=== PATIENT | female | born 1945 | race Caucasian/White ===

== ENCOUNTER → 2019-12-06 09:09 | Outpatient (BNVA) | payer MEDICARE, OTHER, SELFPAY | PROVIDERS: Family Provider Family Medicine; PCP Family Medicine; Visit Provider Family Medicine | DX: I10 Essential (primary) hypertension (principal); E78.2 Mixed hyperlipidemia; M25.50 Pain in unspecified joint; G89.29 Other chronic pain; Z86.711 Personal history of pulmonary embolism; I26.99 Other pulmonary embolism without acute cor pulmonale; Z79.01 Long term (current) use of anticoagulants; F17.219 Nicotine dependence, cigarettes, with unspecified nicotine-induced disorders | CPT/HCPCS: 36415; 80053; 80061; 80307; 82044; 85025 ==

== ENCOUNTER → 2019-12-24 12:53 | Outpatient (BNVA) | payer MEDICARE, OTHER, SELFPAY | PROVIDERS: Family Provider Family Medicine; PCP Family Medicine; Visit Provider Otolaryngology | DX: L30.9 Dermatitis, unspecified (principal); F17.210 Nicotine dependence, cigarettes, uncomplicated | CPT/HCPCS: 99213; 99214 ==

== ENCOUNTER 2020-03-03 19:46 | Emergency (ER) | payer MEDICARE, OTHER, SELFPAY ==
[2020-03-03 19:54] VITALS: PULSE 79; RESP 18; TEMP 36.9; O2SAT 96; BMI 35.2
[2020-03-03 19:57] VITALS: BP 188/93
--- NOTE | 2020-03-03 20:03 | ED_ITS ---
HPI - Extremity Problem General: Chief complaint: Extremity Problem,Nontraumatic Stated complaint: arm pain Time Seen by Provider: 03/03/20 20:01 History of Present Illness: HPI Narrative: Patient has a pain in her right forearm. She states that she is concerned this is a blood clot as she has had blood clots before. She is currently on Eliquis. She noticed the symptoms today as she was moving. She denies any other symptoms at this point in time such as chest pain or shortness of breath. She is concerned that pressure put on her right volar forearm by a box may have caused a blood clot. There is no other injuries or complaints. There is no overlying bruising or contusion noted. Associated symptoms: Deny chest pain, fever(s) or rash Review of Systems General: Reports: other (negative unless marked) Const: Denies: fever, chills, body aches, fatigue, malaise or diaphoresis Eyes: Denies: change in vision or blurry vision ENMT: Denies: throat pain, painful swallowing, hoarseness, ear pain, ear discharge, Change in hearing or nasal discharge Card: Denies: chest pain, palpitations, irregular heart rhythm, syncope, pre- syncope, shortness of breath on exertion or shortness of breath when lying down Resp: Denies: shortness of breath, productive cough, non-productive cough, wheezing, coughing up blood or chest congestion GI: Denies: abdominal pain, nausea, vomiting, vomiting blood, coffee grounds in vomit, diarrhea, constipation, cramping, blood in stool or black tarry stool : Denies: flank pain, painful urination, urinary frequency, urinary urgency, decreased urine ouput, urinary incontinence or blood in urine Musc: Denies: neck pain, back pain, extremity pain, extremity swelling, joint pain, joint swelling, joint warmth or joint stiffness Skin/Breast: Denies: rash, skin tenderness or yellow skin Neuro: Denies: headache, numbness in extremities, weakness in extremities, changes in sensation, lack of coordination, difficulty walking, dizziness, vertigo or confusion Endo: Denies: excessive thirst, tired all the time, cold intolerance, excessive sweating, flushing or hot flashes Reji/Lymph: Denies: easy bruising, easy bleeding, petechiae or enlarged lymph nodes All/Imm: Denies: hives, throat swelling, tongue swelling, facial swelling or acute wheezing PFSH ED PFSH: Medical History Benign essential HTN Cervical stenosis of spine Chronic joint pain Chronic obstructive pulmonary disease, unspecified Demyelinating disease Enrolled in chronic care management Gastro-esophageal reflux disease without esophagitis Mixed hyperlipidemia Personal history of transient ischemic attack (TIA), and cerebral infarction without residual deficits Pulmonary embolism on long-term anticoagulation therapy Renal function test abnormal Restless legs syndrome Spinal stenosis, lumbar region without neurogenic claudication Surgical History H/O: hysterectomy S/P bilateral cataract extraction S/P cervical spinal fusion S/P cholecystectomy S/P tonsillectomy and adenoidectomy Family History Other Heart disease Social History Smoking and tobacco status: current every day smoker cigarettes Packs smoked per day: 0.5 Alcohol intake: never Household members: spouse Marital status: Physical Exam Const: COMMON NORMALS: no apparent distress, oriented x3, no limitations, healthy appearing and well nourished EXAM LIMITATIONS: no altered mental status GENERAL APPEARANCE: cooperative, well kempt and well developed ORIENTATION/CONSCIOUSNESS: Yes awake HENMT: COMMON NORMALS: normocephalic, head/scalp atraumatic, hearing grossly normal bilaterally, external ears normal, EAC's normal, external nose normal and moist oral mucous membranes HEAD & SCALP: normal to inspection, normocephalic and atraumatic FACE & SINUS: normal facial exam and face symmetric NOSE: external nose normal and nares normal EXTERNAL EAR: Yes external ears normal EXTERNAL AUDITORY CANAL: EAC's normal MOUTH: oral and palatal mucosa normal and tongue normal Eye: COMMON NORMALS: PERRL, EOMs intact bilaterally, conjunctivae normal and no scleral icterus GENERAL EYE: normal appearance of both eyes and normal light reflex CONJUNCTIVA: Yes conjunctivae normal SCLERA: sclerae normal CORNEA: Yes corneas normal PUPIL: Yes PERRL DIRECT OPHTHALMOSCOPY: Yes normal light reflex Neck/C-Spine: COMMON NORMALS: full ROM, no lymphadenopathy, supple, no meningeal signs and no JVD GENERAL: Yes normal visual inspection and Yes trachea midline CERVICAL SPINE: Yes cervical ROM normal Chest: COMMONS NORMALS: inspection of chest normal and palpation of chest normal Resp: COMMON NORMALS: normal respiratory effort, no retractions, no use of accessory muscles and clear to auscultation bilaterally EFFORT & INSPECTION: Yes able to speak in complete sentences AUSCULTATION: clear to auscultation bilaterally Cardio: COMMON NORMALS: no JVD, regular rate, regular rhythm, S1 normal heart sound, S2 normal heart sound, no gallops, no clicks, no murmurs and no rub JUGULAR VENOUS DISTENTION: no JVD RATE: regular rate RHYTHM: regular rhythm HEART SOUNDS: S1 normal and S2 normal GI: COMMON NORMALS: soft to palpation, non-tender, no hepatosplenomegaly and no masses INSPECTION: Yes normal to inspection PALPATION: Yes soft and Yes no hepatosplenomegaly : COMMON NORMALS: Yes no CVA tenderness BLADDER/KIDNEY EXAM: Yes no CVA tenderness Back/Pelvis: COMMON NORMALS: no CVA tenderness, thoracic and lumbar spine normal to inspection, no thoracic nor lumbar tenderness and thoraco-lumbar ROM normal Extremity: COMMON NORMALS: normal to inspection, full ROM, normal capillary refill, no joint enlargement, no clubbing, cyanosis or edema and no calf tenderness Neuro: COMMON NORMALS: oriented x3, CN's II-XII intact bilaterally, moves all extremities, no focal motor deficits and no sensory deficits noted MENINGEAL SIGNS: Yes no meningeal signs Psych: COMMON NORMALS: mental status grossly normal, thought process normal, cooperative, affect normal, speech normal and activity/motor behavior normal APPEARANCE: Yes well kempt SPEECH: Yes normal speech THOUGHT PROCESS: normal thought process Skin: COMMON NORMALS: no rashes or lesions noted, skin turgor normal, no jaundice, no petechiae and no mottling GENERAL SKIN EXAM: no rashes or lesions noted and turgor normal Course Vital Signs: Vital signs: Vital Signs Temperature 98.5 F 03/03/20 19:54 Pulse Rate 87 03/03/20 21:43 Respiratory Rate 18 03/03/20 21:43 Blood Pressure 169/75 03/03/20 21:43 Pulse Oximetry 98 03/03/20 21:43 MDM - Extremity (Nontraumatic) MDM Narrative: Medical decision making narrative: Patient's ultrasound is negative. She is reassured to hear this. She denies any other questions or concerns she is satisfied with this and would like to go home. I see no evidence of significant hematoma on the surface but will wait and treat her for possible underlying hematoma. Patient denies any radicular symptoms to me. She has no other complaints or concerns and now that she has the answer of no blood clot she wants to be discharged as soon as possible. Imaging Data^: US: Radiologist's impression: Ultrasound right upper extremity venous Doppler - negative for DVT. Discharge Plan Discharge Patient Disposition: Home, Self-Care Clinical Impression: Arm pain Qualifiers: Laterality: right Qualified Code(s): M79.601 - Pain in right arm Condition: Stable Prescriptions: No Action Eliquis 5 mg tablet 5 mg PO BID Qty: 60 RF: 2 tramadol 50 mg tablet 100 mg PO Q8H PRN (Reason: pain) Qty: 180 RF: 1 pantoprazole [Protonix] 40 mg tablet,delayed release (DR/EC) 40 mg PO ONCE Qty: 90 RF: 1 fluconazole 150 mg tablet 150 mg PO DAILY Qty: 2 RF: 0 furosemide [Lasix] 20 mg tablet 20 mg PO QAM RF: 0 potassium chloride 10 mEq tablet,ER particles/crystals 10 meq PO .QOD RF: 0 nystatin 100,000 unit/gram cream 1 applic TOPICAL BID RF: 0 metoprolol tartrate 50 mg tablet 50 mg PO Q12H Qty: 60 RF: 3 atorvastatin [Lipitor] 10 mg tablet 10 mg PO .at bedtime Qty: 7 RF: 0 valsartan 320 mg tablet 320 mg PO DAILY Qty: 30 RF: 1 Referrals: Alisia Ferguson DO [Primary Care Provider] - 4-7 days Discharge Diet: Advance as tolerated Discharge Activity: Increase activity as tolerated Patient Instructions: Contusion in Adults (ED) Activity Restrictions/Additional Instructions: Please return to the ER immediately for any of the signs or symptoms listed on your discharge instruction sheets, worsening/changing of your symptoms, you are not getting better as quickly as expected, or for ANY other cause or concerns. Discharge Date/Time: 03/03/20 21:44 Coding Level of Care Code ED Nougat Cutter Machine for Fredis Fwd Exam Comprehensive
--- NOTE | 2020-03-03 20:03 | USCV_ITS ---
[place], [place] Age: 74 Gender: F : 1945 Exam Date: 03/03/2020 21:08 Ordering Phys: Kirsta Hines DO Technologist: Tim Murillo [place]am Location[place] [facility] [place]ication: RT ARM PAIN AND SWELLING HISTORY: Upper extremity pain. PROCEDURES: Venous duplex imaging was performed in only the right upper extremity. The following venous structures were evaluated: internal jugular vein, subclavian vein, axillary vein, and brachial veins. In addition, the basilic vein and cephalic vein. FINDINGS: No evidence of deep vein thrombosis or superficial thrombophlebitis in the right upper extremity. CONCLUSIONS No evidence of thrombus of the right upper extremity veins. Ronal Fleming MD (Electronically Signed) Final Date: 05 March 2020 13:14 S
[2020-03-03 20:57] VITALS: PULSE 66
[2020-03-03 21:43] VITALS: BP 169/75; PULSE 87; RESP 18; O2SAT 98
== END 2020-03-03 21:44 | disposition home or self-care (01) ==
PROVIDERS: Emergency Provider Emergency Medicine; Family Provider Family Medicine; PCP Family Medicine
DX: M79.601 Pain in right arm (principal); J44.9 Chronic obstructive pulmonary disease, unspecified; K21.9 Gastro-esophageal reflux disease without esophagitis; I10 Essential (primary) hypertension; E78.2 Mixed hyperlipidemia; I26.99 Other pulmonary embolism without acute cor pulmonale; Z86.73 Personal history of transient ischemic attack (TIA), and cerebral infarction without residual deficits; G25.81 Restless legs syndrome; Z79.01 Long term (current) use of anticoagulants; F17.210 Nicotine dependence, cigarettes, uncomplicated
CPT/HCPCS: 12345; 93971; 99281; 99282

== ENCOUNTER → 2020-04-15 11:38 | Outpatient (BNVA) | payer MEDICARE, OTHER, SELFPAY | PROVIDERS: Family Provider Family Medicine; PCP Family Medicine; Visit Provider Family Medicine | DX: L30.9 Dermatitis, unspecified (principal); E78.2 Mixed hyperlipidemia | CPT/HCPCS: 80053; 80061 ==

== ENCOUNTER → 2020-06-15 09:55 | Outpatient (BNVA) | payer MEDICARE, OTHER, SELFPAY | PROVIDERS: Family Provider Family Medicine; PCP Family Medicine; Referring Provider Family Medicine; Visit Provider Specialist | DX: M17.11 Unilateral primary osteoarthritis, right knee (principal); I26.99 Other pulmonary embolism without acute cor pulmonale; Z79.01 Long term (current) use of anticoagulants; I83.93 Asymptomatic varicose veins of bilateral lower extremities | CPT/HCPCS: 73560; 73565; 87081 ==

== ENCOUNTER → 2020-07-28 10:23 | Outpatient (BNVA) | payer MEDICARE, OTHER, SELFPAY | PROVIDERS: Family Provider Family Medicine; PCP Family Medicine; Visit Provider Family Medicine | DX: Z01.818 Encounter for other preprocedural examination (principal); I10 Essential (primary) hypertension; Z68.34 Body mass index [BMI] 34.0-34.9, adult; F17.219 Nicotine dependence, cigarettes, with unspecified nicotine-induced disorders | CPT/HCPCS: 80053; 85025 ==

== ENCOUNTER → 2020-10-04 10:07 | Outpatient (BNVA) | payer MEDICARE, OTHER, SELFPAY | PROVIDERS: Family Provider Family Medicine; PCP Family Medicine; Visit Provider Nurse Practitioner | DX: R30.9 Painful micturition, unspecified (principal); N39.0 Urinary tract infection, site not specified | CPT/HCPCS: 81000; 87086 ==

== ENCOUNTER 2020-10-19 18:20 | Emergency (ER) | payer MEDICARE, OTHER, SELFPAY ==
[2020-10-19 19:03] VITALS: BP 199/97; PULSE 66; RESP 16; TEMP 36.7; O2SAT 98
--- NOTE | 2020-10-19 20:34 | ED_ITS ---
HPI - General Adult General: Chief complaint: General Medical Stated complaint: high bp/most recent 186/101 Time Seen by Provider: 10/19/20 20:22 History of Present Illness: HPI narrative: Patient is a 75-year-old female comes to the ED with elevated blood pressure. Patient says she has been working with her primary care physician to help get her blood pressure controlled. She is currently on metoprolol 50 mg twice a day 1 in the morning and 1 at night and lisinopril 20 mg 1 in the morning and 1 at night. Her PCP has been having trouble getting her blood pressure controlled and sent her over to see interactive designer. Patient says she was just prescribed an additional blood pressure medication which is a diuretic that is at her pharmacy right now and she is going to pick it up and start taking it tomorrow to try and help with her blood pressures. Patient said her blood pressure at home before coming to the ED was around 210/105. She reports having no symptoms at all. Denies any headache or vision changes or any other neurological symptoms. She states this is been an ongoing issue and her primary care physician has had trouble controlling her blood pressure. Associated symptoms: Deny chest pain, dyspnea, headache(s), nausea, rash, palpitations or vomiting Review of Systems Narrative: Elevated blood pressure but denies any symptoms. Const: Denies: fever(s), chills or fatigue Eyes: Denies: change in vision or eye discomfort ENMT: Denies: throat pain, odynophagia, nasal discharge or nasal congestion Card: Denies: chest pain, palpitations, edema, swelling of feet/ankles, dyspnea on exertion or orthopnea Resp: Denies: dyspnea, productive cough or non-productive cough GI: Denies: abdominal pain, nausea, vomiting, diarrhea, constipation or hematochezia : Denies: flank pain, dysuria or hematuria Musc: Denies: neck pain, back pain or extremity swelling Skin/Breast: Denies: rash or new lesions Neuro: Denies: headache(s), numbness in extremities or weakness in extremities PFS ED PFSH: Medical History Cervical stenosis of spine Chronic joint pain Chronic obstructive pulmonary disease, unspecified Demyelinating disease Gastro-esophageal reflux disease without esophagitis Mixed hyperlipidemia Personal history of transient ischemic attack (TIA), and cerebral infarction without residual deficits Pulmonary embolism on long-term anticoagulation therapy Renal function test abnormal Restless legs syndrome Spinal stenosis, lumbar region without neurogenic claudication Surgical History H/O: hysterectomy S/P bilateral cataract extraction S/P cervical spinal fusion S/P cholecystectomy S/P tonsillectomy and adenoidectomy Family History Other Heart disease Social History Smoking and tobacco status: current every day smoker cigarettes Packs smoked per day: 0.25 Alcohol intake: never Household members: spouse Marital status: Physical Exam Const: COMMON NORMALS: no acute distress, patient oriented x3, healthy appearing and alert GENERAL APPEARANCE: cooperative and comfortable HENMT: COMMON NORMALS: normocephalic HEAD & SCALP: normocephalic MOUTH: Normal oral and palatal mucosa present THROAT: posterior oropharynx normal and uvula midline Neck/C-Spine: COMMON NORMALS: supple GENERAL: Yes normal visual inspection Resp: COMMON NORMALS: normal respiratory effort, No retractions, No use of accessory muscles and clear to auscultation bilaterally AUSCULTATION: clear to auscultation bilaterally Cardio: COMMON NORMALS: regular rate, regular rhythm, S1 normal heart sound present, S2 normal heart sound present, No gallops present (Cardio), No clicks present (Cardio), No murmurs present (Cardio) and Peripheral pulses 2+ throughout RATE: regular rate RHYTHM: regular rhythm HEART SOUNDS: S1 normal heart sound present and S2 normal heart sound present PERIPHERAL PULSES: Peripheral pulses 2+ throughout GI: COMMON NORMALS: Normal to inspection, nondistended, normoactive bowel sounds present, Soft to palpation, non-tender and no masses PALPATION: Yes Soft to palpation : COMMON NORMALS: Yes no CVA tenderness BLADDER/KIDNEY EXAM: Yes no CVA tenderness Back/Pelvis: COMMON NORMALS: no CVA tenderness Extremity: COMMON NORMALS: normal to inspection and no pedal edema Neuro: COMMON NORMALS: patient oriented x3, CN's II-XII intact bilaterally, moves all extremities, no focal motor deficits and no sensory deficits noted SENSORIUM/ORIENTATION: Yes alert COORDINATION/BALANCE: [id number] test normal SPEECH: speech normal GAIT: Yes Normal gait present SENSORY EXAM: Yes extremities (intact to soft touch) MOTOR EXAM: 5/5 motor strength present throughout COORDINATION: [id number] test normal Skin: GENERAL SKIN EXAM: dry skin Course Reevaluation(s): Reevaluation #1: Blood pressure was 189/95 when I went in and checked on patient after she received hydralazine Time: 22:02 Vital Signs: Vital signs: Vital Signs Temperature 98.0 F 10/19/20 19:03 Pulse Rate 66 10/19/20 19:03 Respiratory Rate 16 10/19/20 19:03 Blood Pressure 183/92 10/19/20 22:54 Pulse Oximetry 98 10/19/20 19:03 Blood pressure was 189/95 when I went in and checked on patient after she received hydralazine MDM - General Adult MDM Narrative: Medical decision making narrative: Patient is a 75-year-old female comes the ED with elevated blood pressure. Patient's blood pressure was 204/89 while here in the ED. she has no symptoms. Patient did say that her PCP just added another blood pressure medication for patient to take and it is currently at the pharmacy and she will start taking it tomorrow. She currently takes lisinopril 20 mg twice daily and metoprolol 50 mg twice daily. Neuro exam was completely normal and the rest of physical exam was normal. Patient appeared in no acute distress or pain. Patient was given IV hydralazine 2 doses of 10 mg and blood pressure went down to 183/92 and she was discharged. 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 Return to ED precautions given. Patient understood agree with plan. Discharge Plan Discharge Patient Disposition: Home Clinical Impression: Hypertensive urgency Condition: Stable Prescriptions: No Action potassium chloride 10 mEq tablet,ER particles/crystals 10 meq PO .QOD RF: 0 furosemide [Lasix] 20 mg tablet 20 mg PO QAM Qty: 90 RF: 0 lisinopril 20 mg tablet 40 mg PO BID RF: 0 metoprolol tartrate 50 mg tablet 50 mg PO Q12H Qty: 60 RF: 3 phenazopyridine [Pyridium] 200 mg tablet 200 mg PO TID Qty: 6 RF: 0 pantoprazole [Protonix] 40 mg tablet,delayed release (DR/EC) 40 mg PO ONCE Qty: 90 RF: 1 Xarelto 20 mg tablet 20 mg PO DAILY Qty: 30 RF: 1 tramadol 50 mg tablet 100 mg PO Q8H PRN (Reason: pain) Qty: 180 RF: 0 hydralazine 50 mg tablet 50 mg PO TID Qty: 120 RF: 1 Discharge Orders: Discharge Order (Routine); Ordered 10/19/20 Ordered By: Gt Encarnacion Referrals: Alisia Ferguson DO [Primary Care Provider] - Discharge Diet: Regular Discharge Activity: Increase activity as tolerated Patient Instructions: Chronic Hypertension (ED), Hypertensive Crisis (ED) Activity Restrictions/Additional Instructions: Follow-up with medical provider as directed in 7 to 10 days. Continue taking all home medications as prescribed. Make sure to metal pickling equipment operator your new blood pressure medication tomorrow and start taking it to help with blood pressure control. Return to the ER or your medical provider if condition worsens. Please read and understand discharge instructions. If any questions, please ask. Coding Level of Care Code ED Psychology Assistant for Fredis Fwd Exam Detailed
[2020-10-19 21:38] VITALS: BP 195/109
[2020-10-19] MEDS: hyDRALAzine 20 mg/mL INJ 1 mL 10 MG IVP ×2 (21:43→22:25)
[2020-10-19 22:43] VITALS: BP 201/84
[2020-10-19 22:54] VITALS: BP 183/92
== END 2020-10-19 22:55 | disposition home or self-care (01) ==
PROVIDERS: Emergency Provider Physician Assistant; PCP Family Medicine
DX: I16.0 Hypertensive urgency (principal); E78.2 Mixed hyperlipidemia; F17.210 Nicotine dependence, cigarettes, uncomplicated
CPT/HCPCS: 12345; 96374; 96375; 96376; 99282; 99283; J0360

== ENCOUNTER 2020-10-21 11:36 | Emergency (ER) | payer MEDICARE, OTHER, SELFPAY ==
[2020-10-21 11:37] VITALS: BP 188/82; PULSE 116; RESP 20; TEMP 36.6; O2SAT 95; BMI 33.7
[2020-10-21 11:48] VITALS: BP 172/94; PULSE 60; RESP 16; O2SAT 96
--- NOTE | 2020-10-21 11:50 | XR_ITS ---
WS: [id number] XR chest 1V portable [id number] REASON FOR EXAM: dyspnea/cough FINDINGS: Mild tortuosity of the thoracic aorta. Heart is at the upper limits of normal in size. No active pulmonary parenchymal or pleural disease is noted. Calcified granulomatous changes are seen in both hemithoraces. Moderate degenerative changes in both shoulders. Moderate degenerative spondylosis in the mid and low er thoracic spine. XR/XR chest 1V portable [id number] IMPRESSION: No acute chest abnormality.
--- NOTE | 2020-10-21 11:50 | ECG_ITS ---
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: : 1945 Requested By: Jacinto Orozco Order Number: [id number] Luis Alberto MD: EVARISTO RUDD Measurements Intervals [place] Rate: 58 P: 59 MN: 174 QRS: 14 QRSD: 109 T: 48 QT: 428 QTc: 424 Interpretive Statements SINUS BRADYCARDIA INCOMPLETE RIGHT BUNDLE BRANCH BLOCK [90+ ms QRS DURATION, TERMINAL R IN V1/V2, 40+ ms S IN I/aVL/V4/V5/V6] Compared to ECG 01/21/2019 17:42:38 Incomplete right bundle-branch block now present Sinus rhythm no longer present Intraventricular conduction delay no longer present ST (T wave) deviation no longer present Electronically Signed On 10-22-2020 15:23:16 HAND SPRAYER by EVARISTO RUDD [email or web address]
[2020-10-21 12:01] LABS: Basophils % 0.4 %; Eosinophils # 0.1 10^3/uL (0.0-0.8); Eosinophils % 0.9 %; Hemoglobin 16.1 g/dL (11.5-15.3); Lymphocytes # 2.7 10^3/uL (0.8-4.8); Mean Corpuscular HGB Conc 31.6 g/dL (30.0-36.0); Mean Corpuscular Hemoglobin 29.9 pg (28.0-34.0); Mean Corpuscular Volume 94.6 fL (81-99); Mean Platelet Volume 11.7 fL (7.4-10.4); Monocytes # 0.5 10^3/uL (0.2-0.9); Monocytes % 5.1 %; Neutrophils # 6.27 10^3/uL (1.8-7.7); Neutrophils % 65.3 %; Nucleated Red Blood Cells % 0 %; Platelet Count 307 10^3/cmm (130-400); Red Blood Count 5.39 10^6/uL (4.1-5.3); Red Cell Distribution Width 13.5 % (12.1-15.1); White Blood Count 9.6 10^3/uL (4.0-10.0)
--- NOTE | 2020-10-21 12:06 | PC.NURSE ---
Report given to ADA Ramon
[2020-10-21] MEDS: hyDRALAzine 50 mg Tablet PO (12:09)
--- NOTE | 2020-10-21 12:13 | PC.NURSE ---
XR performed at bedside.
[2020-10-21 12:19] LABS: Alanine Aminotransferase 9 U/L (0-33); Albumin Level 3.7 g/dL (3.5-5.2); Alkaline Phosphatase 129 IU/L (35-105); Anion Gap 15.9 (5-19); Aspartate Amino Transferase 14 U/L (0-32); Blood Urea Nitrogen 9 mg/dL (8-23); Calcium 9.1 mg/dL (8.5-10.5); Carbon Dioxide 24 mmol/L (22-29); Chloride 102 mmol/L (98-107); Globulin 3.7 g/dL (1.3-4.6); Glucose 152 mg/dL (65-115); Osmolality Calculated 288 mOsm/kg (285-295); Potassium 3.9 mmol/L (3.5-5.1); Sodium 138 mmol/L (136-145); Total Bilirubin 0.3 mg/dL (0.15-1.2); Total Protein 7.4 g/dL (6.6-8.7)
[2020-10-21 13:27] VITALS: BP 172/93; PULSE 66; RESP 15; O2SAT 97
[2020-10-21 14:15] VITALS: BP 162/84
--- NOTE | 2020-10-21 15:14 | W.ED.GENADLT ---
HPI - General Adult General: Chief complaint: General Medical Stated complaint: SYMPTOMATIC HTN Time Seen by Provider: 10/21/20 11:39 History of Present Illness: HPI narrative: 75-year-old female presents emergency room with complaint of elevated blood pressure. She is recently and was seen before for elevated blood pressure medication adjustments were made despite this she continues to have elevated blood pressure at home. She is on multiple antihypertensives. He has not had any difficulty with speech or swallowing no focal neurologic deficits no chest pain. Onset (ago): day(s) Location: head Severity: moderate Relieving factors: none Exacerbating factors: none Associated symptoms: Reports headache(s) and malaise; Deny chest pain, confusion, cough, diaphoresis, decreased appetite, dyspnea, fevers/chills, nausea, rash, palpitations, seizures, short of breath, syncope, vomiting or weakness Review of Systems Const: Reports: malaise; Denies: diaphoresis ENMT: Denies: throat pain, ear or mastoid pain, nasal discharge or nasal congestion Card: Denies: chest pain, palpitations or syncope Resp: Denies: dyspnea GI: Denies: nausea or vomiting : Denies: flank pain, difficulty voiding, dysuria, urinary frequency or urinary urgency Skin/Breast: Denies: rash Neuro: Reports: headache(s); Denies: confusion PFSH ED PFSH: Medical History Cervical stenosis of spine Chronic joint pain Chronic obstructive pulmonary disease, unspecified Demyelinating disease Gastro-esophageal reflux disease without esophagitis Mixed hyperlipidemia Personal history of transient ischemic attack (TIA), and cerebral infarction without residual deficits Pulmonary embolism on long-term anticoagulation therapy Renal function test abnormal Restless legs syndrome Spinal stenosis, lumbar region without neurogenic claudication Surgical History H/O: hysterectomy S/P bilateral cataract extraction S/P cervical spinal fusion S/P cholecystectomy S/P tonsillectomy and adenoidectomy Family History Other Heart disease Social History Smoking and tobacco status: current every day smoker cigarettes Packs smoked per day: 0.25 Alcohol intake: never Household members: spouse Marital status: Physical Exam Const: COMMON NORMALS: no acute distress GENERAL APPEARANCE: cooperative and comfortable ORIENTATION/CONSCIOUSNESS: Yes awake, Yes oriented to person, Yes oriented to place and Yes oriented to time HENMT: COMMON NORMALS: normocephalic, atraumatic and hearing grossly normal bilaterally HEAD & SCALP: normocephalic and atraumatic Neck/C-Spine: COMMON NORMALS: no JVD Resp: COMMON NORMALS: normal respiratory effort, No retractions, No use of accessory muscles and clear to auscultation bilaterally AUSCULTATION: clear to auscultation bilaterally Cardio: COMMON NORMALS: no JVD, regular rate, regular rhythm and No murmurs present (Cardio) RATE: regular rate RHYTHM: regular rhythm GI: COMMON NORMALS: Soft to palpation and No hepatosplenomegaly present AUSCULTATION: Yes normoactive bowel sounds PALPATION: Yes Soft to palpation, No Tenderness to palpation present (GI), No Guarding due to palpation present (GI) and Yes No hepatosplenomegaly present Extremity: COMMON NORMALS: normal to inspection, capillary refill normal, no clubbing, cyanosis or edema, no calf tenderness and no pedal edema Neuro: SENSORIUM/ORIENTATION: Yes oriented to person, Yes oriented to place and Yes oriented to time Skin: COMMON NORMALS: no rashes or lesions noted GENERAL SKIN EXAM: no rashes or lesions noted Course Vital Signs: Vital signs: Vital Signs Temperature 97.8 F 10/21/20 11:37 Pulse Rate 65 10/21/20 15:40 Respiratory Rate 14 10/21/20 15:40 Blood Pressure 156/112 10/21/20 15:40 Pulse Oximetry 65 L 10/21/20 15:40 MDM - General Adult MDM Narrative: Medical decision making narrative: Reviewed findings with patient we will get a go ahead and discharge her home did encourage her to follow-up with her primary care Dr. Hernandez medicine list initially lisinopril was listed as 50 mg 3 times daily we went to talk to her to discharge her she states it was supposed to be 75 3 times daily but she has not been taking it we will go ahead and discharge her home on the 75 3 times daily follow-up with her primary care doctor within the next 4 to 5 days. Lab Data: Labs: Lab Results 10/21/20 10/21/20 Range/Units 11:15 11:15 WBC 9.6 (4.0-10.0) 10^3/ uL RBC 5.39 H (4.1-5.3) 10^6/u L Hgb 16.1 H (11.5-15.3) g/dL Hct 51.0 H (37.0-47.0) % MCV 94.6 (81-99) fL MCH 29.9 (28.0-34.0) pg MCHC 31.6 (30.0-36.0) g/dL RDW 13.5 (12.1-15.1) % Plt Count 307 (130-400) 10^3/c mm MPV 11.7 H (7.4-10.4) fL Neut % (Auto) 65.3 % Lymph % (Auto) 28.0 % [place] % (Auto) 5.1 % Eos % (Auto) 0.9 % Baso % (Auto) 0.4 % Neut # (Auto) 6.27 (1.8-7.7) 10^3/u L Lymph # (Auto) 2.7 (0.8-4.8) 10^3/u L [place] # (Auto) 0.5 (0.2-0.9) 10^3/u L Eos # (Auto) 0.1 (0.0-0.8) 10^3/u L Baso # (Auto) 0.0 (0.0-0.1) 10^3/u L Nucleated RBC % (a uto) 0 % Nucleated RBCs # 0.0 /100WBC Sodium 138 (136-145) mmol/L Potassium 3.9 (3.5-5.1) mmol/L Chloride 102 (98-107) mmol/L Carbon Dioxide 24 (22-29) mmol/L Anion Gap 15.9 (5-19) BUN 9 (8-23) mg/dL Creatinine 0.8 (0.5-0.9) mg/dL GFR Calculation Not Reportable Glucose 152 H (65-115) mg/dL Calculated Osmolal ity 288 (285-295) mOsm/k g Calcium 9.1 (8.5-10.5) mg/dL Total Bilirubin 0.3 (0.15-1.2) mg/dL AST 14 (0-32) U/L ALT 9 (0-33) U/L Alkaline Phosphata se 129 H (35-105) IU/L Total Protein 7.4 (6.6-8.7) g/dL Albumin 3.7 (3.5-5.2) g/dL Globulin 3.7 (1.3-4.6) g/dL Discharge Plan Discharge Patient Disposition: Home Clinical Impression: Uncontrolled hypertension Condition: Stable Prescriptions: Changed hydralazine 50 mg tablet 75 mg PO TID Qty: 120 RF: 1 No Action potassium chloride 10 mEq tablet,ER particles/crystals 10 meq PO .QOD RF: 0 furosemide [Lasix] 20 mg tablet 20 mg PO QAM Qty: 90 RF: 0 lisinopril 20 mg tablet 40 mg PO BID RF: 0 metoprolol tartrate 50 mg tablet 50 mg PO Q12H Qty: 60 RF: 3 phenazopyridine [Pyridium] 200 mg tablet 200 mg PO TID Qty: 6 RF: 0 Xarelto 20 mg tablet 20 mg PO DAILY Qty: 30 RF: 1 tramadol 50 mg tablet 100 mg PO Q8H PRN (Reason: pain) Qty: 180 RF: 0 Protonix 40 mg tablet,delayed release (DR/EC) 40 mg PO DAILY RF: 0 Discharge Orders: Discharge Order (Routine); Ordered 10/21/20 Ordered By: Jacinto Bennett Referrals: Alisia Ferguson DO [Primary Care Provider] - Discharge Diet: Usual diet Discharge Activity: Increase activity as tolerated Activity Restrictions/Additional Instructions: Increase hydralazine to 75 mg 3 times daily. Follow-up with your primary care doctor within 5 to 6 days for reevaluation of blood pressure. If any worsening problems return. Coding Level of Care Code ED Telecommunication Equipment Repairer for Fredis Vick
[2020-10-21 15:40] VITALS: BP 156/112; PULSE 65; RESP 14; O2SAT 65
--- NOTE | 2020-10-26 13:59 | DCPLANNER ---
client relationship manager had message to schedule a follow up appointment for patient with [facility]. client relationship manager called [facility], spoke with Mel, gave clinic patients information. A follow up appointment was scheduled for Monday, October 28, 2020 at 1:45 with Mitali Teran NP. client relationship manager will let patient know of scheduled appointment.
--- NOTE | 2020-10-29 15:10 | DCPLANNER ---
Patient did attend appointment scheduled for 10.28.20 with [facility] - patient did attend appointment.
== END 2020-10-21 15:41 | disposition home or self-care (01) ==
PROVIDERS: Emergency Provider Family Medicine; PCP Family Medicine
DX: I10 Essential (primary) hypertension (principal); J44.9 Chronic obstructive pulmonary disease, unspecified; E78.2 Mixed hyperlipidemia; F17.210 Nicotine dependence, cigarettes, uncomplicated
CPT/HCPCS: 12345; 71045; 80053; 85025; 93005; 99282; 99283

== ENCOUNTER 2020-10-26 11:33 | Emergency (ER) | payer MEDICARE, OTHER, SELFPAY ==
[2020-10-26 12:06] VITALS: BP 172/92; PULSE 82; RESP 14; TEMP 36.4; O2SAT 95; BMI 33.4
--- NOTE | 2020-10-26 12:13 | ECG_ITS ---
[facility] Test Date: 2020-10-26 Pat Name: Kathie Valerio Department: Room: Gender: Female Network Control Supervisor: : 1945 Requested By: Elsy Theodore Order Number: [id number] Luis Alberto MD: EVARISTO RUDD Measurements Intervals [place] Rate: 68 P: 63 OK: 170 QRS: 17 QRSD: 110 T: 62 QT: 447 QTc: 478 Interpretive Statements SINUS RHYTHM WITH FREQUENT SUPRAVENTRICULAR PREMATURE COMPLEXES POSSIBLE INFERIOR MYOCARDIAL INFARCTION [30 ms Q WAVE IN II/aVF], PROBABLY OLD ABNORMAL RHYTHM ECG Compared to ECG 10/21/2020 12:00:59 Myocardial infarct finding now present Sinus bradycardia no longer present Incomplete right bundle-branch block no longer present Electronically Signed On 10-26-2020 17:24:13 ALUMNAE SECRETARY by EVARISTO RUDD [id number]
--- NOTE | 2020-10-26 14:05 | W.ED.GENADLT ---
HPI - General Adult General: Chief complaint: General Medical Stated complaint: High BP Time Seen by Provider: 10/26/20 12:16 History of Present Illness: HPI narrative: 75 yo female presetn with complaints of elevated BP. SHe was seen here recently for the same adn her hydralazine was increased. Today she reports elevated BP in the 200-220 systolic range. she re[ports having taken all of her meds. on presentation here her systolic BP is in the 150 range. Reports having some head fullness and discomfort in the back of her neck earlier that is all resolved she thought she had a little weakness in her left leg but she denies any difficulty with walking. No dizziness no difficulty speech or swallowing. Onset (ago): day(s) Location: head Radiation: non-radiation Severity: mild Relieving factors: medication Exacerbating factors: none Associated symptoms: Deny chest pain, confusion, cough, diaphoresis, decreased appetite, dyspnea, fevers/chills, headache(s), malaise, nausea, rash, palpitations, seizures, short of breath, syncope, vomiting or weakness Treatments prior to arrival: none Review of Systems Const: Denies: malaise or diaphoresis ENMT: Denies: throat pain, ear or mastoid pain, nasal discharge or nasal congestion Card: Denies: chest pain, palpitations or syncope Resp: Denies: dyspnea GI: Denies: nausea or vomiting : Denies: flank pain, difficulty voiding, dysuria, urinary frequency or urinary urgency Skin/Breast: Denies: rash Neuro: Denies: headache(s) or confusion PFS ED PFSH: Medical History Cervical stenosis of spine Chronic joint pain Chronic obstructive pulmonary disease, unspecified Demyelinating disease Gastro-esophageal reflux disease without esophagitis Mixed hyperlipidemia Personal history of transient ischemic attack (TIA), and cerebral infarction without residual deficits Pulmonary embolism on long-term anticoagulation therapy Renal function test abnormal Restless legs syndrome Spinal stenosis, lumbar region without neurogenic claudication Surgical History H/O: hysterectomy S/P bilateral cataract extraction S/P cervical spinal fusion S/P cholecystectomy S/P tonsillectomy and adenoidectomy Family History Other Heart disease Social History Smoking and tobacco status: current every day smoker cigarettes Packs smoked per day: 0.25 Alcohol intake: never Household members: spouse Marital status: Physical Exam Const: COMMON NORMALS: no acute distress GENERAL APPEARANCE: cooperative and comfortable ORIENTATION/CONSCIOUSNESS: Yes awake, Yes oriented to person, Yes oriented to place and Yes oriented to time HENMT: COMMON NORMALS: normocephalic, atraumatic and hearing grossly normal bilaterally HEAD & SCALP: normocephalic and atraumatic Eye: COMMON NORMALS: Equal, round and reactive pupils present, EOMs intact bilaterally, conjunctivae normal and no scleral icterus CONJUNCTIVA: Yes conjunctivae normal PUPIL: Yes Equal, round and reactive pupils present Neck/C-Spine: COMMON NORMALS: no JVD Resp: COMMON NORMALS: normal respiratory effort, No retractions, No use of accessory muscles and clear to auscultation bilaterally AUSCULTATION: clear to auscultation bilaterally Cardio: COMMON NORMALS: no JVD, regular rate, regular rhythm and No murmurs present (Cardio) RATE: regular rate RHYTHM: regular rhythm GI: COMMON NORMALS: Soft to palpation and No hepatosplenomegaly present AUSCULTATION: Yes normoactive bowel sounds PALPATION: Yes Soft to palpation, No Tenderness to palpation present (GI), No Guarding due to palpation present (GI) and Yes No hepatosplenomegaly present Extremity: COMMON NORMALS: normal to inspection, capillary refill normal, no clubbing, cyanosis or edema, no calf tenderness and no pedal edema Neuro: SENSORIUM/ORIENTATION: Yes oriented to person, Yes oriented to place and Yes oriented to time OTHER: [id number] testing is normal Skin: COMMON NORMALS: no rashes or lesions noted GENERAL SKIN EXAM: no rashes or lesions noted Course Vital Signs: Vital signs: Vital Signs Temperature 97.6 F 10/26/20 12:06 Pulse Rate 61 10/26/20 15:00 Respiratory Rate 16 10/26/20 15:00 Blood Pressure 168/86 10/26/20 15:00 Pulse Oximetry 91 10/26/20 15:00 MDM - General Adult MDM Narrative: Medical decision making narrative: No change in medications at this point recommend that she continue her current medicines. Increase her potassium to 3 times daily x2 days. She has an appointment with cardiology later this week keep that appointment as scheduled. Recommend she get her home blood pressure monitor calibrated. At this point her blood pressure initially and she got here was in the 150s at the time of this dictation is 174 hesitant to make any further adjustments to her medication is afraid she is likely to have her blood pressure bottom out. I's and highly suspicious of her home blood pressure readings most often in people in the emergency room they will have artificially elevated blood pressures whereas hers were markedly lower than what her home readings were with her home readings being the 220 range. Lab Data: Labs: Lab Results 10/26/20 10/26/20 10/26/20 Range/Units 14:21 14:21 15:24 WBC 9.6 (4.0-10.0) 10^3/ uL RBC 5.28 (4.1-5.3) 10^6/u L Hgb 15.8 H (11.5-15.3) g/dL Hct 49.8 H (37.0-47.0) % MCV 94.3 (81-99) fL MCH 29.9 (28.0-34.0) pg MCHC 31.7 (30.0-36.0) g/dL RDW 13.6 (12.1-15.1) % Plt Count 265 (130-400) 10^3/c mm MPV 10.8 H (7.4-10.4) fL Neut % (Auto) 69.0 % Lymph % (Auto) 24.3 % [place] % (Auto) 5.5 % Eos % (Auto) 0.5 % Baso % (Auto) 0.4 % Neut # (Auto) 6.58 (1.8-7.7) 10^3/u L Lymph # (Auto) 2.3 (0.8-4.8) 10^3/u L [place] # (Auto) 0.5 (0.2-0.9) 10^3/u L Eos # (Auto) 0.1 (0.0-0.8) 10^3/u L Baso # (Auto) 0.0 (0.0-0.1) 10^3/u L Nucleated RBC % (a uto) 0 % Nucleated RBCs # 0.0 /100WBC Sodium Cancelled 142 Potassium Cancelled 3.3 L Chloride Cancelled 105 Carbon Dioxide Cancelled 27 Anion Gap Cancelled 13.3 BUN Cancelled 11 Creatinine Cancelled 0.8 GFR Calculation Cancelled Not Reportable Glucose Cancelled 129 H Calculated Osmolal ity Cancelled 295 Calcium Cancelled 9.0 Total Bilirubin Cancelled 0.3 AST Cancelled 19 ALT Cancelled 10 Alkaline Phosphata se Cancelled 116 H Total Protein Cancelled 6.8 Albumin Cancelled 3.9 Globulin Cancelled 2.9 Discharge Plan Discharge Patient Disposition: Home Clinical Impression: Uncontrolled hypertension Condition: Stable Prescriptions: No Action potassium chloride 10 mEq tablet,ER particles/crystals 10 meq PO DAILY RF: 0 furosemide [Lasix] 20 mg tablet 20 mg PO QAM Qty: 90 RF: 0 lisinopril 20 mg tablet 40 mg PO BID RF: 0 metoprolol tartrate 50 mg tablet 50 mg PO Q12H Qty: 60 RF: 3 Xarelto 20 mg tablet 20 mg PO DAILY Qty: 30 RF: 1 tramadol 50 mg tablet 100 mg PO Q8H PRN (Reason: pain) Qty: 180 RF: 0 pantoprazole [Protonix] 40 mg tablet,delayed release (DR/EC) 40 mg PO DAILY RF: 0 hydralazine 50 mg tablet 75 mg PO TID Qty: 120 RF: 1 Discharge Orders: Discharge Order (Routine); Ordered 10/26/20 Ordered By: Jacinto Bennett Referrals: Alisia Ferguson DO [Primary Care Provider] - Mitali Teran FNP [Nurse Practitioner] - 10/28/20 1:45 pm Activity Restrictions/Additional Instructions: Continue taking current antihypertensives follow-up with cardiology previously scheduled. Recommend that you have your home blood pressure monitor calibrated. Coding Level of Care Code ED Supervisor Pyrotechnic Loading for Regineg Fwd Exam Comprehensive NIH stroke score NIHSS Level Of Consciousness - 1a: 0 Level Of Consciousness Questions - 1b: Both Correct Level Of Consciousness Commands - 1c: Both Correct Best Gaze - 2: Normal Visual Sin - 3: No Visual Loss Facial Palsy - 4: Normal Motor Arm Right - 5: No Drift Motor Arm Left - 5: No Drift Motor Leg Right - 6: No Drift Motor Leg Left - 6: No Drift Limb Ataxia - 7: Absent Sensory - 8: Normal Best Language - 9: No Aphasia Dysarthia - 10: Normal Extinction And Inattention - 11: 0 Score Total Score: 0
[2020-10-26 14:16] VITALS: BP 151/74; O2SAT 96
[2020-10-26 14:26] LABS: Basophils % 0.4 %; Eosinophils # 0.1 10^3/uL (0.0-0.8); Eosinophils % 0.5 %; Hematocrit 49.8 % (37.0-47.0); Hemoglobin 15.8 g/dL (11.5-15.3); Lymphocytes # 2.3 10^3/uL (0.8-4.8); Lymphocytes % 24.3 %; Mean Corpuscular HGB Conc 31.7 g/dL (30.0-36.0); Mean Corpuscular Hemoglobin 29.9 pg (28.0-34.0); Mean Corpuscular Volume 94.3 fL (81-99); Mean Platelet Volume 10.8 fL (7.4-10.4); Monocytes # 0.5 10^3/uL (0.2-0.9); Monocytes % 5.5 %; Neutrophils # 6.58 10^3/uL (1.8-7.7); Nucleated Red Blood Cells % 0 %; Platelet Count 265 10^3/cmm (130-400); Red Blood Count 5.28 10^6/uL (4.1-5.3); Red Cell Distribution Width 13.6 % (12.1-15.1); White Blood Count 9.6 10^3/uL (4.0-10.0)
[2020-10-26 14:30] VITALS: BP 180/82; PULSE 62; RESP 16; O2SAT 91
[2020-10-26 15:00] VITALS: BP 168/86; PULSE 61; RESP 16; O2SAT 91
[2020-10-26 16:14] LABS: Alanine Aminotransferase 10 U/L (0-33); Albumin Level 3.9 g/dL (3.5-5.2); Alkaline Phosphatase 116 IU/L (35-105); Anion Gap 13.3 (5-19); Aspartate Amino Transferase 19 U/L (0-32); Blood Urea Nitrogen 11 mg/dL (8-23); Carbon Dioxide 27 mmol/L (22-29); Chloride 105 mmol/L (98-107); Creatinine Clr Calc Pharmacy 77.3729; Globulin 2.9 g/dL (1.3-4.6); Glucose 129 mg/dL (65-115); Osmolality Calculated 295 mOsm/kg (285-295); Potassium 3.3 mmol/L (3.5-5.1); Sodium 142 mmol/L (136-145); Total Bilirubin 0.3 mg/dL (0.15-1.2); Total Protein 6.8 g/dL (6.6-8.7)
[2020-10-26 16:29] VITALS: BP 174/84; PULSE 78; RESP 16; O2SAT 97
== END 2020-10-26 16:30 | disposition home or self-care (01) ==
PROVIDERS: Emergency Provider Family Medicine; PCP Family Medicine
DX: I10 Essential (primary) hypertension (principal); J44.9 Chronic obstructive pulmonary disease, unspecified; E78.2 Mixed hyperlipidemia; F17.210 Nicotine dependence, cigarettes, uncomplicated
CPT/HCPCS: 12345; 80053; 85025; 93005; 99283

== ENCOUNTER 2020-11-18 09:51 | Outpatient (CLI) | payer MEDICARE, OTHER, SELFPAY ==
--- NOTE | 2020-11-18 10:15 | USCV_ITS ---
[place], [place] Age: 75 Gender: F : 1945 Exam Date: 11/18/2020 10:05 Ordering Phys: Mitali Teran Technologist: Citlalli Cleveland [place] [facility] [place]: [place]N Risk Factors: Previous Vascular Surgery: Right Brachial BP: / Left Brachial BP: / Right Left Velocity (cm/s) Spectral Plaque Velocity (cm/s) Spectral Plaque Syst/Diast Broadening Syst/Diast Broadening 95.30/ 25.70 Prox CCA 95.50 / 21.10 109.20/26.80 Mid CCA 117.00/ 30.20 98.50/ 24.60 Distal CCA 101.40/ 22.10 73.60/ 17.30 Prox ICA 83.40 / 17.40 79.10/ 23.10 Mid ICA 82.40 / 28.40 87.00/ 23.30 Distal ICA 103.80/ 36.50 139.90 ECA 161.20 0.80 ICA/CCA 0.89 Antegrade Vertebral Antegrade 68.40/ 17.60 cm/s 59.80/ 15.40 cm/s Tri Subclavian Tri 101.2 124.6 0 0 FINDINGS Comparison:. 09/19/17. No significant elevation of systolic or diastolic velocities. Small amount of calcified plaque in the bifurcations. Left greater than right. Bilateral antegrade vertebral arteries. CONCLUSIONS Bilateral ICA stenosis less than 50%. Mild carotid atherosclerosis. Dr. Martine Javier DO (Electronically Signed) Final Date: 18 November 2020 10:57 S
== END 2020-11-18 09:52 | disposition home or self-care (01) ==
LOC: US 09:51
PROVIDERS: PCP Family Medicine; Visit Provider Nurse Practitioner Family
DX: I65.23 Occlusion and stenosis of bilateral carotid arteries (principal); I10 Essential (primary) hypertension
CPT/HCPCS: 93880

== ENCOUNTER 2020-12-18 10:04 | Outpatient (CLI) | payer MEDICARE, OTHER, SELFPAY ==
--- NOTE | 2020-12-18 10:15 | US_ITS ---
WS: [id number] RENAL ULTRASOUND HISTORY: uncontrolled htn COMPARISON: None available. TECHNIQUE: 2-D and color Doppler imaging of the kidney submitted. Right kidney: 9.3 cm x 5.4 cm x 5.2 cm. Normal echogenicity with no hydronephrosis or mass. Left kidney: 9.3 cm x 4.7 cm x 4.8 cm. Normal echogenicity with no hydronephrosis or mass. Aorta: Normal. Urinary Bladder: Nondistended. US/US renal BI* [id number] IMPRESSION: Normal renal ultrasound.
== END 2020-12-18 10:05 | disposition home or self-care (01) ==
LOC: US 10:08
PROVIDERS: PCP Family Medicine; Visit Provider Family Medicine
DX: I10 Essential (primary) hypertension (principal)
CPT/HCPCS: 76770

== ENCOUNTER → 2021-07-20 14:31 | Outpatient (BNVA) | payer MEDICARE, OTHER, SELFPAY | PROVIDERS: PCP Family Medicine; Visit Provider Family Medicine | DX: E78.2 Mixed hyperlipidemia (principal); G89.29 Other chronic pain; I10 Essential (primary) hypertension; I26.99 Other pulmonary embolism without acute cor pulmonale; K21.9 Gastro-esophageal reflux disease without esophagitis; M25.50 Pain in unspecified joint; Z79.01 Long term (current) use of anticoagulants | CPT/HCPCS: 80053; 80061; 84443; 85025 ==

== ENCOUNTER → 2021-10-19 15:03 | Outpatient (BNVA) | payer MEDICARE, OTHER, SELFPAY | PROVIDERS: PCP Family Medicine; Visit Provider Family Medicine | DX: N39.0 Urinary tract infection, site not specified (principal) | CPT/HCPCS: 81000; 87077; 87086; 87184 ==

== ENCOUNTER → 2021-11-11 15:59 | Outpatient (BNVA) | payer MEDICARE, OTHER, SELFPAY | PROVIDERS: PCP Family Medicine; Visit Provider Family Medicine | DX: R05.9 Cough, unspecified (principal); R51.9 Headache, unspecified | CPT/HCPCS: 87400; 87426 ==

== ENCOUNTER → 2022-04-28 09:37 | Outpatient (BNVA) | payer MEDICARE, OTHER, SELFPAY | PROVIDERS: Visit Provider Family Medicine | DX: R06.02 Shortness of breath (principal); L65.9 Nonscarring hair loss, unspecified; R05.9 Cough, unspecified; R51.9 Headache, unspecified; I10 Essential (primary) hypertension | CPT/HCPCS: 71046; 80053; 84439; 84443; 85025 ==

== ENCOUNTER 2022-04-30 11:50 | Observation (INO) | payer MEDICARE, SELFPAY ==
[2022-04-30] VITALS (8 sets, daily range): BP systolic 128–190; BP diastolic 73–90; PULSE 55–95; RESP 16–18; TEMP 36.3–37.2; O2SAT 94–99; BMI 31.7
--- NOTE | 2022-04-30 12:05 | CTR_ITS ---
PROCEDURE INFORMATION: Exam: CT Head Without Contrast Exam date and time: 04/30/2022 12:14 PM Age: 76 years old Clinical indication: Speech disturbance/slurred speech. Stroke like symptoms TECHNIQUE: Imaging protocol: Computed tomography of the head without contrast. Radiation optimization: All CT scans at this facility use at least one of these dose optimization techniques: automated exposure control; mA and/or kV adjustment per patient size (includes targeted exams where dose is matched to clinical indication); or iterative reconstruction. COMPARISON: MR Head w wo Contrast 06/07/2017 10:02 AM RADIATION DOSE METRICS: Total DLP (mGy-cm): 828.87 FINDINGS: Brain: No acute intracranial hemorrhage. There are lacunar infarcts within/adjacent to the basal ganglia, bilaterally, and right thalamus of indeterminate age. These appear new from 2017. No mass, mass effect or midline shift. There is mild patchy subcortical and periventricular hypodensity, most commonly associated with small vessel ischemic disease of indeterminate age. The posterior fossa is grossly unremarkable; however, it is partially obscurred by beam hardening artifact. Cerebral ventricles: The ventricles are prominent, compatible with mild parenchymal volume loss. Paranasal sinuses: The visualized paranasal sinuses are clear. Mastoid air cells: No mastoid effusion. Bones/joints: No acute fracture is seen. Soft tissues: No subcutaneous soft tissue swelling is seen. Vasculature: There is no evidence of acute large vessel infarct. Orbits: The visualized orbits are unremarkable. CT/CT head wo con* [id number] IMPRESSION: 1. No evidence of acute large vessel infarct by noncontrast CT. 2. Lacunar infarcts within/adjacent to the basal ganglia, bilaterally, and right thalamus that appear new from 2017; however, they remain indeterminate in age. Consider MRI to further assess if clinically warranted. 3. Mild senescent changes as above. 4. No acute intracranial hemorrhage.
--- NOTE | 2022-04-30 12:30 | CTR_ITS ---
PROCEDURE INFORMATION: Exam: CT Angiography Head With Contrast, Arteriography Exam date and time: 04/30/2022 1:36 PM Age: 76 years old Clinical indication: Speech disturbance; Additional info: CVA TECHNIQUE: Imaging protocol: Computed tomography angiography of the head with contrast. Exam focused on the arteries. 3D rendering (Not supervised by radiologist): MIP and/or 3D reconstructed images were created by the technologist. Radiation optimization: All CT scans at this facility use at least one of these dose optimization techniques: automated exposure control; mA and/or kV adjustment per patient size (includes targeted exams where dose is matched to clinical indication); or iterative reconstruction. Contrast material: VISI 320; Contrast volume: 95 ml; Contrast route: INTRAVENOUS (IV); COMPARISON: CT head wo con* [id number] 04/30/2022 12:14 PM RADIATION DOSE METRICS: Total DLP (mGy-cm): 2102 FINDINGS: ANTERIOR CIRCULATION: Right internal carotid artery: Unremarkable. Intracranial segment is patent with no significant stenosis. No aneurysm. Right middle cerebral artery: Unremarkable. No occlusion or significant stenosis. No aneurysm. Right anterior cerebral artery: Unremarkable. No occlusion or significant stenosis. No aneurysm. Left internal carotid artery: Unremarkable. Intracranial segment is patent with no significant stenosis. No aneurysm. Left middle cerebral artery: Unremarkable. No occlusion or significant stenosis. No aneurysm. Left anterior cerebral artery: Unremarkable. No occlusion or significant stenosis. No aneurysm. POSTERIOR CIRCULATION: Right vertebral artery: Unremarkable. No occlusion or significant stenosis. No aneurysm. Left vertebral artery: Unremarkable. No occlusion or significant stenosis. No aneurysm. Basilar artery: Unremarkable. No occlusion or significant stenosis. No aneurysm. Right posterior cerebral artery: Unremarkable. No occlusion or significant stenosis. No aneurysm. Left posterior cerebral artery: Unremarkable. No occlusion or significant stenosis. No aneurysm. Brain: No definite mass, mass effect, or midline shift. Cerebral ventricles: No ventriculomegaly. Bones/joints: Unremarkable. No acute fracture. Soft tissues: Unremarkable. PROCEDURE INFORMATION: Exam: CT Angiography Neck With Contrast Exam date and time: 04/30/2022 1:36 PM Age: 76 years old Clinical indication: Speech disturbance; Additional info: CVA TECHNIQUE: Imaging protocol: Computed tomography angiography of the neck with contrast. 3D rendering (Not supervised by radiologist): MIP and/or 3D reconstructed images were created by the technologist. Radiation optimization: All CT scans at this facility use at least one of these dose optimization techniques: automated exposure control; mA and/or kV adjustment per patient size (includes targeted exams where dose is matched to clinical indication); or iterative reconstruction. Contrast material: VISI 320; Contrast volume: 95 ml; Contrast route: INTRAVENOUS (IV); COMPARISON: CT Cervical Spine w cont [id number] 06/06/2017 10:33 AM RADIATION DOSE METRICS: Total DLP (mGy-cm): 2103 FINDINGS: Right common carotid artery: No stenosis. No dissection or occlusion. Right internal carotid artery: No stenosis of the extracranial segment. No dissection or occlusion. Right external carotid artery: No occlusion or stenosis of the origin. Left common carotid artery: No stenosis. No dissection or occlusion. Left internal carotid artery: No stenosis of the extracranial segment. No dissection or occlusion. Left external carotid artery: No occlusion or stenosis of the origin. Right vertebral artery: No stenosis. No dissection or occlusion. Left vertebral artery: No stenosis. No dissection or occlusion. Soft tissues: Normal. No significant soft tissue swelling. Bones/joints: No acute fracture. ACDF hardware and disc spacers in the C4-C7 segment. Lungs: Moderate emphysematous changes at the lung apices. CT/CT angio headneck* [id number] IMPRESSION: No large vessel stenosis or occlusion. IMPRESSION: No stenosis or occlusion. REFERENCES: NASCET CRITERIA. The degree of internal carotid artery stenosis is based on NASCET criteria. Normal is no stenosis. Mild is less than 50% stenosis. Moderate is 50-69% stenosis. Severe is 70% to 99% stenosis. Total occlusion is no detectable patent lumen.
--- NOTE | 2022-04-30 12:30 | ECG_ITS ---
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 Measurements Intervals [place] Rate: 54 P: 60 DC: 182 QRS: 33 QRSD: 107 T: 62 QT: 430 QTc: 408 Interpretive Statements SINUS BRADYCARDIA WITH OCCASIONAL SUPRAVENTRICULAR PREMATURE COMPLEXES INCOMPLETE RIGHT BUNDLE BRANCH BLOCK [90+ ms QRS DURATION, TERMINAL R IN V1/V2, 40+ ms S IN I/aVL/V4/V5/V6] INTERPRETATION BASED ON A DEFAULT AGE OF 40 YEARS Compared to ECG 10/26/2020 14:05:44 Incomplete right bundle-branch block now present Sinus rhythm no longer present Myocardial infarct finding no longer present Electronically Signed On 05-01-2022 9:20:14 CDT by Andrea Duval M.D. [id number]
--- NOTE | 2022-04-30 12:32 | W.ED.NEUROSD ---
HPI - Neuro Symptoms/Deficit General: Chief Complaint: Weakness Stated Complaint: Numbness in head and face, trouble talking Time Seen by Provider: 04/30/22 12:13 Source: patient Mode of arrival: ambulatory Limitations: no limitations History of Present Illness: 76-year-old female presents emergency room complaining of slurred speech and right-sided facial numbness. She states began around 11:00 she presents at 1150. She states she has had a headache with some pressure behind her eyes for several weeks and months chronically has elevated blood pressure issues and has been in the emergency room multiple times in the past for elevated blood pressure. Patient's has a history of previous TIAs and CVA per her old records. There are no family members at the bedside to confirm the timing the patient states she was last normal at 11 AM. Additionally patient is on Xarelto for previous pulmonary emboli. She denies any chest pain. Onset (ago): hour(s) Last Observed Normal: 11:00 Location: speech and right face (Decreased sensation no facial droop at the time my exam) Severity: mild Quality: numb Relieving factors: none Exacerbating factors: none Context: sudden onset Associated symptoms: Deny chest pain, cough, diaphoresis, fevers/chills, headache(s), anorexia, malaise, nausea, seizures, short of breath, syncope, tingling, vertigo, vomiting or weakness Treatments Prior to Arrival: none Review of Systems Const: Denies: fever(s), chills, body aches, malaise or diaphoresis Eyes: Denies: change in vision, blurry vision or blind spots ENMT: Denies: throat pain, ear or mastoid pain, nasal discharge or nasal congestion Card: Denies: chest pain, palpitations, irregular heart rhythm or syncope Resp: Denies: dyspnea, productive cough or non-productive cough GI: Denies: abdominal pain, nausea, vomiting, hematemesis, coffee ground emesis or dysphagia : Denies: flank pain, difficulty voiding, dysuria, urinary frequency or urinary urgency Skin/Breast: Denies: rash or pruritus Neuro: Denies: headache(s) or vertigo PFSH ED PFSH: Medical History Cervical stenosis of spine Chronic joint pain Chronic obstructive pulmonary disease, unspecified Demyelinating disease Gastro-esophageal reflux disease without esophagitis Left carotid stenosis Mixed hyperlipidemia Personal history of transient ischemic attack (TIA), and cerebral infarction without residual deficits Pulmonary embolism on long-term anticoagulation therapy Renal function test abnormal Restless legs syndrome Spinal stenosis, lumbar region without neurogenic claudication Surgical History H/O: hysterectomy S/P bilateral cataract extraction S/P cervical spinal fusion S/P cholecystectomy S/P tonsillectomy and adenoidectomy Family History Other Heart disease Social History Smoking and tobacco status: never smoked Alcohol intake: never Household members: spouse Marital status: NIH stroke score NIHSS: Level Of Consciousness - 1a: 0 Level Of Consciousness Questions - 1b: Both Correct Level Of Consciousness Commands - 1c: Both Correct Best Gaze - 2: Normal Visual Sin - 3: No Visual Loss Facial Palsy - 4: Normal Motor Arm Right - 5: No Drift Motor Arm Left - 5: No Drift Motor Leg Right - 6: No Drift Motor Leg Left - 6: No Drift Limb Ataxia - 7: Absent Sensory - 8: Mild To Moderate Loss Best Language - 9: No Aphasia Dysarthia - 10: Mild/Moderate Dysarthia Extinction And Inattention - 11: 0 Score: Total Score: 2 Physical Exam Const: GENERAL APPEARANCE: cooperative and comfortable ORIENTATION/CONSCIOUSNESS: Yes awake HENMT: COMMON NORMALS: normocephalic, atraumatic, hearing grossly normal bilaterally, external ears normal, EAC's normal, TM's normal bilaterally, Normal nasal mucous membranes and turbinates present, moist oral mucous membranes and oropharynx normal HEAD & SCALP: normocephalic and atraumatic NOSE: Normal nasal mucous membranes and turbinates present EXTERNAL EAR: Yes external ears normal EXTERNAL AUDITORY CANAL: EAC's normal TYMPANIC MEMBRANE: TM's normal bilaterally Eye: COMMON NORMALS: Equal, round and reactive pupils present, EOMs intact bilaterally, conjunctivae normal and no scleral icterus CONJUNCTIVA: Yes conjunctivae normal PUPIL: Yes Equal, round and reactive pupils present Neck/C-Spine: COMMON NORMALS: full ROM, no lymphadenopathy, supple and no JVD Resp: COMMON NORMALS: normal respiratory effort, No retractions, No use of accessory muscles and clear to auscultation bilaterally AUSCULTATION: clear to auscultation bilaterally Cardio: COMMON NORMALS: no JVD, regular rate, regular rhythm and No murmurs present (Cardio) RATE: regular rate RHYTHM: regular rhythm GI: COMMON NORMALS: Soft to palpation and No hepatosplenomegaly present AUSCULTATION: Yes normoactive bowel sounds PALPATION: Yes Soft to palpation, No Tenderness to palpation present (GI), No Guarding due to palpation present (GI) and Yes No hepatosplenomegaly present Extremity: COMMON NORMALS: normal to inspection, capillary refill normal, no clubbing, cyanosis or edema, no calf tenderness and no pedal edema Neuro: OTHER: See NIH scoring Skin: COMMON NORMALS: no rashes or lesions noted GENERAL SKIN EXAM: no rashes or lesions noted Course Vital Signs: Vital signs: Vital Signs Temperature 97.8 F 05/01/22 14:48 Pulse Rate 61 05/01/22 14:48 Respiratory Rate 16 05/01/22 14:48 Blood Pressure 162/72 05/01/22 14:48 Pulse Oximetry 96 05/01/22 14:48 MDM - Neuro Symptoms/Deficit Medical Decision Making NIH score of 2 based on dysarthria and slight right-sided facial numbness. No past medical history of his left carotid artery stenosis on the carotid duplex done October 2020 bilateral ICA stenosis less than 50%. Vertebral arteries were normal there was only described a small amount of plaque with the left being slightly greater than the right on the internal carotid artery. Discussed with hospitalist will admit for further evaluation. Medical Records I reviewed the patient's medical records. Lab Data I reviewed the patient's lab results. : 05/01/22 03:05 05/01/22 03:[address] 04/30/22 12:05 IMPRESSION: 1. No evidence of acute large vessel infarct by noncontrast CT. 2. Lacunar infarcts within/adjacent to the basal ganglia, bilaterally, and right thalamus that appear new from 2017; however, they remain indeterminate in age. Consider MRI to further assess if clinically warranted. 3. Mild senescent changes as above. 4. No acute intracranial hemorrhage. Head/Neck CTA 04/30/22 12:30 IMPRESSION: No large vessel stenosis or occlusion. IMPRESSION: No stenosis or occlusion. REFERENCES: NASCET CRITERIA. The degree of internal carotid artery stenosis is based on NASCET criteria. Normal is no stenosis. Mild is less than 50% stenosis. Moderate is 50-69% stenosis. Severe is 70% to 99% stenosis. Total occlusion is no detectable patent lumen. Laboratory Results WBC 7.6 10^3/uL (4.0-10.0) 04/30/22 12:39 RBC 4.95 10^6/uL (4.1-5.3) 04/30/22 12:39 Hgb 14.9 g/dL (11.5-15.3) 04/30/22 12:39 Hct 45.9 % (37.0-47.0) 04/30/22 12:39 MCV 92.7 fl (81-99) 04/30/22 12:39 MCH 30.1 pg (28.0-34.0) 04/30/22 12:39 MCHC 32.5 g/dL (30.0-36.0) 04/30/22 12:39 RDW 13.6 % (12.1-15.1) 04/30/22 12:39 Plt Count 212 10^3/cmm (130-400) 04/30/22 12:39 MPV 11.2 fL (7.4-10.4) H 04/30/22 12:39 Neut % (Auto) 68.6 % 04/30/22 12:39 Lymph % (Auto) 24.2 % 04/30/22 12:39 Emmet % (Auto) 5.6 % 04/30/22 12:39 Eos % (Auto) 0.9 % 04/30/22 12:39 Baso % (Auto) 0.4 % 04/30/22 12:39 Neut # (Auto) 5.23 10^3/uL (1.8-7.7) 04/30/22 12:39 Lymph # (Auto) 1.9 10^3/uL (0.8-4.8) 04/30/22 12:39 Emmet # (Auto) 0.4 10^3/uL (0.2-0.9) 04/30/22 12:39 Eos # (Auto) 0.1 10^3/uL (0.0-0.8) 04/30/22 12:39 Baso # (Auto) 0.0 10^3/uL (0.0-0.1) 04/30/22 12:39 Nucleated RBC % (auto) 0 % 04/30/22 12:39 Nucleated RBCs # 0.0 /100WBC 04/30/22 12:39 PT 14.50 SECONDS (12.1-14.9) 04/30/22 12:39 INR 1.10 (0.8-1.2) 04/30/22 12:39 APTT 34.2 SECONDS (23.9-36.7) 04/30/22 12:39 Sodium 138 mmol/L (136-145) 04/30/22 12:39 Potassium 4.2 mmol/L (3.5-5.1) 04/30/22 12:39 Chloride 103 mmol/L (98-107) 04/30/22 12:39 Carbon Dioxide 25 mmol/L (22-29) 04/30/22 12:39 Anion Gap 14.2 (5-19) 04/30/22 12:39 BUN 12 mg/dL (8-23) 04/30/22 12:39 Creatinine 1.0 mg/dL (0.5-0.9) H 04/30/22 12:39 GFR Calculation Not Reportable 04/30/22 12:39 Glucose 115 mg/dL (65-115) 04/30/22 12:39 POC Glucose 107 mg/dL (70-110) 04/30/22 12:29 Calculated Osmolality 287 mOsm/kg (285-295) 04/30/22 12:39 Calcium 8.8 mg/dL (8.5-10.5) 04/30/22 12:39 Iron 141 ug/dL (37-145) 04/30/22 12:39 TIBC 301 mcg/dl 04/30/22 12:39 % Saturation 46.8 % (20-50) 04/30/22 12:39 Unsat Iron Binding 160 ug/dL (112-347) 04/30/22 12:39 Total Bilirubin 0.4 mg/dL (0.15-1.2) 04/30/22 12:39 AST 15 U/L (0-32) 04/30/22 12:39 ALT 8 U/L (0-33) 04/30/22 12:39 Alkaline Phosphatase 119 IU/L (35-105) H 04/30/22 12:39 Total Protein 6.9 g/dL (6.6-8.7) 04/30/22 12:39 Albumin 3.7 g/dL (3.5-5.2) 04/30/22 12:39 Globulin 3.2 g/dL (1.3-4.6) 04/30/22 12:39 Urine Color Yellow (Yellow) 04/30/22 14:07 Urine Appearance Sl hazy (CLEAR) 04/30/22 14:07 Urine pH 6 (5-7) 04/30/22 14:07 Ur Specific [place] 1.010 (1.005-1.030) 04/30/22 14:07 Urine Protein 1+ (Negative) H 04/30/22 14:07 Urine Glucose (UA) Norm (Normal) 04/30/22 14:07 Urine Ketones Negative (Negative) 04/30/22 14:07 Urine Blood Neg (Negative) 04/30/22 14:07 Urine Nitrate Positive (Negative) H 04/30/22 14:07 Urine Bilirubin Neg (Negative) 04/30/22 14:07 Urine Urobilinogen Norm mg/dL (Negative) 04/30/22 14:07 Ur Leukocyte Esterase 2+ (Negative) H 04/30/22 14:07 Urine RBC None /hpf (0-2) 04/30/22 14:07 Urine WBC 80-100 /hpf (0-5) H 04/30/22 14:07 Ur Squamous Epith Cells 5-10 /hpf (0-5) H 04/30/22 14:07 Ur Transition Epith Cell 0-4 /hpf 04/30/22 14:07 Amorphous Sediment Not Reportable 04/30/22 14:07 Urine Bacteria 4+ /hpf (NONE) H 04/30/22 14:07 Urine Mucus 1+ /hpf 04/30/22 14:07 Urine Opiates Screen Negative ng/mL (Negative) 04/30/22 14:07 Ur Barbiturates Screen Negative ng/mL (Negative) 04/30/22 14:07 Ur Phencyclidine Scrn Negative ng/mL (Negative) 04/30/22 14:07 Ur Amphetamines Screen Negative ng/mL (Negative) 04/30/22 14:07 U Benzodiazepines Scrn Negative ng/mL (Negative) 04/30/22 14:07 Urine Cocaine Screen Negative ng/mL (Negative) 04/30/22 14:07 U Marijuana (THC) Screen Negative ng/mL (Negative) 04/30/22 14:07 Discharge Plan Discharge Patient Disposition: Admitted As Inpatient Admit Provider: Ran Mata Clinical Impression: TIA (transient ischemic attack), Uncontrolled hypertension, Current use of registration officer anticoagulation, Left carotid stenosis, Pulmonary embolism Condition: Stable Discharge Diet: As Directed and Cardiac Discharge Activity: Resume usual activity and Increase activity as tolerated Coding Level of Care Code ED 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
[2022-04-30 12:45] LABS: Glucose Point of Care 107 mg/dL (70-110)
--- NOTE | 2022-04-30 12:46 | PC.NURSE ---
PT PLACED ON CONTINUOUS SPO2, NIBP, AND CM.
[2022-04-30 12:53] LABS: Basophils % 0.4 %; Eosinophils # 0.1 10^3/uL (0.0-0.8); Eosinophils % 0.9 %; Hematocrit 45.9 % (37.0-47.0); Hemoglobin 14.9 g/dL (11.5-15.3); Lymphocytes # 1.9 10^3/uL (0.8-4.8); Lymphocytes % 24.2 %; Mean Corpuscular HGB Conc 32.5 g/dL (30.0-36.0); Mean Corpuscular Hemoglobin 30.1 pg (28.0-34.0); Mean Corpuscular Volume 92.7 fl (81-99); Mean Platelet Volume 11.2 fL (7.4-10.4); Monocytes # 0.4 10^3/uL (0.2-0.9); Monocytes % 5.6 %; Neutrophils # 5.23 10^3/uL (1.8-7.7); Neutrophils % 68.6 %; Nucleated Red Blood Cells % 0 %; Platelet Count 212 10^3/cmm (130-400); Red Blood Count 4.95 10^6/uL (4.1-5.3); Red Cell Distribution Width 13.6 % (12.1-15.1); White Blood Count 7.6 10^3/uL (4.0-10.0)
[2022-04-30 13:05] LABS: Partial Thromboplastin Time 34.2 SECONDS (23.9-36.7)
[2022-04-30 13:13] LABS: Alanine Aminotransferase 8 U/L (0-33); Albumin Level 3.7 g/dL (3.5-5.2); Alkaline Phosphatase 119 IU/L (35-105); Anion Gap 14.2 (5-19); Aspartate Amino Transferase 15 U/L (0-32); Blood Urea Nitrogen 12 mg/dL (8-23); Calcium 8.8 mg/dL (8.5-10.5); Carbon Dioxide 25 mmol/L (22-29); Chloride 103 mmol/L (98-107); Globulin 3.2 g/dL (1.3-4.6); Glucose 115 mg/dL (65-115); Osmolality Calculated 287 mOsm/kg (285-295); Potassium 4.2 mmol/L (3.5-5.1); Sodium 138 mmol/L (136-145); Total Bilirubin 0.4 mg/dL (0.15-1.2); Total Protein 6.9 g/dL (6.6-8.7)
[2022-04-30] MEDS: iodixanol 320 mg/mL 100mL Btl IV (13:45)
--- NOTE | 2022-04-30 15:01 | PC.NURSE ---
Report given to Sanjana CABALLERO and Sonya
[2022-04-30 15:26] LABS: Iron 141 ug/dL (37-145); Percent Saturation 46.8 % (20-50); Total Iron Binding Capacity 301 mcg/dl; Unsaturated Iron Binding 160 ug/dL (112-347)
--- NOTE | 2022-04-30 15:53 | P.HP_ITS ---
Providers/Chief Complaint Admitting Physician: Ran Mata MD Chief Complaint: Numbness in head and face, trouble talking History of Present Illness Kathie Valerio is a 76 year old female with past medical history of left carotid stenosis, post carotid artery endarterectomy, uncontrolled hypertension, hyperlipidemia, pulmonary embolism on anticoagulation with Xarelto, COVID-19 present to the ER today when around breakfast time she started having heaviness in her head followed by slurred speech in which she was mumbling her words along with facial droopiness on the right side as noted by the family. During that time patient denies of having any nausea, chest pain, palpitation, dizziness, weakness or numbness in any of her arms or legs, bowel or bladder incontinence. In the ER patient was found to have NIH score of 2. As patient was on Xarelto and they were not sure about exact previous value time decision was made not to give tPA. On examination patient had resolution of symptoms. She was able to ambulate from chair to bed. Able to have complete conversation without any slurring of speech. As per family patient is back to her baseline. Review of Systems General: Reports: 10 or more systems reviewed and unremarkable except in HPI and below Const: Denies: fever(s), chills, body aches, change in appetite, change in weight, malaise, night sweats, diaphoresis, change in sleep pattern, daytime s leepiness or snoring Eyes: Denies: change in vision, blurry vision, photophobia, eye discomfort or eye discharge ENMT: Denies: throat pain, enlarged tonsils, hoarseness, mouth pain, oral sores, dry mouth, tinnitus, nasal congestion or post nasal drip Card: Denies: chest pain, palpitations, irregular heart rhythm, edema, swelling of feet/ankles, lightheadedness, syncope, pre-syncope, dyspnea on exertion, orthopnea, leg pain with exertion or acrocyanosis Resp: Denies: dyspnea, productive cough, non-productive cough, wheezing, stridor, pain on inspiration, change in phlegm color, hemoptysis or chest congestion GI: Denies: abdominal pain, nausea, vomiting, hematemesis, coffee ground emesis, dysphagia, heartburn, diarrhea, constipation, bloating, GI cramping, change in bowel habits, pain on defecation, hematochezia or melena : Denies: flank pain, dysuria, urinary frequency, urinary urgency, urinary hesitancy, nocturia or hematuria Musc: Denies: neck pain, back pain, extremity pain, joint pain, joint swelling, joint redness, joint stiffness or limited range of motion Neuro: Denies: headache(s), numbness in extremities, weakness in extremities, sensory changes, lack of coordination, difficulty walking, frequent falls, dizziness, vertigo, confusion, Slurred speech present, difficulty communicating thoughts or seizure-like activity Psych: Denies: anxiety, depression, mood swings, panic attacks, hopelessness or irritability Endo: Denies: polyuria, polydipsia, tired all the time, cold intolerance, excessive sweating, flushing or heat intolerance Reji/Lymph: Denies: easy bruising or easy bleeding All/Imm: Denies: tongue swelling, facial swelling or acute wheezing Medications/Allergies Home Medications Medication Instructions Recorded Confirmed Last Taken Type albuterol sulfate 90 mcg/actuation 1 inh INHALATION QID PRN #8.5 g 11/11/21 04/30/22 Unknown Rx aerosol inhaler (Ventolin HFA) tramadol 50 mg tablet 100 mg PO Q8H PRN 30 Days #180 tab 11/30/21 04/30/22 Unknown Rx pantoprazole 40 mg tablet,delayed See Rx Instructions .ROUTE 12/28/21 04/30/22 04/29/22 Rx release .COMPLEX #90 tab lisinopril 20 mg tablet 40 mg PO BID #120 tab 01/03/22 04/30/22 04/29/22 Rx carvedilol 25 mg tablet 25 mg PO BID #180 tab 01/31/22 04/30/22 04/29/22 Rx rivaroxaban 20 mg tablet (Xarelto) See Rx Instructions .ROUTE 03/01/22 04/30/22 04/29/22 Rx .COMPLEX #30 tab hydralazine 100 mg tablet 100 mg PO TID #90 tab 03/02/22 04/30/22 04/29/22 Rx Allergies Allergy/AdvReac Type Severity Reaction Status Date / Time amlodipine Allergy ANGIOEDEMA Verified 04/28/22 09:05 hydrochlorothiazide Allergy HIVES Verified 04/28/22 09:05 hydroxychloroquine Allergy LEG CRAMPS Verified 04/28/22 09:05 [From Plaquenil] levofloxacin [From Levaquin] Allergy DIFFICULTY Verified 04/28/22 09:05 BREATHING Penicillins Allergy ANAPHYLAXIS Verified 04/28/22 09:05 Sulfa (Sulfonamide Allergy RASH Verified 04/28/22 09:05 Antibiotics) PFSH Acute PFSH: Medical History Cervical stenosis of spine Chronic joint pain Chronic obstructive pulmonary disease, unspecified Demyelinating disease Gastro-esophageal reflux disease without esophagitis Left carotid stenosis Mixed hyperlipidemia Personal history of transient ischemic attack (TIA), and cerebral infarction without residual deficits Pulmonary embolism on long-term anticoagulation therapy Renal function test abnormal Restless legs syndrome Spinal stenosis, lumbar region without neurogenic claudication Surgical History H/O: hysterectomy S/P bilateral cataract extraction S/P cervical spinal fusion S/P cholecystectomy S/P tonsillectomy and adenoidectomy Family History Other Heart disease Social History Smoking and tobacco status: never smoked Alcohol intake: never Household members: spouse Marital status: Vitals/I&O/Wt Last Vital Signs Temp 98.6 F 04/30/22 11:59 Pulse 64 04/30/22 15:06 Resp 18 04/30/22 15:06 BP 182/90 04/30/22 15:06 Pulse Ox 97 04/30/22 15:06 Weight last 48 hrs Weight 94.801 kg Physical Exam Narrative: General: No acute distress, AO x3, very pleasant HEENT: PERRLA, pupils bilaterally equal and reactive Chest: Normal vesicular breath sounds, no added sounds, equal good air entry bilaterally CVS: S1-S2 regular, no murmurs, no tachycardia, no gallops, no rubs Abdomen: Soft, nontender, no organomegaly, bowel sounds present Neuro: No focal deficits, no facial deformity, AO x3, power 5/5 on left side, 4 x 5 in right upper and lower limb, no slurring of speech Data : 04/30/22 12:39 04/30/22 12:39 A&P Assessment and plan (1) TIA (transient ischemic attack): CT head, CTA head and neck results appreciated. CT head consistent with chronic lacunar infarct. Goal blood pressure less than 140/90 mmHg. Start patient on Plavix 75 mg daily. Check lipid panel. Atorvastatin 20 mg daily. Check A1c. Check echocardiogram. Telemetry monitoring. PT/OT/swallow evaluation. For now start patient on regular cardiac diet. Status: Acute (2) Uncontrolled hypertension: Goal blood pressure less than 140/90 mmHg. For now continue with home dose of carvedilol, hydralazine, lisinopril. States she does not check her blood pressure daily at home. We will titrate medications accordingly if needed. Status: Acute (3) Pulmonary embolism on long-term anticoagulation therapy: On anticoagulation with Xarelto. Continue. Currently on room air. Status: Chronic Plan Analgesia: Tylenol Glycemic control: Not needed Nutrition: Cardiac diet. Change consistently as per swallow evaluation CODE STATUS: Full code PUD prophylaxis: Famotidine DVT prophylaxis: Xarelto will suffice as DVT prophylaxis Discharge planning: Plan to discharge in next 24 hours after observation back home if remains neurologically hemodynamically stable. Admit to [facility]. 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
[2022-04-30 16:15] LABS: Amphetamines Screen Urine Negative (Negative); Barbiturates Screen Urine Negative (Negative); Benzodiazepines Screen Urine Negative (Negative); Cocaine Screen Urine Negative (Negative); Opiate Screen Urine Negative (Negative); PCP Screen Urine Negative (Negative); THC Screen Urine Negative (Negative)
[2022-04-30 16:29] LABS: Add Urine Microscopic? YES; Bilirubin Urine Neg (Negative); Blood Urine Neg (Negative); Glucose Urine UA Norm (Normal); Ketones Urine Negative (Negative); Leukocyte Esterase Urine 2+ (Negative); Nitrate Urine Positive (Negative); Protein Urine 1+ (Negative); Urine Appearance SL Hazy (CLEAR); Urine Color Yellow (Yellow); Urobilinogen Urine Norm (Negative); pH Urine 6 (5-7)
[2022-04-30 16:31] LABS: Add Urine Culture? Yes; Bacteria Urine 4+ /hpf; Mucus Urine 1+ /hpf; Transitional Epi Cells Urine 0-4 /hpf; WBC Urine 80-100 /hpf (0-5)
[2022-04-30] MEDS: lisinopril 20 mg Tablet 40 MG PO (17:41)
[2022-04-30] MEDS: rivaroxaban 10 mg Tablet 20 MG PO (17:41)
[2022-04-30] MEDS: carvedilol 25 mg Tablet PO (20:43)
[2022-04-30] MEDS: hyDRALAzine 50 mg Tablet 100 MG PO (20:43)
[2022-04-30] MEDS: atorvastatin 40 mg Tablet 20 MG PO (20:43)
[2022-05-01] VITALS: BP 122/65; PULSE 67; RESP 16; TEMP 37.1; O2SAT 96
[2022-05-01] MEDS: TRAMadol 50 mg Tablet 100 MG PO (00:45)
[2022-05-01] MEDS: nicotine 21 mg Patch 1 PATCH TRANSDERMA (00:46)
[2022-05-01 03:58] LABS: Basophils % 0.3 %; Eosinophils # 0.1 10^3/uL (0.0-0.8); Eosinophils % 1.1 %; Hematocrit 43.2 % (37.0-47.0); Hemoglobin 13.7 g/dL (11.5-15.3); Lymphocytes # 2.3 10^3/uL (0.8-4.8); Lymphocytes % 30.1 %; Mean Corpuscular HGB Conc 31.7 g/dL (30.0-36.0); Mean Corpuscular Hemoglobin 29.3 pg (28.0-34.0); Mean Corpuscular Volume 92.5 fl (81-99); Mean Platelet Volume 11.8 fL (7.4-10.4); Monocytes # 0.6 10^3/uL (0.2-0.9); Monocytes % 7.6 %; Neutrophils # 4.57 10^3/uL (1.8-7.7); Neutrophils % 60.6 %; Nucleated Red Blood Cells % 0 %; Platelet Count 176 10^3/cmm (130-400); Red Blood Count 4.67 10^6/uL (4.1-5.3); Red Cell Distribution Width 13.4 % (12.1-15.1); White Blood Count 7.5 10^3/uL (4.0-10.0)
[2022-05-01 04:00] VITALS: BP 170/82; PULSE 65; RESP 16; TEMP 36.9; O2SAT 94
[2022-05-01 04:29] LABS: Alanine Aminotransferase 7 U/L (0-33); Albumin Level 3.3 g/dL (3.5-5.2); Alkaline Phosphatase 115 IU/L (35-105); Anion Gap 11.9 (5-19); Aspartate Amino Transferase 17 U/L (0-32); Blood Urea Nitrogen 12 mg/dL (8-23); Calcium 8.5 mg/dL (8.5-10.5); Carbon Dioxide 26 mmol/L (22-29); Chloride 105 mmol/L (98-107); Chol HDL Ratio 3.89 mg/dL (0.0-4.40); Cholesterol 179 mg/dL (0-200); Globulin 2.9 g/dL (1.3-4.6); Glucose 94 mg/dL (65-115); HDL Cholesterol 46 mg/dL (60-100); LDL Cholesterol Calculated 115 mg/dL (50-129); Osmolality Calculated 288 mOsm/kg (285-295); Potassium 3.9 mmol/L (3.5-5.1); Sodium 139 mmol/L (136-145); Total Bilirubin 0.3 mg/dL (0.15-1.2); Total Protein 6.2 g/dL (6.6-8.7); Triglycerides 91 mg/dL (0-150); VLDL Cholestrol Calculation 18 mg/dL (0-30)
[2022-05-01 04:39] LABS: Estmated Average Glucose 117; Hemoglobin A1C 5.7 % (4.0-6.0)
--- NOTE | 2022-05-01 06:00 | USCV_ITS ---
[place], [place] Age: 76 Gender: F : 1945 Exam Date: 05/01/2022 09:49 Ordering Phys: Ran Mata MD Technologist: Camille Carlisle [place] [facility] [place]: CVA BP: 160 / 78 HR: 56 Rhythm: Sinus Technical Quality: Adequate MEASUREMENTS (Male / Female) Normal Values 2D ECHO LV Diastolic Diameter PLAX 4.6 cm 4.2 - 5.9 / 3.9 - 5.3 cm LV Systolic Diameter PLAX 3.2 cm LV Chamber Size 4.6 cm IVS Diastolic Thickness 1.6 cm 0.6 - 1.0 / 0.6 - 0.9 cm IVS Systolic Thickness 1.7 cm LVPW Diastolic Thickness 1.1 cm 0.6 - 1.0 / 0.6 - 0.9 cm LVPW Systolic Thickness 1.3 cm RV Chamber Size 2.3 cm LVOT Diameter 2.0 cm LV Ejection Fraction 2D Teich 59.2 % LV Ejection Fraction MOD 2C 67.7 % LV Ejection Fraction 2C AL 69.3 % LA Diameter 3.8 cm LA Width 3.1 cm LA Height 4.3 cm RA Width 3.4 cm RA Height 3.4 cm Aorta at Sinotubular Diameter 2.8 cm IVC Diameter 2.7 cm M-MODE Aortic Annulus Diameter 3.7 cm LA Ao Ratio MM 1.2 MV E Point Septal Separation 0.6 cm DOPPLER LVOT Peak Velocity 115.0 cm/s MV Area PHT 3.9 cm squared Mitral E to A Ratio 0.9 MV E' Velocity 42.0 cm/s Mitral E to MV E' Ratio 7.5 Mitral E to LV E' Lateral Ratio 8.7 Mitral E to LV E' Septal Ratio 6.6 TR Peak Velocity 169.3 cm/s TR Peak Gradient 11.5 mmHg TR Mean Velocity 134.7 cm/s TR Mean Gradient 7.4 mmHg TR Velocity Time Integral 47.1 cm TV Peak E Velocity 67.0 cm/s Right Atrial Pressure 8.0 mmHg Pulmonary Artery Systolic Pressu 19.5 mmHg PV Peak Velocity 67.0 cm/s RV Acceleration Time 0.1 s RV Ejection Time 0.4 s RV AcT/ET 0.3 FINDINGS Left Ventricle Normal left ventricular size, systolic function and wall thickness, with no regional wall motion abnormalities. Grade I/IV diastolic dysfunction (abnormal relaxation filling pattern), normal to mildly elevated filling pressures. Left ventricular ejection fraction is estimated at 65 %. Right Ventricle Normal right ventricular size and systolic function. Normal right ventricular systolic pressure. Right Atrium The right atrium is normal in size. Left Atrium The left atrium is normal in size. Mitral Valve Structurally normal mitral valve without significant stenosis or prolapse. There is no mitral regurgitation. Aortic Valve Structurally normal trileaflet aortic valve. No aortic valve stenosis. Trace to mild aortic valve regurgitation. Tricuspid Valve Structurally normal tricuspid valve without significant stenosis or regurgitation. Pulmonary artery systolic pressure is normal. Pulmonic Valve Pulmonic valve not well visualized. Pericardium Normal pericardium without effusion. Aorta Normal ascending aorta dimension. IVC The inferior vena cava pulmonary and hepatic veins appear normal. CONCLUSIONS Normal left ventricular size, systolic function and wall thickness, with no regional wall motion abnormalities. Grade I/IV diastolic dysfunction (abnormal relaxation filling pattern), normal to mildly elevated filling pressures. Left ventricular ejection fraction is estimated at 65 %. Structurally normal trileaflet aortic valve. No aortic valve stenosis. Trace to mild aortic valve regurgitation. Dr. Andrea Duval MD (Electronically Signed) Final Date: 02 May 2022 09:19 S
[2022-05-01 08:00] VITALS: BP 161/68; PULSE 55; PULSE 74; RESP 16; TEMP 36.6; O2SAT 95; O2SAT 96
[2022-05-01] MEDS: carvedilol 25 mg Tablet PO (09:02)
[2022-05-01] MEDS: lisinopril 20 mg Tablet 40 MG PO (09:02)
[2022-05-01] MEDS: hyDRALAzine 50 mg Tablet 100 MG PO (09:02)
[2022-05-01] MEDS: clopidogrel 75 mg Tablet PO (09:03)
[2022-05-01 12:00] VITALS: BP 162/72; PULSE 61; RESP 16; TEMP 36.6; O2SAT 96
--- NOTE | 2022-05-01 12:40 | P.DS_ITS ---
Discharge Providers Date of Admission: 04/30/22 15:59 Date of Discharge: May 01, 2022 Attending Provider at Admission: Ran Mata MD Attending Provider at Discharge: Ran Mata MD Diagnoses at Discharge Discharge Diagnosis (1) TIA (transient ischemic attack): Status: Acute (2) Uncontrolled hypertension: Status: Acute (3) Pulmonary embolism on long-term anticoagulation therapy: Status: Chronic Reason for Visit Reason for Visit: Numbness in head and face, trouble talking Hospital Course Hospital Course Kathie Valerio is a 76 year old female with past medical history of left carotid stenosis, post carotid artery endarterectomy, uncontrolled hypertension, hyperlipidemia, pulmonary embolism on anticoagulation with Xarelto, COVID-19 present to the ER today when around breakfast time she started having heaviness in her head followed by slurred speech in which she was mumbling her words along with facial droopiness on the right side as noted by the family.? During that time patient denies of having any nausea, chest pain, palpitation, dizziness, weakness or numbness in any of her arms or legs, bowel or bladder incontinence. In the ER patient was found to have NIH score of 2.? As patient was on Xarelto and they were not sure about exact previous value time decision was made not to give tPA. On examination patient had resolution of symptoms.? She was able to ambulate from chair to bed.? Able to have complete conversation without any slurring of speech.? As per family patient is back to her baseline. Patient was admitted under observation. Her hospital stay was unremarkable. She did well with physical therapy and Occupational Therapy. She had complete resolution of symptoms by next morning. Her blood pressure was found to be running on the higher side even on her home medications. HbA1c lipid panel checked. She has been discharged hemodynamically stable condition on oral Plavix, statin. She is advised to check her blood pressure daily at home and maintain a blood pressure diary and follow-up with her primary care provider. Physical Exam Narrative: General: No acute distress, AO x3, very pleasant HEENT: PERRLA, pupils bilaterally equal and reactive Chest: Normal vesicular breath sounds, no added sounds, equal good air entry bilaterally CVS: S1-S2 regular, no murmurs, no tachycardia, no gallops, no rubs Abdomen: Soft, nontender, no organomegaly, bowel sounds present Neuro: No focal deficits, no facial deformity, AO x3, power 5/5 on left side, 4 x 5 in right upper and lower limb, no slurring of speech Discharge Data Studies Completed and Pending Completed Studies During Hospitalization Category Date Time Status CT angio headneck* [id number] Stat Cat Scan 04/30/22 12:[address] head wo con* [id number] Stat Cat Scan 04/30/22 12:05 Completed Pending at discharge Category Date Time Status Urine Culture Stat Lab 04/30/22 14:07 Received CV. echo complete* [id number] Routine Ultrasound 05/01/22 06:00 Taken Radiology Impressions Head CT 04/30/22 12:05 IMPRESSION: 1. No evidence of acute large vessel infarct by noncontrast CT. 2. Lacunar infarcts within/adjacent to the basal ganglia, bilaterally, and right thalamus that appear new from 2017; however, they remain indeterminate in age. Consider MRI to further assess if clinically warranted. 3. Mild senescent changes as above. 4. No acute intracranial hemorrhage. Head/Neck CTA 04/30/22 12:30 IMPRESSION: No large vessel stenosis or occlusion. IMPRESSION: No stenosis or occlusion. REFERENCES: NASCET CRITERIA. The degree of internal carotid artery stenosis is based on NASCET criteria. Normal is no stenosis. Mild is less than 50% stenosis. Moderate is 50-69% stenosis. Severe is 70% to 99% stenosis. Total occlusion is no detectable patent lumen. Laboratory Results WBC 7.5 10^3/uL (4.0-10.0) 05/01/22 03:05 RBC 4.67 10^6/uL (4.1-5.3) 05/01/22 03:05 Hgb 13.7 g/dL (11.5-15.3) 05/01/22 03:05 Hct 43.2 % (37.0-47.0) 05/01/22 03:05 MCV 92.5 fl (81-99) 05/01/22 03:05 MCH 29.3 pg (28.0-34.0) 05/01/22 03:05 MCHC 31.7 g/dL (30.0-36.0) 05/01/22 03:05 RDW 13.4 % (12.1-15.1) 05/01/22 03:05 Plt Count 176 10^3/cmm (130-400) 05/01/22 03:05 MPV 11.8 fL (7.4-10.4) H 05/01/22 03:05 Neut % (Auto) 60.6 % 05/01/22 03:05 Lymph % (Auto) 30.1 % 05/01/22 03:05 [place] % (Auto) 7.6 % 05/01/22 03:05 Eos % (Auto) 1.1 % 05/01/22 03:05 Baso % (Auto) 0.3 % 05/01/22 03:05 Neut # (Auto) 4.57 10^3/uL (1.8-7.7) 05/01/22 03:05 Lymph # (Auto) 2.3 10^3/uL (0.8-4.8) 05/01/22 03:05 [place] # (Auto) 0.6 10^3/uL (0.2-0.9) 05/01/22 03:05 Eos # (Auto) 0.1 10^3/uL (0.0-0.8) 05/01/22 03:05 Baso # (Auto) 0.0 10^3/uL (0.0-0.1) 05/01/22 03:05 Nucleated RBC % (auto) 0 % 05/01/22 03:05 Nucleated RBCs # 0.0 /100WBC 05/01/22 03:05 PT 14.50 SECONDS (12.1-14.9) 04/30/22 12:39 INR 1.10 (0.8-1.2) 04/30/22 12:39 APTT 34.2 SECONDS (23.9-36.7) 04/30/22 12:39 Sodium 139 mmol/L (136-145) 05/01/22 03:05 Potassium 3.9 mmol/L (3.5-5.1) 05/01/22 03:05 Chloride 105 mmol/L (98-107) 05/01/22 03:05 Carbon Dioxide 26 mmol/L (22-29) 05/01/22 03:05 Anion Gap 11.9 (5-19) 05/01/22 03:05 BUN 12 mg/dL (8-23) 05/01/22 03:05 Creatinine 0.9 mg/dL (0.5-0.9) 05/01/22 03:05 GFR Calculation Not Reportable 05/01/22 03:05 Glucose 94 mg/dL (65-115) 05/01/22 03:05 POC Glucose 107 mg/dL (70-110) 04/30/22 12:29 Estimat Average Glucose 117 05/01/22 03:05 Hemoglobin A1c 5.7 % (4.0-6.0) 05/01/22 03:05 Calculated Osmolality 288 mOsm/kg (285-295) 05/01/22 03:05 Calcium 8.5 mg/dL (8.5-10.5) 05/01/22 03:05 Iron 141 ug/dL (37-145) 04/30/22 12:39 TIBC 301 mcg/dl 04/30/22 12:39 % Saturation 46.8 % (20-50) 04/30/22 12:39 Unsat Iron Binding 160 ug/dL (112-347) 04/30/22 12:39 Total Bilirubin 0.3 mg/dL (0.15-1.2) 05/01/22 03:05 AST 17 U/L (0-32) 05/01/22 03:05 ALT 7 U/L (0-33) 05/01/22 03:05 Alkaline Phosphatase 115 IU/L (35-105) H 05/01/22 03:05 Total Protein 6.2 g/dL (6.6-8.7) L 05/01/22 03:05 Albumin 3.3 g/dL (3.5-5.2) L 05/01/22 03:05 Globulin 2.9 g/dL (1.3-4.6) 05/01/22 03:05 Triglycerides 91 mg/dL (0-150) 05/01/22 03:05 Cholesterol 179 mg/dL (0-200) 05/01/22 03:05 LDL Cholesterol, Calc 115 mg/dL (50-129) 05/01/22 03:05 Total VLDL Cholesterol 18 mg/dL (0-30) 05/01/22 03:05 HDL Cholesterol 46 mg/dL (60-100) L 05/01/22 03:05 Cholesterol/HDL Ratio 3.89 mg/dL (0.0-4.40) 05/01/22 03:05 Urine Color Yellow (Yellow) 04/30/22 14:07 Urine Appearance Sl hazy (CLEAR) 04/30/22 14:07 Urine pH 6 (5-7) 04/30/22 14:07 Ur Specific [place] 1.010 (1.005-1.030) 04/30/22 14:07 Urine Protein 1+ (Negative) H 04/30/22 14:07 Urine Glucose (UA) Norm (Normal) 04/30/22 14:07 Urine Ketones Negative (Negative) 04/30/22 14:07 Urine Blood Neg (Negative) 04/30/22 14:07 Urine Nitrate Positive (Negative) H 04/30/22 14:07 Urine Bilirubin Neg (Negative) 04/30/22 14:07 Urine Urobilinogen Norm mg/dL (Negative) 04/30/22 14:07 Ur Leukocyte Esterase 2+ (Negative) H 04/30/22 14:07 Urine RBC None /hpf (0-2) 04/30/22 14:07 Urine WBC 80-100 /hpf (0-5) H 04/30/22 14:07 Ur Squamous Epith Cells 5-10 /hpf (0-5) H 04/30/22 14:07 Ur Transition Epith Cell 0-4 /hpf 04/30/22 14:07 Amorphous Sediment Not Reportable 04/30/22 14:07 Urine Bacteria 4+ /hpf (NONE) H 04/30/22 14:07 Urine Mucus 1+ /hpf 04/30/22 14:07 Urine Opiates Screen Negative ng/mL (Negative) 04/30/22 14:07 Ur Barbiturates Screen Negative ng/mL (Negative) 04/30/22 14:07 Ur Phencyclidine Scrn Negative ng/mL (Negative) 04/30/22 14:07 Ur Amphetamines Screen Negative ng/mL (Negative) 04/30/22 14:07 U Benzodiazepines Scrn Negative ng/mL (Negative) 04/30/22 14:07 Urine Cocaine Screen Negative ng/mL (Negative) 04/30/22 14:07 U Marijuana (THC) Screen Negative ng/mL (Negative) 04/30/22 14:07 Vitals Last Vital Signs Temp 97.8 F 05/01/22 12:00 Pulse 61 05/01/22 12:00 Resp 16 05/01/22 12:00 BP 162/72 05/01/22 12:00 Pulse Ox 96 05/01/22 12:00 Discharge Plan Discharge Patient Disposition: Home Condition: Stable Prescriptions: New atorvastatin 40 mg Tablet 40 mg PO BEDTIME Qty: 30 0RF clopidogrel 75 mg Tablet 75 mg PO DAILY Qty: 30 0RF Continued albuterol sulfate [Ventolin HFA] 90 mcg/actuation HFA aerosol inhaler 1 inh inhalation QID PRN (Reason: shortness of breath or wheezing) Qty: 8.5 1RF tramadol 50 mg tablet 100 mg PO Q8H PRN (Reason: pain) 30 Days Qty: 180 4RF pantoprazole 40 mg tablet,delayed release (DR/EC) See Rx Instructions .ROUTE .COMPLEX Qty: 90 0RF Dose Instruction: TAKE 1 TABLET BY MOUTH EVERY DAY Rx Instructions: TAKE 1 TABLET BY MOUTH EVERY DAY lisinopril 20 mg tablet 40 mg PO BID Qty: 120 5RF carvedilol 25 mg tablet 25 mg PO BID Qty: 180 3RF Rx Instructions: must administer with a meal/food Start at 12.5mg twice a day, if BP remains over 200 increase to 25mg twice a day. Xarelto 20 mg tablet See Rx Instructions .ROUTE .COMPLEX Qty: 30 5RF Dose Instruction: TAKE 1 TABLET BY MOUTH EVERY DAY TAKE WITH EVENING MEAL Rx Instructions: TAKE 1 TABLET BY MOUTH EVERY DAY TAKE WITH EVENING MEAL hydralazine 100 mg tablet 100 mg PO TID Qty: 90 5RF Discharge Orders: Discharge Order (Routine); Ordered 05/01/22 Ordered By: Ran Mata Referrals: Mayra Espino MD [Physician] - 2 weeks (TIA) Discharge Diet: As Directed and Cardiac Discharge Activity: Resume usual activity and Increase activity as tolerated Patient Instructions: Opioid Safety Activity Restrictions/Additional Instructions: Please follow-up with neurology within next 2 weeks. Please check your blood pressure daily at home and maintain a blood pressure diary and follow-up with a primary care provider within the next 2 weeks for further adjustment of antihypertensives. Discharge Attestations Time Spent in Discharge Care*: greater than 30 min Specific Discharge Activities: educating patient, educating and/or supporting family/caregiver, discussing with pcp/other providers, discussing with director of casework/social workers/dc planners, documenting/other paperwork and evaluating patient/reviewing data Status at Discharge: Cognitive status at discharge: cognitively intact , Behavioral status at discharge: cooperative , Functional status at discharge: independent ambulation , Overall status at discharge: patient is back to baseline Quality Metrics Clinical Quality Measures [ No reported AMI, CVA or VTE this stay] Coding Level of Care Code Acute Chg FW DC note Diagnoses TIA (transient ischemic attack) G45.9 Uncontrolled hypertension I10 Pulmonary embolism on long-term anticoagulation therapy I26.99; Z79.01
[2022-05-01 14:48] VITALS: BP 162/72; PULSE 61; RESP 16; TEMP 36.6; O2SAT 96
== END 2022-05-01 14:40 | disposition home or self-care (01) ==
LOC: ER 12:41 → MEDSURG 15:10
PROVIDERS: Admitting Provider Student in an Organized Health Care Education/Training Program; Emergency Provider Family Medicine; Visit Provider Student in an Organized Health Care Education/Training Program
DX: G45.9 Transient cerebral ischemic attack, unspecified (principal); I10 Essential (primary) hypertension; R29.702 NIHSS score 2; I26.99 Other pulmonary embolism without acute cor pulmonale; Z79.01 Long term (current) use of anticoagulants; E78.5 Hyperlipidemia, unspecified; Z86.711 Personal history of pulmonary embolism; Z86.16 Personal history of COVID-19; E78.2 Mixed hyperlipidemia
CPT/HCPCS: 36415; 36416; 70450; 70496; 70498; 80053; 80061; 80306; 81001; 82962; 83036; 83540; 83550; 85025; 85610; 85730; 87077; 87086; 87186; 92523; 93005; 93306; 94664; 97165; 99285; G0378; Q9967

== ENCOUNTER → 2022-05-05 10:57 | Outpatient (BNVA) | payer MEDICARE, SELFPAY | PROVIDERS: PCP Family Medicine; Referring Provider Family Medicine; Visit Provider Specialist | DX: R51.9 Headache, unspecified (principal); Z86.73 Personal history of transient ischemic attack (TIA), and cerebral infarction without residual deficits; F17.210 Nicotine dependence, cigarettes, uncomplicated | CPT/HCPCS: 99204; 99205 ==

== ENCOUNTER → 2022-06-08 11:46 | Outpatient (BNVA) | payer MEDICARE, SELFPAY | PROVIDERS: PCP Family Medicine; Visit Provider Family Medicine | DX: N39.0 Urinary tract infection, site not specified (principal) | CPT/HCPCS: 81003; 87077; 87086; 87184 ==

== ENCOUNTER → 2022-06-28 14:07 | Outpatient (BNVA) | payer MEDICARE, SELFPAY | PROVIDERS: PCP Family Medicine; Visit Provider Surgery | DX: R13.10 Dysphagia, unspecified (principal) | CPT/HCPCS: 99203 ==

== ENCOUNTER 2022-07-20 07:43 | Day surgery (SDC) | payer MEDICARE, SELFPAY ==
[2022-07-18 11:10] VITALS: BMI 28.8
[2022-07-20 08:06] VITALS: BP 204/87; PULSE 53; RESP 18; TEMP 36.6; O2SAT 98
[2022-07-20] MEDS: sodium chloride 0.9% 1,000 ML 30 ML IV (08:11)
--- NOTE | 2022-07-20 08:27 | W.PM.OPSUD ---
Surgery/Procedure H&P Update DATE OF PROCEDURE: July 20, 2022 DATE H&P PERFORMED: 06/28/22 PLANNED PROCEDURE: Operation Date: 07/20/22 09:30 Proposed Procedures p EGD Dilation W/ Balloon [id number],R13.10(Not Applicable) - Bradley Reid DO
--- NOTE | 2022-07-20 10:02 | ANES.PREANE2 ---
Pre-Anesthetic Assessment Height/Weight: Height 1.73 m Weight 86.183 kg Temp Pulse Resp BP Pulse Ox O2 Del Method 98 F 53 L 18 204/87 98 07/20/22 08:06 07/20/22 08:06 07/20/22 08:06 07/20/22 08:06 07/20/22 08:06 07/20/22 08:06 Operation Date: 07/20/22 09:30 Proposed Procedures p EGD Dilation W/ Balloon [id number],R13.10(Not Applicable) - Bradley Reid DO Familial anesthetic complications: None Was Beta [place] taken within 24 hours: Yes Was Clonidine taken within 24 hours: N/A Last intake: Intake Last Liquid Date 07/19/22 Last Liquid Time 18:00 Last Solid Date 07/19/22 Last Solid Time 18:00 Social Tobacco .5 pack(s) per day 55 pack years Exam alert, oriented x 3, clear to auscultation bilaterally and regular rate & rhythm Airway Submandibular: within normal limits Cervical ROM: within normal limits Mallampati: Class II Dentition: false Comments: Comments: Upper and lower History/ROS No significant history except as noted and No significant complaints Pulmonary Shortness of Breath SOB with exercise CV/HEM Hypertension PE a few years ago. No complications since. None reported Hepatic None reported GI None reported Metabolic None reported Musc/skel Lower Back Pain and Osteoarthritis/DJD Neuropsych Transient Ischemic Attack TIA a few months ago. Has seen PCP since and has been cleared. Anesthetic Plan ASA status: 3 Anesthesia: Anesthesia Evaluation, General and MAC Risk of > 500 ml blood loss (7ml/kg in children): No Medications/Allergies Home Medications Medication Instructions Recorded Confirmed Last Taken Type albuterol sulfate 90 mcg/actuation 1 inh inhalation QID PRN shortness 11/11/21 07/18/22 Unknown Rx aerosol inhaler (Ventolin HFA) of breath or wheezing #8.5 grams pantoprazole 40 mg tablet,delayed See Rx Instructions .Route 12/28/21 07/18/22 07/19/22 Rx release .COMPLEX #90 tabs lisinopril 20 mg tablet 40 mg PO BID #120 tabs 01/03/22 07/18/22 07/19/22 Rx carvedilol 25 mg tablet 25 mg PO BID #180 tabs 01/31/22 07/18/22 07/19/22 Rx hydralazine 100 mg tablet 100 mg PO TID #90 tabs 03/02/22 07/18/22 07/19/22 Rx tramadol 50 mg tablet 100 mg PO Q8H PRN pain 30 days 05/26/22 07/18/22 07/19/22 Rx #180 tabs rivaroxaban 20 mg tablet (Xarelto) See Rx Instructions .Route 06/07/22 07/18/22 07/19/22 Rx .COMPLEX #30 tabs pantoprazole 40 mg tablet,delayed 40 mg PO BID 6 weeks #84 tabs 07/20/22 Unknown Rx release (Protonix) Allergies Allergy/AdvReac Type Severity Reaction Status Date / Time amlodipine Allergy ANGIOEDEMA Verified 07/18/22 10:55 hydrochlorothiazide Allergy HIVES Verified 07/18/22 10:55 hydroxychloroquine Allergy LEG CRAMPS Verified 07/18/22 10:55 [From Plaquenil] levofloxacin [From Levaquin] Allergy DIFFICULTY Verified 07/18/22 10:55 BREATHING Penicillins Allergy ANAPHYLAXIS Verified 07/18/22 10:55 Sulfa (Sulfonamide Allergy RASH Verified 07/18/22 10:55 Antibiotics) Current Medications Generic Name Dose Route Start Last Admin Trade Name Freq PRN Reason Stop Dose Admin Sodium Chloride 1,000 mls @ 30 mls/hr 07/20/22 08:00 07/20/22 08:11 Sodium Chloride 0.9% IV 07/21/22 07:59 30 mls/hr .Q24H DARWIN Administration PFSH Anesthesia Medical History Cervical stenosis of spine Chronic joint pain Chronic obstructive pulmonary disease, unspecified Demyelinating disease Gastro-esophageal reflux disease without esophagitis Left carotid stenosis Mixed hyperlipidemia Personal history of transient ischemic attack (TIA), and cerebral infarction without residual deficits Pulmonary embolism on long-term anticoagulation therapy Renal function test abnormal Restless legs syndrome Spinal stenosis, lumbar region without neurogenic claudication Surgical History H/O: hysterectomy [place] of esophagogastroduodenoscopy (EGD) with Dr. [place]rs [place] [facility] [place] bilateral cataract extraction S/P cervical spinal fusion S/P cholecystectomy S/P tonsillectomy and adenoidectomy Family History Other Heart disease Social History Smoking and tobacco status: current every day smoker cigarettes Packs smoked per day: 0.25 Alcohol intake: never Household members: spouse Marital status: Data Anesthesia Cardiac Studies: Echocardiogram 05/01/22
[2022-07-20 10:43] VITALS: BP 191/90; PULSE 62; RESP 18; TEMP 36.5; O2SAT 93
[2022-07-20 10:52] VITALS: BP 197/82; PULSE 60; RESP 18; TEMP 36.2; O2SAT 94
--- NOTE | 2022-07-20 13:07 | ANE.PACU2 ---
Inpatient post-anesthesia follow up: Airway intact: Yes Vital signs: Temperature 97.2 F Pulse Rate 60 Respiratory Rate 18 Blood Pressure 197/82 Pulse Oximetry 94 Oxygen Delivery Me thod Room Air Oxygen Flow Rate Fraction of Inspir ed Oxygen Hydration adequate: Yes Nausea and vomiting: No Pain level: 1 Mental status: Baseline
== END 2022-07-20 11:08 | disposition home or self-care (01) ==
PROVIDERS: PCP Family Medicine; Visit Provider Surgery
DX: K29.50 Unspecified chronic gastritis without bleeding (principal); K21.9 Gastro-esophageal reflux disease without esophagitis; J44.9 Chronic obstructive pulmonary disease, unspecified; E78.2 Mixed hyperlipidemia; Z86.711 Personal history of pulmonary embolism; Z86.73 Personal history of transient ischemic attack (TIA), and cerebral infarction without residual deficits; F17.210 Nicotine dependence, cigarettes, uncomplicated; Z79.01 Long term (current) use of anticoagulants; Z88.0 Allergy status to penicillin; Z88.2 Allergy status to sulfonamides
CPT/HCPCS: 43239; 43249; 88305; 88342; J2704; J7030

== ENCOUNTER → 2022-08-05 11:16 | Outpatient (BNVA) | payer MEDICARE, SELFPAY | PROVIDERS: PCP Family Medicine; Visit Provider Surgery | DX: Z09 Encounter for follow-up examination after completed treatment for conditions other than malignant neoplasm (principal); K29.70 Gastritis, unspecified, without bleeding | CPT/HCPCS: 99212 ==

== ENCOUNTER → 2022-08-20 18:31 | Outpatient (BNVA) | payer MEDICARE, SELFPAY | PROVIDERS: PCP Family Medicine; Visit Provider Nurse Practitioner | DX: N39.0 Urinary tract infection, site not specified (principal) | CPT/HCPCS: 81000 ==

== ENCOUNTER → 2022-09-01 10:00 | Outpatient (BNVA) | payer MEDICARE, SELFPAY | PROVIDERS: PCP Family Medicine; Visit Provider Family Medicine | DX: N39.0 Urinary tract infection, site not specified (principal); R30.0 Dysuria | CPT/HCPCS: 81000; 87077; 87086; 87184 ==

== ENCOUNTER → 2022-09-28 13:51 | Outpatient (BNVA) | payer MEDICARE, SELFPAY | PROVIDERS: PCP Family Medicine; Visit Provider Emergency Medicine | DX: R05.9 Cough, unspecified (principal); R52 Pain, unspecified; J20.8 Acute bronchitis due to other specified organisms; B96.89 Other specified bacterial agents as the cause of diseases classified elsewhere | CPT/HCPCS: 87400 ==

== ENCOUNTER → 2022-10-25 11:31 | Outpatient (BNVA) | payer MEDICARE, SELFPAY | PROVIDERS: PCP Family Medicine; Visit Provider Nurse Practitioner Family | DX: M79.643 Pain in unspecified hand (principal) | CPT/HCPCS: 73130 ==

== ENCOUNTER → 2022-12-02 12:10 | Outpatient (BNVA) | payer MEDICARE, SELFPAY | PROVIDERS: PCP Family Medicine; Visit Provider Registered Nurse Neonatal Intensive Care | DX: N39.0 Urinary tract infection, site not specified (principal) | CPT/HCPCS: 81000; 87086; 87184 ==

== ENCOUNTER → 2022-12-05 11:35 | Outpatient (BNVA) | payer MEDICARE, SELFPAY | PROVIDERS: PCP Family Medicine; Visit Provider Registered Nurse Neonatal Intensive Care | DX: M79.643 Pain in unspecified hand (principal) | CPT/HCPCS: 73130 ==

== ENCOUNTER → 2023-02-01 14:53 | Outpatient (BNVA) | payer MEDICARE, SELFPAY | PROVIDERS: PCP Family Medicine; Visit Provider Family Medicine | DX: R30.0 Dysuria (principal); N39.0 Urinary tract infection, site not specified | CPT/HCPCS: 81000; 87086 ==

== ENCOUNTER → 2023-04-18 18:42 | Outpatient (BNVA) | payer MEDICARE, SELFPAY | PROVIDERS: PCP Family Medicine; Visit Provider Nurse Practitioner | DX: R06.00 Dyspnea, unspecified (principal) | CPT/HCPCS: 71046 ==

== ENCOUNTER → 2023-05-02 10:41 | Outpatient (BNVA) | payer MEDICARE, SELFPAY | PROVIDERS: PCP Family Medicine; Visit Provider Family Medicine | DX: R30.0 Dysuria (principal); N39.0 Urinary tract infection, site not specified; R55 Syncope and collapse; I10 Essential (primary) hypertension; E83.52 Hypercalcemia | CPT/HCPCS: 80053; 82306; 82607; 82746; 84443; 85025 ==

== ENCOUNTER → 2023-05-03 13:53 | Outpatient (BNVA) | payer MEDICARE, SELFPAY | PROVIDERS: PCP Family Medicine; Visit Provider Family Medicine | DX: N39.0 Urinary tract infection, site not specified (principal); R30.0 Dysuria; R55 Syncope and collapse | CPT/HCPCS: 81003; 87086 ==

== ENCOUNTER 2023-05-31 20:08 | Emergency (ER) | payer MEDICARE, SELFPAY ==
[2023-05-31 20:11] VITALS: BP 160/83; PULSE 86; RESP 18; TEMP 36.8; O2SAT 93; BMI 28.1
--- NOTE | 2023-05-31 21:21 | XRR_ITS ---
PROCEDURE INFORMATION: Exam: XR Left Knee Exam date and time: 05/31/2023 9:24 PM Age: 77 years old Clinical indication: Pain; Knee; Left; Additional info: Ground-level fall-left knee pain TECHNIQUE: Imaging protocol: Radiologic exam of the left knee. Views: 3 views. COMPARISON: No relevant prior studies available. FINDINGS: Bones/joints: Moderate to severe medial knee compartment primary osteoarthritis. Moderate patellofemoral compartment primary osteoarthritis. Small joint effusion. Soft tissues: Normal. XR/XR knee LT 3V* [id number] IMPRESSION: 1. Moderate to severe medial knee compartment primary osteoarthritis. 2. Moderate patellofemoral compartment primary osteoarthritis. 3. Small joint effusion.
--- NOTE | 2023-05-31 21:21 | XRR_ITS ---
PROCEDURE INFORMATION: Exam: XR Right Hip Exam date and time: 05/31/2023 9:24 PM Age: 77 years old Clinical indication: Hip pain; Right hip; Additional info: Ground level fall-hip pain TECHNIQUE: Imaging protocol: Radiologic exam of the right hip. Views: 1 view hip with pelvis when performed. COMPARISON: US renal BI* [id number] 12/18/2020 10:19 AM FINDINGS: Bones/joints: Moderate to severe multilevel spine degenerative changes including degenerative disc disease, spondylosis and facet degenerative changes. Soft tissues: Unremarkable. Other findings: No acute findings. XR/XR hip RT 2-3V wo/w pel* [id number] IMPRESSION: 1. No acute findings. 2. If pain persists, CT may be helpful to rule out occult pathology if clinically indicated.
--- NOTE | 2023-05-31 21:43 | W.ED.FALL ---
HPI - Fall General: Chief Complaint: Fall Stated Complaint: fall yesterday right hip, left knee pain Time Seen by Provider: 05/31/23 21:43 History of Present Illness: Ms. Valerio is a 77-year-old lady presenting the emergency department for continued hip and leg pain secondary to fall. She reports tripping and falling down 4 steps yesterday. She did hit her head but denies loss of consciousness. Since that time has had continued pain with ambulation and palpation. Moderate intensity. No other specific changes in health, exacerbating, or alleviating factors identified. Onset (ago): day(s) Place fall occurred: home Loss of consciousness: None Prolonged down time: no Symptoms prior to fall: none Severity: moderate Review of Systems General: Reports: 10 or more systems reviewed and unremarkable except in HPI and below PFSH ED PFSH: Medical History Cervical stenosis of spine Chronic joint pain Chronic obstructive pulmonary disease, unspecified Demyelinating disease Gastro-esophageal reflux disease without esophagitis Left carotid stenosis Mixed hyperlipidemia Personal history of transient ischemic attack (TIA), and cerebral infarction without residual deficits Pulmonary embolism on long-term anticoagulation therapy Renal function test abnormal Restless legs syndrome Spinal stenosis, lumbar region without neurogenic claudication Surgical History H/O: hysterectomy History of esophagogastroduodenoscopy (EGD) with Dr. Wilburn 10 yrs ago at [facility] [place] S/P bilateral cataract extraction S/P cervical spinal fusion S/P cholecystectomy S/P tonsillectomy and adenoidectomy Family History Other Heart disease Social History Smoking and tobacco status: current every day smoker cigarettes Packs smoked per day: 0.25 Alcohol intake: never Substance/Drug Use: never Household members: spouse Marital status: Female Reproductive History: Spontaneous abortions: No Physical Exam Const: COMMON NORMALS: alert GENERAL APPEARANCE: cooperative and well developed HENMT: COMMON NORMALS: normocephalic and atraumatic HEAD & SCALP: normocephalic and atraumatic THROAT: posterior oropharynx normal OTHER: No thakkar signs or raccoon eyes. No hemotympanum. No otorrhea or rhinorrhea. Jaw alignment normal. Dentition baseline. No obvious bony step-offs. No septal hematoma. No evidence of ocular entrapment. Eye: COMMON NORMALS: conjunctivae normal CONJUNCTIVA: Yes conjunctivae normal SCLERA: sclerae normal Neck/C-Spine: COMMON NORMALS: supple GENERAL: Yes trachea midline Resp: COMMON NORMALS: clear to auscultation bilaterally EFFORT & INSPECTION: Yes able to speak in complete sentences AUSCULTATION: clear to auscultation bilaterally Cardio: COMMON NORMALS: regular rate and regular rhythm RATE: regular rate RHYTHM: regular rhythm GI: COMMON NORMALS: Soft to palpation PALPATION: Yes Soft to palpation and No Tenderness to palpation present (GI) PERCUSSION: normal to percussion Extremity: NARRATIVE EXTREMITY EXAM: Distal CMS intact. Right hip and left ankle patient and pain with range of motion. Extensor mechanism intact. No deformities. GENERAL: Yes normal exam except as noted and No edema Neuro: COMMON NORMALS: moves all extremities SENSORIUM/ORIENTATION: Yes alert and No Orientation impaired Psych: COMMON NORMALS: mental status grossly normal and Normal thought process present THOUGHT PROCESS: Normal thought process present Course Vital Signs: Vital signs: Vital Signs Temperature 98.2 F 05/31/23 20:11 Pulse Rate 88 06/01/23 00:36 Respiratory Rate 18 06/01/23 00:36 Blood Pressure 166/97 06/01/23 00:36 Pulse Oximetry 97 06/01/23 00:36 Oxygen Delivery Me thod Room Air 05/31/23 23:13 MDM - Fall Medical Decision Making 77-year-old lady presenting with pain related to fall. Head to toe exam performed. Nontoxic. Labs with minimal leukocytosis, no significant electrolyte arrangement. X-rays negative however patient has significant degenerative changes and given degree of tenderness on palpation CT is warranted. CT negative for fracture. Patient treated with analgesia and able to ambulate. The results of ED evaluation were discussed with the patient including prescriptions and/or symptomatic cares (if applicable) including appropriate and responsible use, followup plan, and return precautions. The patient verbalized understanding and felt safe for discharge. Medical Records I reviewed the patient's medical records. Lab Data I reviewed the patient's lab results. 05/31/23 22:00 05/31/23 22:[address] 05/31/23 22:25 IMPRESSION: 1. Moderate to severe L4-L5 central spinal stenosis. 2. No acute posttraumatic findings. Laboratory Results WBC 10.9 10^3/uL (4.0-10.0) H 05/31/23 22:00 RBC 4.69 10^6/uL (4.1-5.3) 05/31/23 22:00 Hgb 14.4 g/dL (11.5-15.3) 05/31/23 22:00 Hct 43.6 % (37.0-47.0) 05/31/23 22:00 MCV 93.0 fl (81-99) 05/31/23 22:00 MCH 30.7 pg (28.0-34.0) 05/31/23 22:00 MCHC 33.0 g/dL (30.0-36.0) 05/31/23 22:00 RDW 13.6 % (12.1-15.1) 05/31/23 22:00 Plt Count 225 10^3/cmm (130-400) 05/31/23 22:00 MPV 11.5 fL (7.4-10.4) H 05/31/23 22:00 Neut % (Auto) 69.7 % 05/31/23 22:00 Lymph % (Auto) 23.0 % 05/31/23 22:00 Robertson % (Auto) 6.1 % 05/31/23 22:00 Eos % (Auto) 0.5 % 05/31/23 22:00 Baso % (Auto) 0.3 % 05/31/23 22:00 Neut # (Auto) 7.59 10^3/uL (1.8-7.7) 05/31/23 22:00 Lymph # (Auto) 2.5 10^3/uL (0.8-4.8) 05/31/23 22:00 Robertson # (Auto) 0.7 10^3/uL (0.2-0.9) 05/31/23 22:00 Eos # (Auto) 0.1 10^3/uL (0.0-0.8) 05/31/23 22:00 Baso # (Auto) 0.0 10^3/uL (0.0-0.1) 05/31/23 22:00 Nucleated RBC % (auto) 0 % 05/31/23 22:00 Nucleated RBCs # 0.0 /100WBC 05/31/23 22:00 Sodium 141 mmol/L (136-145) 05/31/23 22:00 Potassium 3.5 mmol/L (3.5-5.1) 05/31/23 22:00 Chloride 105 mmol/L (98-107) 05/31/23 22:00 Carbon Dioxide 25 mmol/L (22-29) 05/31/23 22:00 Anion Gap 14.5 (5-19) 05/31/23 22:00 BUN 10 mg/dL (8-23) 05/31/23 22:00 Creatinine 0.9 mg/dL (0.5-0.9) 05/31/23 22:00 GFR Calculation Not Reportable 05/31/23 22:00 Glucose 149 mg/dL (65-115) H 05/31/23 22:00 Calculated Osmolality 294 mOsm/kg (285-295) 05/31/23 22:00 Calcium 8.5 mg/dL (8.5-10.5) 05/31/23 22:00 Discharge Plan Discharge Patient Disposition: Home Clinical Impression: Fall, Hip pain, Knee pain Condition: Stable Prescriptions: No Action pantoprazole 40 mg tablet,delayed release (DR/EC) See Rx Instructions .ROUTE .COMPLEX Qty: 180 3RF Hold Instructions: Resume on 08/31/22. Dose Instruction: TAKE 1 TABLET BY MOUTH EVERY DAY Rx Instructions: TAKE 1 TABLET BY MOUTH TWO TIMES A DAY. lisinopril 20 mg tablet See Rx Instructions .ROUTE .COMPLEX Qty: 120 3RF Dose Instruction: TAKE TWO TABLETS BY MOUTH TWICE DAILY Rx Instructions: TAKE ONE TABLET BY MOUTH TWICE DAILY. albuterol sulfate [Ventolin HFA] 90 mcg/actuation HFA aerosol inhaler 2 puff inhalation Q4H PRN (Reason: shortness of breath or wheezing) Qty: 8.5 0RF Xarelto 20 mg tablet See Rx Instructions .ROUTE .COMPLEX Qty: 30 5RF Hold Instructions: Resume on 07/23/22. Dose Instruction: TAKE 1 TABLET BY MOUTH EVERY DAY TAKE WITH EVENING MEAL Rx Instructions: TAKE 1 TABLET BY MOUTH EVERY DAY TAKE WITH EVENING MEAL sucralfate 1 gram tablet 1 g PO BID 28 Days Qty: 56 0RF tramadol 50 mg tablet 100 mg PO Q8H PRN (Reason: pain) 30 Days Qty: 180 4RF Rx Instructions: Refill in Dr. Reyna's absence carvedilol 25 mg tablet 25 mg PO BID Qty: 180 3RF hydralazine 100 mg tablet See Rx Instructions .ROUTE .COMPLEX Qty: 90 2RF Dose Instruction: TAKE 1 TABLET BY MOUTH THREE TIMES DAILY Rx Instructions: TAKE 1 TABLET BY MOUTH THREE TIMES DAILY prenat.vits,beronica,can-szdm-xgeux Tablet 1 tab PO DAILY Qty: 90 3RF cholecalciferol (vitamin D3) 1,250 mcg (50,000 unit) capsule 1,250 mcg PO .WEEKLY Qty: 12 3RF Rx Instructions: TAKE ONE CAPSULE BY MOUTH, ONE TIME A WEEK. Discharge Orders: Discharge ED (Routine); Ordered 06/01/23 Ordered By: Vic Partida Referrals: William Reyna, [Primary Care Provider] - Discharge Diet: Usual diet Discharge Activity: Increase activity as tolerated Patient Instructions: Fall Prevention for Older Adults (ED), Knee Pain (ED), Hip Pain (ED) Activity Restrictions/Additional Instructions: Thank you for visiting the emergency department. You were seen evaluated for hip pain and knee pain after fall. The most likely cause of your symptoms is soft tissue injury and bruising. No broken bones were identified. I will prescribe Toradol as discussed, do not take this with other NSAIDs such as ibuprofen Aleve or aspirin. You may take acetaminophen. Follow-up with your primary care provider. Return for uncontrolled symptoms or anything else that you are concerned about and feel needs emergency department evaluation. Coding Level of Care Code ED Prosthetic Assistant for Fredis Vick
[2023-05-31 21:52] VITALS: BP 164/109; PULSE 85; RESP 18; O2SAT 95
[2023-05-31 22:20] LABS: Basophils % 0.3 %; Eosinophils # 0.1 10^3/uL (0.0-0.8); Eosinophils % 0.5 %; Hematocrit 43.6 % (37.0-47.0); Hemoglobin 14.4 g/dL (11.5-15.3); Lymphocytes # 2.5 10^3/uL (0.8-4.8); Mean Corpuscular Hemoglobin 30.7 pg (28.0-34.0); Mean Platelet Volume 11.5 fL (7.4-10.4); Monocytes # 0.7 10^3/uL (0.2-0.9); Monocytes % 6.1 %; Neutrophils # 7.59 10^3/uL (1.8-7.7); Neutrophils % 69.7 %; Nucleated Red Blood Cells % 0 %; Platelet Count 225 10^3/cmm (130-400); Red Blood Count 4.69 10^6/uL (4.1-5.3); Red Cell Distribution Width 13.6 % (12.1-15.1); White Blood Count 10.9 10^3/uL (4.0-10.0)
--- NOTE | 2023-05-31 22:25 | CTR_ITS ---
PROCEDURE INFORMATION: Exam: CT Pelvis Without Contrast; Skeletal Exam date and time: 05/31/2023 10:34 PM Age: 77 years old Clinical indication: Injury or trauma; Fall; Blunt trauma (contusions or hematomas); Right; Hip and pelvic region; Additional info: R lateral/posterior pain post fall, pain with ambulation TECHNIQUE: Imaging protocol: Computed tomography of the pelvis without contrast. Exam focused on the skeleton. Radiation optimization: All CT scans at this facility use at least one of these dose optimization techniques: automated exposure control; mA and/or kV adjustment per patient size (includes targeted exams where dose is matched to clinical indication); or iterative reconstruction. REPORTING DATA: Count of CT and Cardiac NM exams in prior 12 months: This patient has received 0 known CTs and 0 known cardiac nuclear medicine studies in the 12 months prior to the current study. COMPARISON: CR XR hip RT 2-3V wo/w pel* [id number] 05/31/2023 9:24 PM RADIATION DOSE METRICS: Total DLP (mGy-cm): 485.72 FINDINGS: Reproductive: Status post hysterectomy. Vasculature: Calcification of the abdominal aorta and/or iliac arteries consistent with atherosclerotic vessel disease. Bones/joints: Moderate multilevel spine degenerative changes including degenerative disc disease, spondylosis and facet degenerative changes. Moderate to severe L4-L5 central spinal stenosis. Moderate to severe multilevel spine degenerative changes including degenerative disc disease, spondylosis and facet degenerative changes. Soft tissues: Unremarkable. CT/CT pelvis wo con [id number] IMPRESSION: 1. Moderate to severe L4-L5 central spinal stenosis. 2. No acute posttraumatic findings.
[2023-05-31] MEDS: ketorolac 30 mg/mL INJ 15 MG IVP (22:28)
[2023-05-31 22:29] LABS: Anion Gap 14.5 (5-19); Blood Urea Nitrogen 10 mg/dL (8-23); Calcium 8.5 mg/dL (8.5-10.5); Carbon Dioxide 25 mmol/L (22-29); Chloride 105 mmol/L (98-107); Glucose 149 mg/dL (65-115); Osmolality Calculated 294 mOsm/kg (285-295); Potassium 3.5 mmol/L (3.5-5.1); Sodium 141 mmol/L (136-145)
[2023-05-31 23:13] VITALS: BP 155/74; PULSE 89; RESP 16; O2SAT 95
[2023-06-01 00:36] VITALS: BP 166/97; PULSE 88; RESP 18; O2SAT 97
== END 2023-06-01 00:38 | disposition home or self-care (01) ==
PROVIDERS: Emergency Provider Emergency Medicine; PCP Family Medicine
DX: M25.562 Pain in left knee (principal); M25.551 Pain in right hip
CPT/HCPCS: 72192; 73502; 73562; 80048; 85025; 96374; 99285; J1885

== ENCOUNTER → 2023-06-21 15:20 | Outpatient (BNVA) | payer MEDICARE, SELFPAY | PROVIDERS: PCP Family Medicine; Visit Provider Specialist | DX: G62.89 Other specified polyneuropathies; G82.20 Paraplegia, unspecified; Z91.81 History of falling | CPT/HCPCS: 99215 ==

== ENCOUNTER 2023-07-20 12:19 | Outpatient (CLI) | payer MEDICARE, SELFPAY ==
--- NOTE | 2023-07-20 12:30 | XR_ITS ---
WS: [email or web address] EXAMINATION: XR abdomen 3V [id number] REASON FOR EXAM: constipation COMPARISON: None available. ORDER DATE: 07/20/2023 1:01 PM FINDINGS: There is no acute pulmonary infiltrates or pleural effusions. There is atherosclerotic aortic change. Degenerative changes and mild scoliosis are present in the thoracolumbar spine. There is a nonspecific colonic gas pattern with scattered fecal content and gas. There is no sign of significant small bowel dilation. No pathologic abdominal calcification is seen. Prior cholecystectomy. IMPRESSION: No acute thoracal abdominal change
== END 2023-07-20 12:20 | disposition home or self-care (01) ==
PROVIDERS: PCP Family Medicine; Visit Provider Nurse Practitioner
DX: K59.09 Other constipation (principal)
CPT/HCPCS: 74021

== ENCOUNTER 2023-07-25 09:22 | Outpatient (CLI) | payer MEDICARE, SELFPAY ==
--- NOTE | 2023-07-25 09:30 | MR_ITS ---
WS: [email or web address] MRI CERVICAL SPINE NONCONTRAST TECHNIQUE: Sagittal T1, T2 and STIR imaging. Axial T2, gradient, and fiesta imaging. CLINICAL INFORMATION: G80.1 - Spastic diplegic cerebral palsy COMPARISON: CT 2017 FINDINGS: Moderate to severe central canal stenosis with impingement on the thoracic cord at T2-3 with a small central protrusion. Small amount of signal in the thoracic cord at this level. Additional moderate ce ntral canal stenosis at T1-2. This is progressed since 2017. Prior postoperative changes ACDF C4-C6. Posterior element fusion C5-C7. Endplate degenerative changes at T2-3 with edema. Small amount of edema in the paravertebral and post erior paravertebral soft tissues may be inflammatory or can be seen with instability. C2-C3: Mild facet arthropathy. Mild LEFT bony foraminal narrowing. C3-C4: Disc osteophyte protrusion. Mild central canal stenosis. Moderate bilateral bony foraminal klever rowing with moderate facet arthropathy. C4-C5: Anterior fusion. Endplate bony ridging. Mild LEFT greater than RIGHT bony foraminal narrowing. Spinal canal is patent. C5-C6: Laminectomy defects. Mild bilateral bony foraminal narrowing. Spinal canal is patent. C6-C7: Anterior fusion. Laminectomy defects. Mild bilateral foraminal narrowing. C7-T1: Prior postoperative changes dorsal fusion. Moderate LEFT and mild RIGHT bony foraminal narrowi ng. Spinal canal is patent. T1-T2: Moderate central canal stenosis with slight indentation on the thoracic cord. Slight anterolis thesis. Moderate to severe bilateral bony foraminal narrowing. Visualized brain stem structures: Normal. Prevertebral soft tissues: Normal. Small vessel changes partially visualized in the zuleyka. IMPRESSION: 1. Moderate to severe central canal stenosis T2-3 with grade 1 anterolisthesis and central disc prot rusion. Indentation on the thoracic cord with a small amount of signal abnormality in the cord at thi s level. 2. Moderate central canal stenosis T1-2. 3. Mild central canal stenosis C3-4. 4. Prior postoperative changes ACDF C4-C6 with posterior element fusion and laminectomies C5-C7. 5. Multilevel bony foraminal narrowing described above.
--- NOTE | 2023-07-25 10:15 | MR_ITS ---
WS: [email or web address] MRI THORACIC SPINE WITHOUT CONTRAST TECHNIQUE: Sagittal T1, T2 and STIR imaging. Axial T2 imaging. Noncontrast imaging obtained. CLINICAL INFORMATION: G80.1 - Spastic diplegic cerebral palsy COMPARISON: None. FINDINGS: Mild thoracic curve. Mild thoracic kyphosis. No acute appearing compression fractures. Endplate degen erative edema at T2-3 with central disc protrusion. Indentation on the thoracic cord with moderate to severe central canal stenosis. Small amount of signal abnormality in the thoracic cord at this level . Moderate central canal stenosis at T1-2 with grade 1 anterolisthesis. Edema within the T2 and T3 ab utting endplates likely degenerative. Edema in the posterior elements can be seen with instability or inflammatory/degenerative changes. Small disc protrusions at T6-7, T7-8, T8-9, T10-11, and T11-12. LEFT paracentral protrusion T6-7 with mild central canal stenosis. Mild to moderate central canal stenosis T7-T8 with slight indentation and flattening of the thoracic cord. Mild central canal stenosis T10-11. Moderate bilateral bony foraminal narrowing T1-2 and T2-3. Mild to moderate bony foraminal narrowing at LEFT T5-6, LEFT T6-7, bilateral T7-8, bilateral T8-9, bilateral T9-10 LEFT greater than RIGHT, LEF T T10-11 and LEFT T11-12. Moderate facet arthropathy lower thoracic spine. Adrenal glands are normal. Normal caliber thoracic aorta. Small esophageal hernia. IMPRESSION: 1. Central disc protrusion at T2-3 with grade 1 anterolisthesis and moderate to severe central canal stenosis. Impingement of the thoracic cord with a small amount of signal in the cord at this level. 2. Moderate central canal stenosis T1-2. 3. Mild central canal stenosis T6-7, mild to moderate T7-8, and mild T10-11. 4. Multilevel mild to moderate bony foraminal narrowing described above.
--- NOTE | 2023-07-25 11:00 | MR_ITS ---
WS: [email or web address] MRI LUMBAR SPINE NONCONTRAST TECHNIQUE: Sagittal T1, T2 and STIR imaging. Axial T1 and T2 imaging. CLINICAL INFORMATION: G80.1 - Spastic diplegic cerebral palsy COMPARISON: MRI 2015 FINDINGS: Mild lumbar curve. No acute compression. Disc bulging worse at L2-3 L5-S1. Incidental Tarlov cyst in the sacrum. L1-L2: Mild annular bulging. Moderate facet arthropathy. Moderate RIGHT foraminal narrowing. L2-L3: Central disc protrusion with a small annular fissure. Severe central canal stenosis with impin gement of traversing L3 nerve roots bilaterally. Facet arthropathy. Moderate bilateral foraminal narr owing. L3-L4: Mild annular bulging. Narrowing LEFT greater than RIGHT subarticular recess with mild central canal stenosis. Far LEFT tiny synovial cyst encroaches on the far exiting LEFT L3 nerve root. Moderat e to advanced facet arthropathy with facet effusions. Moderate LEFT foraminal narrowing impinges the exiting LEFT L3 nerve root. L4-L5: Slight anterolisthesis L4 on L5. Moderate central canal stenosis with impingement traversing L 5 nerve roots bilaterally. Advanced facet arthropathy with small facet effusions. Moderate LEFT and m ild RIGHT bony foraminal narrowing. L5-S1: Shallow central protrusion with slight impingement on traversing S1 nerve roots bilaterally. M ild facet arthropathy. Moderate LEFT greater than RIGHT bony foraminal narrowing. Visualized pelvic bony structures: Normal. Paravertebral soft tissues: Normal. 2.5 x 2.5 cm multiseptated LEFT renal lesion suspicious for neoplasm. IMPRESSION: 1. Moderate to severe central canal stenosis L2-3 has progressed compared to 2015. Slight retrolisth esis with a small central protrusion at this level and annular fissure. 2. Moderate central canal stenosis L4-5 with slight impingement on traversing L5 nerve roots bilater ally. 3. Disc bulging L5-S1 impinges the traversing S1 nerve roots bilaterally. 4. Mild central canal stenosis L3-4. 5. Multilevel moderate foraminal narrowing described above worse at bilateral L2-L3, LEFT L3-4, LEFT L4-5, and bilateral L5-S1. 6. Advanced arthropathy L4-L5 and L5-S1. 7. Multiseptated LEFT renal lesion measuring 2.5 x 2.5 cm suspicious for renal cell neoplasm. Recomm end further evaluation with contrast-enhanced CT abdomen pelvis.
== END 2023-07-25 09:23 | disposition home or self-care (01) ==
PROVIDERS: PCP Family Medicine; Visit Provider Specialist
DX: G80.1 Spastic diplegic cerebral palsy (principal); R26.9 Unspecified abnormalities of gait and mobility
CPT/HCPCS: 72141; 72146; 72148

== ENCOUNTER → 2023-08-08 12:19 | Outpatient (BNVA) | payer MEDICARE, SELFPAY | PROVIDERS: PCP Family Medicine; Visit Provider Specialist | DX: M47.14 Other spondylosis with myelopathy, thoracic region (principal); M48.04 Spinal stenosis, thoracic region; R90.89 Other abnormal findings on diagnostic imaging of central nervous system; R26.9 Unspecified abnormalities of gait and mobility; N28.9 Disorder of kidney and ureter, unspecified | CPT/HCPCS: 99214; 99215 ==

== ENCOUNTER 2023-08-14 16:12 | Outpatient (CLI) | payer MEDICARE, SELFPAY ==
--- NOTE | 2023-08-14 16:30 | CT_ITS ---
WS: [id number] CT ABDOMEN AND PELVIS WITH CONTRAST HISTORY: Left Renal Mass, Radiology recommended. TECHNIQUE: Imaging performed of the abdomen and pelvis with IV contrast. Single phase imaging of the abdomen. Coronal and sagittal reformats are submitted. All CT scans at [facility] use at [address] one of these dose optimization techniques: automated exposure control; mA and/or kV adjustment per patient size (includes targeted exams where dose is matched to clinical indication); or iterative re construction. IV CONTRAST: Omnipaque 350; 100 mL IV. Oral contrast: Yes. DLP: 1750.89 mGy.cm COMPARISON: MRI lumbar spine 07/25/2023. Prior CT 11/25/2014 Lower thorax: Lung bases are clear. Mild cardiomegaly. Small hiatal hernia. Liver/biliary system: Moderate enlargement of the liver. The liver wraps around the superior aspect o f the spleen. Normal portal vein. No mass. Gallbladder: Prior cholecystectomy. Pancreas: Normal size pancreas and pancreatic duct. No adjacent inflammation. Spleen: Normal size spleen. No mass or infarct. Adrenal glands: Normal RIGHT adrenal gland. Mild hyperplasia of the LEFT adrenal gland. Right kidney: Normal. Left kidney: Abnormal LEFT kidney. There is a solid enhancing renal mass from the mid kidney extendin g anteriorly. Mass measures 2.8 x 2.9 cm and corresponds to the finding on the recent MRI. There are additional cysts within the cortex which are benign. The largest measures 1.6 x 1.5 cm. No hydronephr osis. Aorta: Mild atherosclerosis aorta. No aneurysm. Lymphadenopathy: No significantly enlarged lymph nodes. There are a few small retroperitoneal lymph n odes on the LEFT. Free fluid: None. GI tract: Moderately distended stomach with food products. No small bowel obstruction. Tortuous colon with mild fecal retention. Normal appendix. Mild distal colonic diverticular burden. No acute divert iculitis. Abdominal wall: Unremarkable abdominal wall. No hernia. Pelvis: Prior hysterectomy. No pelvic mass. Minimally distended urinary bladder. Bones: No osteoblastic or osteolytic bone disease. Advanced degenerative changes within the lower tho racic and entire lumbar spine and facet joints. IMPRESSION: 1. Solid LEFT renal mass measuring 2.8 x 2.9 cm. Highly suspicious and consistent with renal cell ca rcinoma. 2. Additional LEFT renal cysts. 3. Mild LEFT adrenal hyperplasia. No definite mass. 4. No adenopathy or ascites. 5. Mild cardiomegaly and a paddle megaly. 6. Mild sigmoid diverticulosis.
[2023-08-14 16:51] LABS: Blood Urea Nitrogen 10 mg/dL (8-23)
[2023-08-14] MEDS: iohexol 350 mg/mL 500 mL Btl (per mL) IV (17:16)
== END 2023-08-14 16:13 | disposition home or self-care (01) ==
PROVIDERS: PCP Family Medicine; Visit Provider Family Medicine
DX: N28.89 Other specified disorders of kidney and ureter (principal); E27.8 Other specified disorders of adrenal gland; I51.7 Cardiomegaly; K57.30 Diverticulosis of large intestine without perforation or abscess without bleeding; N28.1 Cyst of kidney, acquired
CPT/HCPCS: 74177; 82565; 84520; Q9967

== ENCOUNTER 2023-09-06 11:13 | Outpatient (RCR) | payer MEDICARE, SELFPAY | END 2023-09-26 23:59 | disposition home or self-care (01) | LOC: SPT 11:13 | PROVIDERS: PCP Family Medicine; Visit Provider Specialist | DX: R26.89 Other abnormalities of gait and mobility (principal); M62.81 Muscle weakness (generalized) | CPT/HCPCS: 97110; 97112; 97161 ==

== ENCOUNTER → 2023-09-12 12:53 | Outpatient (BNVA) | payer MEDICARE, SELFPAY | PROVIDERS: PCP Family Medicine; Referring Provider Family Medicine; Visit Provider Surgery | DX: K59.00 Constipation, unspecified (principal); R14.0 Abdominal distension (gaseous); R10.9 Unspecified abdominal pain | CPT/HCPCS: 99214 ==

== ENCOUNTER 2023-09-27 06:00 | Outpatient (RCR) | payer MEDICARE, SELFPAY | END 2023-10-26 23:59 | disposition home or self-care (01) | LOC: SPT 06:00 | PROVIDERS: PCP Family Medicine; Visit Provider Specialist | DX: R26.89 Other abnormalities of gait and mobility (principal); M62.81 Muscle weakness (generalized) | CPT/HCPCS: 97110; 97112 ==

== ENCOUNTER → 2023-10-03 13:00 | Outpatient (BNVA) | payer MEDICARE, SELFPAY | PROVIDERS: PCP Family Medicine; Visit Provider Surgery | DX: K59.00 Constipation, unspecified (principal) | CPT/HCPCS: 99213 ==

== ENCOUNTER 2024-04-19 06:00 | Outpatient (RCR) | payer MEDICARE, SELFPAY | END 2024-04-26 23:59 | disposition home or self-care (01) | LOC: SPT 06:00 | PROVIDERS: PCP Family Medicine; Visit Provider Physician Assistant Surgical | DX: M48.04 Spinal stenosis, thoracic region (principal) | CPT/HCPCS: 97110; 97161 ==

== ENCOUNTER → 2024-04-20 13:39 | Outpatient (BNVA) | payer MEDICARE, SELFPAY | PROVIDERS: PCP Family Medicine; Visit Provider Emergency Medicine | DX: R39.9 Unspecified symptoms and signs involving the genitourinary system | CPT/HCPCS: 81000; 87077; 87086; 87184 ==

== ENCOUNTER 2024-04-27 06:00 | Outpatient (RCR) | payer MEDICARE, SELFPAY | END 2024-05-26 23:59 | disposition home or self-care (01) | LOC: SPT 06:00 | PROVIDERS: PCP Family Medicine; Visit Provider Physician Assistant Surgical | DX: M48.04 Spinal stenosis, thoracic region (principal); M43.22 Fusion of spine, cervical region; M62.81 Muscle weakness (generalized) | CPT/HCPCS: 97110 ==

== ENCOUNTER 2024-05-27 06:00 | Outpatient (RCR) | payer MEDICARE, SELFPAY | END 2024-06-26 23:59 | disposition home or self-care (01) | LOC: SPT 06:00 | PROVIDERS: PCP Family Medicine; Visit Provider Physician Assistant Surgical | DX: M48.04 Spinal stenosis, thoracic region (principal) | CPT/HCPCS: 97110; 97112 ==

== ENCOUNTER 2024-09-12 15:53 | Inpatient (IN) | payer MEDICARE, SELFPAY ==
[2024-09-12] VITALS (12 sets, daily range): BP systolic 181–213; BP diastolic 83–129; PULSE 62–77; RESP 15–23; TEMP 36.9–37.2; O2SAT 92–97; BMI 26.6; BMI 26.9
--- NOTE | 2024-09-12 15:56 | XR_ITS ---
WS: [email or web address] Portable AP upright chest, 09/12/2024 Clinical Data: fall Comparison: Two-view chest, 04/18/2023 Findings: No nodules, masses or effusions are seen. The heart is normal. The pulmonary vascularity is not increased. No pneumonia or pneumothorax is seen. The aortic arch shows tortuosity. There are mon itor leads on the chest wall. The lower portion of an anterior cervical disc fusion and posterior cer vical fusion is seen. XR/XR chest 1V portable [id number] Impression: Atherosclerosis.
--- NOTE | 2024-09-12 15:56 | XR_ITS ---
WS: [email or web address] Left hip, 2 views, 09/12/2024 Clinical Data: fall Comparison: Pelvis and right hip, 05/31/2023 Findings: There is a comminuted intertrochanteric fracture of the left hip. The femoral head remains within the acetabulum. The soft tissue is normal. No fractures of the adjacent pelvis are seen. XR/XR hip LT 2-3V wo/w pel* [id number] Impression: Comminuted intertrochanteric fracture left hip.
--- NOTE | 2024-09-12 16:00 | ED_ITS ---
HPI - Fall 2 General: Chief Complaint: Fall Stated Complaint: fall, left hip pain Time Seen by Provider: 09/12/24 15:54 Source: patient and EMS Mode of arrival: EMS Limitations: no limitations History of Present Illness: 79-year-old female who states she was wa lking just prior to arrival states that her left leg gave out on her and she fell and landed on her left hip. She had severe left hip pain since then she has not been able to move that leg or bear weight on that leg. She denies hitting her head denies any other injury she received fentanyl and route states her pain is still an 8 out of 10 she does have rotation of that leg. Associated symptoms-after fall: Denies abdominal pain, chest pain, headache(s) or neck pain Related Data Home Medications Medication Instructions Recorded Confirmed docusate sodium 100 mg capsule mg PO 10/24/23 07/22/24 Previous Rx's Medication Instructions Recorded sucralfate 1 gram tablet 1 g PO BID 4 weeks #56 tabs 09/14/22 albuterol sulfate 90 mcg/actuation 2 puff inhalation Q4H PRN 04/18/23 aerosol inhaler (Ventolin HFA) shortness of breath or wheezing #8.5 grams cholecalciferol (vitamin D3) 1,250 1,250 mcg PO .WEEKLY #12 caps 05/04/23 mcg (50,000 unit) capsule prenat.vits,beronica,opa-kfdm-xynoh 1 tab PO DAILY #90 tabs 05/04/23 magnesium citrate 300 ml PO DAILY #296 mL 07/20/23 lactulose 10 gram/15 mL oral 20 g (30 mL) PO BID #473 mL 07/25/23 solution linaclotide 72 mcg capsule 72 mcg PO DAILY #30 caps 10/03/23 (Linzess) triamcinolone acetonide 0.1 % 1 applic topical DAILY #30 grams 12/12/23 topical cream pantoprazole 40 mg tablet,delayed See Rx Instructions .Route 12/22/23 release .COMPLEX #180 tabs carvedilol 25 mg tablet See Rx Instructions .Route 02/06/24 .COMPLEX #180 tabs rivaroxaban 20 mg tablet (Xarelto) See Rx Instructions .Route 03/04/24 .COMPLEX #30 tabs nitrofurantoin 100 mg PO BID 7 days #14 caps 04/20/24 monohydrate/macrocrystals 100 mg capsule (Macrobid) phenazopyridine 200 mg tablet 200 mg PO Q8H PRN pain 6 doses #6 04/20/24 (Pyridium) tabs tramadol 50 mg tablet 100 mg (2 x 50 mg) PO Q8H PRN pain 06/03/24 30 days #180 tabs hydralazine 100 mg tablet See Rx Instructions .Route 07/25/24 .COMPLEX #90 tabs lisinopril 20 mg tablet See Rx Instructions .Route 07/25/24 .COMPLEX #120 tabs Allergies Allergy/AdvReac Type Severity Reaction Status Date / Time amlodipine Allergy ANGIOEDEMA Verified 07/22/24 13:32 hydrochlorothiazide Allergy HIVES Verified 07/22/24 13:32 hydroxychloroquine Allergy LEG CRAMPS Verified 07/22/24 13:32 [From Plaquenil] levofloxacin [From Levaquin] Allergy DIFFICULTY Verified 07/22/24 13:32 BREATHING Penicillins Allergy ANAPHYLAXIS Verified 07/22/24 13:32 Sulfa (Sulfonamide Allergy RASH Verified 07/22/24 13:32 Antibiotics) Review of Systems 2 Const: Denies: fever(s), chills, body aches or change in appetite ENMT: Denies: throat pain or dental pain Card: Denies: chest pain Resp: Denies: dyspnea GI: Denies: abdominal pain, nausea, vomiting or diarrhea Musc: Reports: extremity pain; Denies: neck pain or back pain Skin/Breast: Denies: rash Neuro: Denies: headache(s) PFSH ED 2 PFSH: Medical History Left carotid stenosis Chronic joint pain Spinal stenosis, lumbar region without neurogenic claudication Renal function test abnormal Cervical stenosis of spine Demyelinating disease Restless legs syndrome Chronic obstructive pulmonary disease, unspecified Gastro-esophageal reflux disease without esophagitis Personal history of transient ischemic attack (TIA), and cerebral infarction without residual deficits Mixed hyperlipidemia Pulmonary embolism on long-term anticoagulation therapy Surgical History Hx of colonoscopy History of esophagogastroduodenoscopy (EGD) with Dr. Wilburn 10 yrs ago at [facility] [place] S/P cholecystectomy S/P tonsillectomy and adenoidectomy H/O: hysterectomy S/P cervical spinal fusion S/P bilateral cataract extraction Family History Other Heart disease Social History Smoking and tobacco/nicotine status: former use of tobacco/nicotine Quit status (tobacco/nicotine): has quit using Former quit date comment: 10/08/23 Alcohol intake: never Substance/Drug Use: never Household members: spouse Marital status: Female Reproductive History: Spontaneous abortions: No Physical Exam 2 Const: COMMON NORMALS: patient oriented x3 HENMT: COMMON NORMALS: normocephalic and atraumatic HEAD & SCALP: n ormocephalic and atraumatic Eye: COMMON NORMALS: conjunctivae normal CONJUNCTIVA: Yes conjunctivae normal Neck/C-Spine: COMMON NORMALS: full ROM and supple Chest: COMMONS NORMALS: normal inspection of the chest Resp: COMMON NORMALS: normal respiratory effort Cardio: COMMON NORMALS: regular rate, regular rhythm and No murmurs present (Cardio) RATE: regular rate RHYTHM: regular rhythm Extremity: NARRATIVE EXTREMITY EXAM: tenderness to left hip leg externally rotated Neuro: COMMON NORMALS: patient oriented x3, moves all extremities and no focal motor deficits Psych: COMMON NORMALS: mental status grossly normal, Normal thought process present and cooperative THOUGHT PROCESS: Normal thought process present Skin: COMMON NORMALS: no rashes or lesions noted and no wounds GENERAL SKIN EXAM: no rashes or lesions noted Course 2 Vital Signs: Vital signs: Vital Signs Temperature 98.5 F 09/12/24 15:54 Pulse Rate 62 09/12/24 15:54 Respiratory Rate 17 09/12/24 17:02 Blood Pressure 213/92 09/12/24 15:54 Pulse Oximetry 95 09/12/24 17:02 MDM - Fall Medical Decision Making Patient presents for left hip fracture from a fall I spoke to hospitalist all orthopedist and will admit at this time. No other injuries noted no head injury Medical Records I reviewed the patient's medical records. Lab Data I reviewed the patient's lab results. 09/12/24 16:47 09/12/24 16:47 Laboratory Results WBC 7.87 10^3/uL (3.29-11.43) 09/12/24 16:47 RBC 4.16 10^6/uL (3.85-5.65) 09/12/24 16:47 Hgb 12.80 g/dL (11.27-16.99) 09/12/24 16:47 Hct 40.4 % (36-47) 09/12/24 16:47 MCV 97.1 fl (85-98) 09/12/24 16:47 MCH 30.8 pg (27-33) 09/12/24 16:47 MCHC 31.7 g/dL (30-55) 09/12/24 16:47 RDW 13.6 % (12.1-15.1) 09/12/24 16:47 Plt Count 193 10^3/cmm (157-399) 09/12/24 16:47 MPV 11.2 fL (7.4-10.4) H 09/12/24 16:47 Neut % (Auto) 69.0 % 09/12/24 16:47 Lymph % (Auto) 22.6 % 09/12/24 16:47 Saline % (Auto) 6.2 % 09/12/24 16:47 Eos % (Auto) 1.4 % 09/12/24 16:47 Baso % (Auto) 0.3 % 09/12/24 16:47 Neut # (Auto) 5.43 10^3/uL (1.8-7.7) 09/12/24 16:47 Lymph # (Auto) 1.8 10^3/uL (0.8-4.8) 09/12/24 16:47 Saline # (Auto) 0.5 10^3/uL (0.2-0.9) 09/12/24 16:47 Eos # (Auto) 0.1 10^3/uL (0.0-0.8) 09/12/24 16:47 Baso # (Auto) 0.0 10^3/uL (0.0-0.1) 09/12/24 16:47 Nucleated RBC % (auto) 0 % 09/12/24 16:47 Nucleated RBCs # 0.0 /100WBC 09/12/24 16:47 Sodium 138 mmol/L (136-145) 09/12/24 16:47 Chloride 104 mmol/L (98-107) 09/12/24 16:47 Carbon Dioxide 27 mmol/L (22-29) 09/12/24 16:47 BUN 20 mg/dL (8-23) 09/12/24 16:47 GFR Calculation Not Reportable 09/12/24 16:47 Calculated Osmolality 290 mOsm/kg (285-295) 09/12/24 16:47 Total Bilirubin 0.2 mg/dL (0.15-1.2) 09/12/24 16:47 AST 16 U/L (0-32) 09/12/24 16:47 ALT 9 U/L (0-33) 09/12/24 16:47 Globulin 2.8 g/dL (1.3-4.6) 09/12/24 16:47 All radiology interpretation(s) finalized by discharge Discharge Plan Discharge Patient Disposition: Admitted As Inpatient Clinical Impression: Fall Closed fracture of left hip Qualifiers: Encounter type: initial encounter Qualified Code(s): S72.002A - Fracture of unspecified part of neck of left femur, initial encounter for closed fracture Condition: Stable Coding Level of Care Code ED [employer] for Fredis Vick
[2024-09-12] MEDS: HYDROmorphone 1 mg/mL INJ 1 mL IVP (16:09)
--- NOTE | 2024-09-12 16:39 | XRR_ITS ---
PROCEDURE INFORMATION: Exam: XR Left Femur Exam date and time: 09/12/2024 5:26 PM Age: 79 years old Clinical indication: Injury or trauma; Fall; Fracture, traumatic; Closed fracture; Hip; Left; Additional info: Fall today TECHNIQUE: Imaging protocol: Radiologic exam of the left femur. Views: 2 views. COMPARISON: CT hip LT wo con* [id number] 09/12/2024 5:09 PM FINDINGS: Bones/joints: Acute comminuted intratrochanteric fracture left hip redemonstrated. Perirenal left femur is intact. There are advanced degenerative changes left knee. Soft tissues: Unremarkable. XR/XR femur LT min 2V* [id number] IMPRESSION: Acute intratrochanteric fracture left hip.
--- NOTE | 2024-09-12 16:39 | XRR_ITS ---
PROCEDURE INFORMATION: Exam: XR Left Knee Exam date and time: 09/12/2024 5:26 PM Age: 79 years old Clinical indication: Injury or trauma; Fall; Fracture, traumatic; Closed fracture; Hip; Left; Additional info: Fall today TECHNIQUE: Imaging protocol: Radiologic exam of the left knee. Views: 1 or 2 views. COMPARISON: CT hip LT wo con* [id number] 09/12/2024 5:09 PM FINDINGS: Bones/joints: There are advanced degenerative changes involving the medial knee compartment with joint space narrowing, subchondral sclerosis and marginal spurring. Less pronounced degenerative changes involving the remaining joint surfaces. There is no fracture, deformity or gross malalignment. Soft tissues: Normal. XR/XR knee LT 1-2V [id number] IMPRESSION: Advanced degenerative changes most pronounced within the medial knee compartment. No acute bony abnormalities.
--- NOTE | 2024-09-12 16:39 | CTR_ITS ---
PROCEDURE INFORMATION: Exam: CT Left Lower Extremity, Hip Exam date and time: 09/12/2024 5:09 PM Age: 79 years old Clinical indication: Injury or trauma; Fall; Other: Pain TECHNIQUE: Imaging protocol: CT of the left lower extremity without contrast was performed. Exam focused on the hip. Radiation optimization: All CT scans at this facility use at least one of these dose optimization techniques: automated exposure control; mA and/or kV adjustment per patient size (includes targeted exams where dose is matched to clinical indication); or iterative reconstruction. COMPARISON: CR XR hip LT 2-3V wo/w pel* [id number] 09/12/2024 4:12 PM RADIATION DOSE METRICS: Total DLP (mGy-cm): 372 FINDINGS: Bones/joints: Acute comminuted intratrochanteric fracture left hip with multiple fracture fragments along the fracture line. There is overriding of the major fracture components resulting in varus angulation at the fracture site. There is no dislocation or malalignment of the femoral head. Remaining visualized osseous structures are unremarkable. Soft tissues: There is some superficial bruising lateral to the left hip.. CT/CT hip LT wo con* [id number] IMPRESSION: Acute comminuted intertrochanteric fracture left hip.
[2024-09-12 16:56] LABS: Basophils % 0.3 %; Eosinophils # 0.1 10^3/uL (0.0-0.8); Eosinophils % 1.4 %; Hematocrit 40.4 % (36-47); Lymphocytes # 1.8 10^3/uL (0.8-4.8); Lymphocytes % 22.6 %; Mean Corpuscular HGB Conc 31.7 g/dL (30-55); Mean Corpuscular Hemoglobin 30.8 pg (27-33); Mean Corpuscular Volume 97.1 fl (85-98); Mean Platelet Volume 11.2 fL (7.4-10.4); Monocytes # 0.5 10^3/uL (0.2-0.9); Monocytes % 6.2 %; Neutrophils # 5.43 10^3/uL (1.8-7.7); Nucleated Red Blood Cells % 0 %; Platelet Count 193 10^3/cmm (157-399); Red Blood Count 4.16 10^6/uL (3.85-5.65); Red Cell Distribution Width 13.6 % (12.1-15.1); White Blood Count 7.87 10^3/uL (3.29-11.43)
[2024-09-12] MEDS: HYDROmorphone 1 mg/mL INJ 1 mL 0.5 MG IVP (17:02)
[2024-09-12 17:19] LABS: Alanine Aminotransferase 9 U/L (0-33); Albumin Level 3.4 g/dL (3.5-5.2); Alkaline Phosphatase 110 U/L (35-105); Aspartate Amino Transferase 16 U/L (0-32); Blood Urea Nitrogen 20 mg/dL (8-23); Calcium 8.1 mg/dL (8.5-10.5); Carbon Dioxide 27 mmol/L (22-29); Chloride 104 mmol/L (98-107); Creatinine Clr Calc Pharmacy 43.4422; Globulin 2.8 g/dL (1.3-4.6); Glucose 121 mg/dL (65-115); Osmolality Calculated 290 mOsm/kg (285-295); Sodium 138 mmol/L (136-145); Total Bilirubin 0.2 mg/dL (0.15-1.2); Total Protein 6.2 g/dL (6.6-8.7)
--- NOTE | 2024-09-12 17:20 | PM.HP ---
Providers/Chief Complaint Primary Care Provider: William Reyna DO Chief Complaint: fall, left hip pain History of Present Illness Kathie Valerio is a 79 year old female who sustained a fall and landed on her left hip. In the ER she has been diagnosed with left hip fracture. Official reads are pending. Dr. Encarnacion consulted. Patient is not endorsing syncope or chest pain, patient is stating that her legs just give up on her and she landed on her left hip. She has history of neuropathy. Review of Systems Const: Denies: fever(s) Eyes: Denies: change in vision ENMT: Denies: throat pain Card: Denies: chest pain Resp: Reports: dyspnea GI: Denies: abdominal pain Medications/Allergies Home Medications Medication Instructions Recorded Confirmed Last Taken Type sucralfate 1 gram tablet 1 g PO BID 4 weeks #56 tabs 09/14/22 07/22/24 Unknown Rx albuterol sulfate 90 mcg/actuation 2 puff inhalation Q4H PRN 04/18/23 07/22/24 Unknown Rx aerosol inhaler (Ventolin HFA) shortness of breath or wheezing #8.5 grams cholecalciferol (vitamin D3) 1,250 1,250 mcg PO .WEEKLY #12 caps 05/04/23 07/22/24 Unknown Rx mcg (50,000 unit) capsule prenat.vits,beronica,juj-ubsj-juhez 1 tab PO DAILY #90 tabs 05/04/23 07/22/24 Unknown Rx magnesium citrate 300 ml PO DAILY #296 mL 07/20/23 07/22/24 Unknown Rx lactulose 10 gram/15 mL oral 20 g (30 mL) PO BID #473 mL 07/25/23 07/22/24 Unknown Rx solution linaclotide 72 mcg capsule 72 mcg PO DAILY #30 caps 10/03/23 07/22/24 Unknown Rx (Linzess) docusate sodium 100 mg capsule mg PO 10/24/23 07/22/24 Unknown History triamcinolone acetonide 0.1 % 1 applic topical DAILY #30 grams 12/12/23 07/22/24 Unknown Rx topical cream pantoprazole 40 mg tablet,delayed See Rx Instructions .Route 12/22/23 07/22/24 Unknown Rx release .COMPLEX #180 tabs carvedilol 25 mg tablet See Rx Instructions .Route 02/06/24 07/22/24 Unknown Rx .COMPLEX #180 tabs rivaroxaban 20 mg tablet (Xarelto) See Rx Instructions .Route 03/04/24 07/22/24 Unknown Rx .COMPLEX #30 tabs nitrofurantoin 100 mg PO BID 7 days #14 caps 04/20/24 07/22/24 Unknown Rx monohydrate/macrocrystals 100 mg capsule (Macrobid) phenazopyridine 200 mg tablet 200 mg PO Q8H PRN pain 6 doses #6 04/20/24 07/22/24 Unknown Rx (Pyridium) tabs tramadol 50 mg tablet 100 mg (2 x 50 mg) PO Q8H PRN pain 06/03/24 07/22/24 Unknown Rx 30 days #180 tabs hydralazine 100 mg tablet See Rx Instructions .Route 07/25/24 Unknown Rx .COMPLEX #90 tabs lisinopril 20 mg tablet See Rx Instructions .Route 07/25/24 Unknown Rx .COMPLEX #120 tabs Allergies Allergy/AdvReac Type Severity Reaction Status Date / Time amlodipine Allergy ANGIOEDEMA Verified 07/22/24 13:32 hydrochlorothiazide Allergy HIVES Verified 07/22/24 13:32 hydroxychloroquine Allergy LEG CRAMPS Verified 07/22/24 13:32 [From Plaquenil] levofloxacin [From Levaquin] Allergy DIFFICULTY Verified 07/22/24 13:32 BREATHING Penicillins Allergy ANAPHYLAXIS Verified 07/22/24 13:32 Sulfa (Sulfonamide Allergy RASH Verified 07/22/24 13:32 Antibiotics) PFSH Acute PFSH: Medical History Left carotid stenosis Chronic joint pain Spinal stenosis, lumbar region without neurogenic claudication Renal function test abnormal Cervical stenosis of spine Demyelinating disease Restless legs syndrome Chronic obstructive pulmonary disease, unspecified Gastro-esophageal reflux disease without esophagitis Personal history of transient ischemic attack (TIA), and cerebral infarction without residual deficits Mixed hyperlipidemia Pulmonary embolism on long-term anticoagulation therapy Surgical History Hx of colonoscopy History of esophagogastroduodenoscopy (EGD) with Dr. Wilburn 10 yrs ago at [facility] [place] S/P cholecystectomy S/P tonsillectomy and adenoidectomy H/O: hysterectomy S/P cervical spinal fusion S/P bilateral cataract extraction Family History Other Heart disease Social History Smoking and tobacco/nicotine status: former use of tobacco/nicotine Quit status (tobacco/nicotine): has quit using Former quit date comment: 10/08/23 Alcohol intake: never Substance/Drug Use: never Household members: spouse Marital status: Female Reproductive History: Spontaneous abortions: No Vitals/I&O/Wt Last Vital Signs Temp 98.5 F 09/12/24 15:54 Pulse 62 09/12/24 15:54 Resp 17 09/12/24 17:02 BP 213/92 09/12/24 15:54 Pulse Ox 95 09/12/24 17:02 Weight last 48 hrs Weight 79.379 kg Physical Exam Narrative: Awake and alert Left leg rotated ultrasound showed GCS 15 Limited range of motion Euvolemic Nonfocal neuroexam Pleasant cooperative S1, S2 Currently on room air Sinus rhythm Heart rate in 60s Data 09/12/24 16:47 09/12/24 16:47 A&P Assessment and plan (1) Benign essential HTN: (2) Current use of snf anticoagulation: (3) Pulmonary embolism: (4) Renal cell carcinoma: Qualifiers: Laterality: left Qualified Code(s): C64.2 - Malignant neoplasm of left kidney, except renal pelvis (5) Closed fracture of left hip: Qualifiers: Encounter type: initial encounter Qualified Code(s): S72.002A - Fracture of unspecified part of neck of left femur, initial encounter for closed fracture (6) Chronic joint pain: (7) Left knee pain: Qualifiers: Chronicity: chronic Qualified Code(s): M25.562 - Pain in left knee; G89.29 - Other chronic pain (8) Neurologic gait disorder: Plan Mechanical fall, hip fracture Dr. Paez consulted N.p.o. 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
[2024-09-12 17:27] LABS: Anion Gap 11.7 (5-19); Potassium 4.7 mmol/L (3.5-5.1)
[2024-09-12 17:32] LABS: INR 1.16 (0.8-1.2)
[2024-09-12] MEDS: morphine 4 mg/mL SDV 1 mL 2 MG IVP ×2 (18:47→23:02)
[2024-09-12] MEDS: morphine IR 15 mg Tablet PO ×2 (18:47→23:05)
[2024-09-12 19:28] LABS: Vitamin B12 249 pg/mL (232-1245)
[2024-09-12] MEDS: pantoprazole DR 40 mg Tablet PO (20:22)
[2024-09-12] MEDS: hyDRALAzine 50 mg Tablet 100 MG PO (20:23)
[2024-09-12] MEDS: carvedilol 25 mg Tablet PO (20:23)
--- NOTE | 2024-09-12 23:04 | PM.CONSULT ---
Providers/Reason For Consult Consulting Physician/Specialty*: Shahab Encarnacion DO Reason for Consult*: Left hip intertrochanteric femur fracture Requesting Physician: Dr. Garcia Attending Physician: Maycol Odom MD Primary Care Provider: William Reyna DO History of Present Illness History of Present Illness Kathie Valerio is a 79 year old female Patient sustained a mechanical fall and landed onto her left hip unable to bear weight has a deformity to the left lower extremity as patient has been found to have a left hip intertrochanteric femur fracture emergency department. Patient ambulates without assistive device at baseline. Patient denies any other injuries or hitting of her head. Patient states she has a history of peripheral neuropathy. She denies any syncopal episodes prior to the fall. This point time orthopedics was consulted for treatment recommendations and internal medicine is admitted patient has primary team. Review of Systems General: Reports: 10 or more systems reviewed and unremarkable except in HPI and below Medications/Allergies Home Medications Medication Instructions Recorded Confirmed Last Taken Type cholecalciferol (vitamin D3) 1,250 1,250 mcg PO .WEEKLY #12 caps 05/04/23 09/12/24 Unknown Rx mcg (50,000 unit) capsule magnesium citrate 300 ml PO DAILY #296 mL 07/20/23 09/12/24 Unknown Rx lactulose 10 gram/15 mL oral 20 g (30 mL) PO BID #473 mL 07/25/23 09/12/24 Unknown Rx solution docusate sodium 100 mg capsule 100 mg PO BID PRN Constipation 10/24/23 09/12/24 Unknown History pantoprazole 40 mg tablet,delayed See Rx Instructions .Route 12/22/23 09/12/24 09/12/24 08:00 Rx release .COMPLEX #180 tabs carvedilol 25 mg tablet See Rx Instructions .Route 02/06/24 09/12/24 09/12/24 08:00 Rx .COMPLEX #180 tabs rivaroxaban 20 mg tablet (Xarelto) See Rx Instructions .Route 03/04/24 09/12/24 09/12/24 08:00 Rx .COMPLEX #30 tabs tramadol 50 mg tablet 100 mg (2 x 50 mg) PO Q8H PRN pain 06/03/24 09/12/24 09/11/24 15:00 Rx 30 days #180 tabs hydralazine 100 mg tablet See Rx Instructions .Route 07/25/24 09/12/24 09/12/24 08:00 Rx .COMPLEX #90 tabs lisinopril 20 mg tablet See Rx Instructions .Route 07/25/24 09/12/24 09/12/24 08:00 Rx .COMPLEX #120 tabs Allergies Allergy/AdvReac Type Severity Reaction Status Date / Time amlodipine Allergy ANGIOEDEMA Verified 07/22/24 13:32 hydrochlorothiazide Allergy HIVES Verified 07/22/24 13:32 hydroxychloroquine Allergy LEG CRAMPS Verified 07/22/24 13:32 [From Plaquenil] levofloxacin [From Levaquin] Allergy DIFFICULTY Verified 07/22/24 13:32 BREATHING Penicillins Allergy ANAPHYLAXIS Verified 07/22/24 13:32 Sulfa (Sulfonamide Allergy RASH Verified 07/22/24 13:32 Antibiotics) Current Medications Generic Name Dose Route Start Last Admin Trade Name Freq PRN Reason Stop Dose Admin Carvedilol 25 mg 09/12/24 19:00 09/12/24 20:23 Carvedilol 25 Mg Tablet PO 25 mg BID DARWIN Administration Hydralazine HCl 100 mg 09/12/24 21:00 09/12/24 20:23 Hydralazine 50 Mg Tablet PO 100 mg TID DARWIN Administration Morphine Sulfate 15 mg 09/12/24 18:17 09/12/24 18:47 Morphine Ir 15 Mg Tablet PO 15 mg Q6H PRN Administration MODERATE PAIN Morphine Sulfate 2 mg 09/12/24 18:17 09/12/24 23:02 Morphine 4 Mg/Ml Sdv 1 Ml IVP 2 mg Q4H PRN Administration SEVERE PAIN Nitrofurantoin Macrocrystals 100 mg 09/12/24 18:17 09/12/24 18:45 Nitrofurantoin Sr (Bid) 100 Mg Capsule PO Not Given BID DARWIN Pantoprazole Sodium 40 mg 09/12/24 19:00 09/12/24 20:[address] 40 Mg Tablet PO 40 mg BID DARWIN Administration PFSH Acute PFSH: Medical History Left carotid stenosis Chronic joint pain Spinal stenosis, lumbar region without neurogenic claudication Renal function test abnormal Cervical stenosis of spine Demyelinating disease Restless legs syndrome Chronic obstructive pulmonary disease, unspecified Gastro-esophageal reflux disease without esophagitis Personal history of transient ischemic attack (TIA), and cerebral infarction without residual deficits Mixed hyperlipidemia Pulmonary embolism on long-term anticoagulation therapy Surgical History Hx of colonoscopy History of esophagogastroduodenoscopy (EGD) with Dr. Wilburn 10 yrs ago at [facility] [place]/P cholecystectomy S/P tonsillectomy and adenoidectomy H/O: hysterectomy S/P cervical spinal fusion S/P bilateral cataract extraction Family History Other Heart disease Social History Smoking and tobacco/nicotine status: former use of tobacco/nicotine Quit status (tobacco/nicotine): has quit using Former quit date comment: 10/08/23 Alcohol intake: never Substance/Drug Use: never Household members: spouse Marital status: Female Reproductive History: Spontaneous abortions: No Vitals/I&O/Wt Last Vital Signs Temp 98.9 F 09/12/24 20:00 Pulse 77 09/12/24 20:00 Resp 16 09/12/24 23:02 BP 181/95 09/12/24 20:00 Pulse Ox 97 09/12/24 20:00 O2 Del Method Room Air 09/12/24 20:00 Weight last 48 hrs Weight 177 lb 3 oz Weight 175 lb Physical Exam Narrative: Patient is able to to follow commands and perform a standard examination.?? Examination left lower extremity: Examination of the left lower extremity demonstrates patient has tenderness palpation of the left?hip?as well as the left lower extremity is shortened and externally rotated pt has positive logroll on examination unable to perform Stinchfield's secondary to pain and discomfort.? Patient is able to wiggle toes?plantarflex and dorsiflex ankle sensations intact to light touch distally.? Distal pulses are palpable left lower extremity is warm and well-perfused.? Mild swelling noted about the left?hip.?? Secondary survey examination unremarkable For any acute pathology to the bilateral upper extremities or contralateral lower extremity.? pt? has no tenderness to palpation to the bilateral upper extremities joints and no noticeable deformities.? ?gross motor and sensory is intact to the bilateral upper extremities.? Contralateral lower extremity has tenderness to the?hip?knee or ankle with no appreciable deformities and is able to?plantarflex and dorsiflex ankle sensations intact to light touch distally as well as wiggle toes.? Distal pulses palpable.? Negative pelvic compression test, no tenderness palpation of the spine. Urinary Catheter Management: Gramajo: Cath Placed During This Visit: yes Urinary Catheter Date of Insertion: 09/12/24 Urinary Catheter Time of Insertion: 19:47 Data 09/13/24 04:47 09/13/24 04:47 Xray Ortho: Radiologist's impression: Ordering Provider/Ordering MD: Kerno Garcia MD Date of Service: 09/12/24 Procedure(s): XR femur LT min 2V* [id number] Accession Number(s): [id number] Report Number: [id number] PROCEDURE INFORMATION: Exam: XR Left Femur Exam date and time: 09/12/2024 5:26 PM Age: 79 years old Clinical indication: Injury or trauma; Fall; Fracture, traumatic; Closed fracture; Hip; Left; Additional info: Fall today TECHNIQUE: Imaging protocol: Radiologic exam of the left femur. Views: 2 views. COMPARISON: CT hip LT wo con* [id number] 09/12/2024 5:09 PM FINDINGS: Bones/joints: Acute comminuted intratrochanteric fracture left hip redemonstrated. Perirenal left femur is intact. There are advanced degenerative changes left knee. Soft tissues: Unremarkable. XR/XR femur LT min 2V* [id number] IMPRESSION: Acute intratrochanteric fracture left hip. Ordering Provider/Ordering MD: Keron Garcia MD Date of Service: 09/12/24 Procedure(s): CT hip LT wo con* [id number] Accession Number(s): [id number] Report Number: [id number] PROCEDURE INFORMATION: Exam: CT Left Lower Extremity, Hip Exam date and time: 09/12/2024 5:09 PM Age: 79 years old Clinical indication: Injury or trauma; Fall; Other: Pain TECHNIQUE: Imaging protocol: CT of the left lower extremity without contrast was performed. Exam focused on the hip. Radiation optimization: All CT scans at this facility use at least one of these dose optimization techniques: automated exposure control; mA and/or kV adjustment per patient size (includes targeted exams where dose is matched to clinical indication); or iterative reconstruction. COMPARISON: CR XR hip LT 2-3V wo/w pel* [id number] 09/12/2024 4:12 PM RADIATION DOSE METRICS: Total DLP (mGy-cm): 372 FINDINGS: Bones/joints: Acute comminuted intratrochanteric fracture left hip with multiple fracture fragments along the fracture line. There is overriding of the major fracture components resulting in varus angulation at the fracture site. There is no dislocation or malalignment of the femoral head. Remaining visualized osseous structures are unremarkable. Soft tissues: There is some superficial bruising lateral to the left hip.. CT/CT hip LT wo con* [id number] IMPRESSION: Acute comminuted intertrochanteric fracture left hip. Ordering Provider/Ordering MD: Keron Garcia MD Date of Service: 09/12/24 Procedure(s): XR knee LT 1-2V [id number] Accession Number(s): [id number] Report Number: [id number] PROCEDURE INFORMATION: Exam: XR Left Knee Exam date and time: 09/12/2024 5:26 PM Age: 79 years old Clinical indication: Injury or trauma; Fall; Fracture, traumatic; Closed fracture; Hip; Left; Additional info: Fall today TECHNIQUE: Imaging protocol: Radiologic exam of the left knee. Views: 1 or 2 views. COMPARISON: CT hip LT wo con* [id number] 09/12/2024 5:09 PM FINDINGS: Bones/joints: There are advanced degenerative changes involving the medial knee compartment with joint space narrowing, subchondral sclerosis and marginal spurring. Less pronounced degenerative changes involving the remaining joint surfaces. There is no fracture, deformity or gross malalignment. Soft tissues: Normal. XR/XR knee LT 1-2V [id number] IMPRESSION: Advanced degenerative changes most pronounced within the medial knee compartment. No acute bony abnormalities. A&P Assessment and plan (1) Fracture, intertrochanteric, left femur: Plan X-rays reviewed Internal medicine as primary Orthopedics consulted Nonweightbearing left lower extremity Ice as needed for pain and swelling Pain control Hold a.m. anticoagulation May have a diet today, patient should be n.p.o. at midnight Add-on tomorrow for left hip trochanteric femur nail MDM: Patient is a 79-year-old female with sustained a fall and presented emergency department. she does ambulate without assistive device at baseline. Patient found to have a comminuted left intertrochanteric femur fracture At this point in time we talked about her treatment options. We talked about nonoperative and operative invention given the significant displacement as well as her baseline ambulation status would recommend surgical intervention for left hip trochanteric femur nail with goals for earlier mobilization and pain control. we talked about the ins and outs of procedure the risk, benefits, complications, alternatives. Risk of surgery include but not limited to make a better make it worse injury nerves vessels or tendons, infection, painful hardware, hardware failure, acute postoperative anemia/blood loss. Understanding risk of surgery, patient's daughter elects to proceed with surgical intervention. Plan will be to proceed with a left hip trochanteric femur nail tomorrow. All questions answered. Coding Level of Care Code Acute Code for [facility] Diagnoses Fracture, intertrochanteric, left femur S72.142A Time Spent (min) 45
[2024-09-13] VITALS (22 sets, daily range): BP systolic 99–164; BP diastolic 63–89; PULSE 64–87; RESP 14–20; TEMP 36.2–37.6; O2SAT 93–99
[2024-09-13 05:31] LABS: Basophils % 0.4 %; Eosinophils % 0.5 %; Hematocrit 39.1 % (36-47); Lymphocytes # 1.9 10^3/uL (0.8-4.8); Lymphocytes % 22.7 %; Mean Corpuscular HGB Conc 31.2 g/dL (30-55); Mean Corpuscular Hemoglobin 30.3 pg (27-33); Mean Platelet Volume 11.5 fL (7.4-10.4); Monocytes # 0.6 10^3/uL (0.2-0.9); Monocytes % 7.2 %; Neutrophils % 68.8 %; Nucleated Red Blood Cells % 0 %; Platelet Count 171 10^3/cmm (157-399); Red Blood Count 4.03 10^6/uL (3.85-5.65); Red Cell Distribution Width 13.6 % (12.1-15.1); White Blood Count 8.28 10^3/uL (3.29-11.43)
[2024-09-13 05:53] LABS: Anion Gap 11.4 (5-19); Blood Urea Nitrogen 19 mg/dL (8-23); Calcium 7.9 mg/dL (8.5-10.5); Carbon Dioxide 28 mmol/L (22-29); Chloride 104 mmol/L (98-107); Creatinine Clr Calc Pharmacy 42.8869; Glucose 133 mg/dL (65-115); Magnesium 1.8 mg/dL (1.7-2.3); Osmolality Calculated 292 mOsm/kg (285-295); Potassium 4.4 mmol/L (3.5-5.1); Sodium 139 mmol/L (136-145)
--- NOTE | 2024-09-13 07:31 | PC.PHAR ---
Med rec completed by nurse on floor. Notes indicate pt is no longer taking the following medications: Triamcinolone 0.1%-daily, Carafate 1gm-bid, vit-daily, Pyridium 200mg q8h prn, Macrobid 100mg-bid, Linzess 72mg-daily, Ventolin Inh. 2puffs q4h prn sob/whz. Removed from pt chart.
[2024-09-13] MEDS: morphine 4 mg/mL SDV 1 mL 2 MG IVP (07:59)
--- NOTE | 2024-09-13 09:47 | PM.PN ---
Subjective Subjective: Patient is complaining of pain in her hip N.p.o. Going for surgical intervention around noon CBC BMP unremarkable No significant coagulopathy on labs today Hemodynamically stable Hypertensive Vitals/I&O/Wt Last Vital Signs Temp 99.7 F H 09/13/24 08:00 Pulse 78 09/13/24 08:00 Resp 15 09/13/24 08:00 BP 164/77 09/13/24 08:00 Pulse Ox 95 09/13/24 08:00 O2 Del Method Room Air 09/13/24 08:00 09/12/24 09/13/24 09/13/24 22:59 06:59 14:59 Output Total 350 / 350 Balance -350 / -350 Weight last 48 hrs Weight 77.139 kg Weight 80.371 kg Weight 79.379 kg Physical Exam Narrative: Clinically looks dehydrated Pleasant cooperative Nonfocal neuroexam Gramajo catheter in place GCS 15 Left hip limited mobility No neurovascular compromise GCS 15 Hypertensive Urinary Catheter Management: Gramajo: Cath Placed During This Visit: yes Reason for Continuing Indwelling Catheter: Perioperative Use in Selected Surgeries Urinary Catheter Date of Insertion: 09/12/24 Urinary Catheter Time of Insertion: 19:47 Data 09/13/24 04:47 09/13/24 04:47 A&P Assessment and plan (1) Benign essential HTN: (2) 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 of 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 for 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: (3) Pulmonary embolism: (4) Renal cell carcinoma: Qualifiers: Laterality: left Qualified Code(s): C64.2 - Malignant neoplasm of left kidney, except renal pelvis (5) Closed fracture of left hip: Qualifiers: Encounter type: initial encounter Qualified Code(s): S72.002A - Fracture of unspecified part of neck of left femur, initial encounter for closed fracture (6) Chronic joint pain: (7) Left knee pain: Qualifiers: Chronicity: chronic Qualified Code(s): M25.562 - Pain in left knee; G89.29 - Other chronic pain (8) Neurologic gait disorder: Plan Mechanical fall, hip fracture Planning for surgical intervention today We can resume her anticoagulating agent likely on 09/14 Opioids along bowel regimen Gramajo catheter can be removed by Monday Patient is full code N.p.o. Hypertension is like related to current pain, Clinically looks dehydrated will give her gentle fluid hydration Patient will need SNF Her is dialysis dependent 82 years old she will benefit from SNF after surgery Attestations Medical Necessity Statement*: Continue medical management Diagnoses Benign essential HTN I10 Current use of retirement anticoagulation Z79.01 Pulmonary embolism I26.99 Renal cell carcinoma of left kidney C64.2 Laterality: left Closed fracture of left hip S72.002A Encounter type: initial encounter Chronic joint pain M25.50; G89.29 Chronic pain of left knee M25.562; G89.29 Chronicity: chronic Neurologic gait disorder R26.9
--- NOTE | 2024-09-13 11:23 | ANES.PREANE2 ---
Pre-Anesthetic Assessment Height/Weight: Height 5 ft 8 in Weight 170 lb 1 oz Temp Pulse Resp BP Pulse Ox O2 Del Method 99.7 F H 78 15 164/77 95 Room Air 09/13/24 08:00 09/13/24 08:00 09/13/24 08:00 09/13/24 08:00 09/13/24 08:00 09/13/24 08:00 Preop Diagnosis: Left intertrochanteric femur fracture Operation Date: 09/13/24 12:15 Proposed Procedures p Trochanteric Femoral Nail(Left) - Shahab Conway, DO Was Beta [place] taken within 24 hours: Yes Was Clonidine taken within 24 hours: N/A Social Tobacco and No alcohol Exam alert, oriented x 3 and regular rate & rhythm Airway Submandibular: within normal limits Cervical ROM: within normal limits Mallampati: Class II Dentition: other (edentulous) Anesthetic Plan ASA status: 3 Anesthesia: General Other: No prior issues with anesthesia Patient is n.p.o. since yesterday History of hypertension on lisinopril and carvedilol. BB taken yesterday GERD on Protonix On chronic Xarelto for PEs. Most recent PE 2 years ago, last taken 09/11/2024 Labs reviewed today and acceptable for procedure, mild CHAS noted Prior echo in 2021 showing EF 65% RBBB on previous EKG Plan for general anesthesia, patient understands she is at increased risk of bleeding due to the Xarelto but is also at increased risk of PE Medications/Allergies Home Medications Medication Instructions Recorded Confirmed Last Taken Type cholecalciferol (vitamin D3) 1,250 1,250 mcg PO .WEEKLY #12 caps 05/04/23 09/12/24 Unknown Rx mcg (50,000 unit) capsule magnesium citrate 300 ml PO DAILY #296 mL 07/20/23 09/12/24 Unknown Rx lactulose 10 gram/15 mL oral 20 g (30 mL) PO BID #473 mL 07/25/23 09/12/24 Unknown Rx solution docusate sodium 100 mg capsule 100 mg PO BID PRN Constipation 10/24/23 09/12/24 Unknown History pantoprazole 40 mg tablet,delayed See Rx Instructions .Route 12/22/23 09/12/24 09/12/24 08:00 Rx release .COMPLEX #180 tabs carvedilol 25 mg tablet See Rx Instructions .Route 02/06/24 09/12/24 09/12/24 08:00 Rx .COMPLEX #180 tabs rivaroxaban 20 mg tablet (Xarelto) See Rx Instructions .Route 03/04/24 09/12/24 09/12/24 08:00 Rx .COMPLEX #30 tabs tramadol 50 mg tablet 100 mg (2 x 50 mg) PO Q8H PRN pain 06/03/24 09/12/24 09/11/24 15:00 Rx 30 days #180 tabs hydralazine 100 mg tablet See Rx Instructions .Route 07/25/24 09/12/24 09/12/24 08:00 Rx .COMPLEX #90 tabs lisinopril 20 mg tablet See Rx Instructions .Route 07/25/24 09/12/24 09/12/24 08:00 Rx .COMPLEX #120 tabs Allergies Allergy/AdvReac Type Severity Reaction Status Date / Time amlodipine Allergy ANGIOEDEMA Verified 07/22/24 13:32 hydrochlorothiazide Allergy HIVES Verified 07/22/24 13:32 hydroxychloroquine Allergy LEG CRAMPS Verified 07/22/24 13:32 [From Plaquenil] levofloxacin [From Levaquin] Allergy DIFFICULTY Verified 07/22/24 13:32 BREATHING Penicillins Allergy ANAPHYLAXIS Verified 07/22/24 13:32 Sulfa (Sulfonamide Allergy RASH Verified 07/22/24 13:32 Antibiotics) Current Medications Generic Name Dose Route Start Last Admin Trade Name Freq PRN Reason Stop Dose Admin Carvedilol 25 mg 09/12/24 19:00 09/13/24 08:01 Carvedilol 25 Mg Tablet PO Not Given BID DARWIN Hydralazine HCl 100 mg 09/12/24 21:00 09/13/24 08:01 Hydralazine 50 Mg Tablet PO Not Given TID DARWIN Lactulose 20 gm 09/13/24 09:00 09/13/24 07:33 Lactulose Oral Liq 20 Gm/30 Ml Udc PO Not Given BID DARWIN Morphine Sulfate 15 mg 09/12/24 18:17 09/12/24 23:05 Morphine Ir 15 Mg Tablet PO 15 mg Q6H PRN Administration MODERATE PAIN Morphine Sulfate 2 mg 09/12/24 18:17 09/13/24 07:59 Morphine 4 Mg/Ml Sdv 1 Ml IVP 2 mg Q4H PRN Administration SEVERE PAIN Nitrofurantoin Macrocrystals 100 mg 09/12/24 18:17 09/13/24 07:32 Nitrofurantoin Sr (Bid) 100 Mg Capsule PO Not Given BID [facility] Pantoprazole Sodium 40 mg 09/12/24 19:00 09/13/24 08:[address] 40 Mg Tablet PO Not Given BID [facility] Senna/Docusate Sodium 1 tab 09/13/24 09:00 09/13/24 08:01 Sennosides-Docusate Tablet PO Not Given DAILY [facility] PFSH Anesthesia Medical History Left carotid stenosis Chronic joint pain Spinal stenosis, lumbar region without neurogenic claudication Renal function test abnormal Cervical stenosis of spine Demyelinating disease Restless legs syndrome Chronic obstructive pulmonary disease, unspecified Gastro-esophageal reflux disease without esophagitis Personal history of transient ischemic attack (TIA), and cerebral infarction without residual deficits Mixed hyperlipidemia Pulmonary embolism on long-term anticoagulation therapy Surgical History Hx of colonoscopy History of esophagogastroduodenoscopy (EGD) with Dr. Wilburn 10 yrs ago at [facility] [place] S/P cholecystectomy S/P tonsillectomy and adenoidectomy H/O: hysterectomy S/P cervical spinal fusion S/P bilateral cataract extraction Family History Other Heart disease Social History Smoking and tobacco/nicotine status: former use of tobacco/nicotine Quit status (tobacco/nicotine): has quit using Former quit date comment: 10/08/23 Alcohol intake: never Substance/Drug Use: never Household members: spouse Marital status: Female Reproductive History Spontaneous abortions: No Data Anesthesia 09/13/24 04:47 09/13/24 04:47 Short CBC 09/12/24 09/13/24 Range/Units 16:47 04:47 WBC 7.87 8.28 (3.29-11.43) 10^3/uL Hgb 12.80 12.20 (11.27-16.99) g/dL Hct 40.4 39.1 (36-47) % MCV 97.1 97.0 (85-98) fl Plt Count 193 171 (157-399) 10^3/cmm Neut % (Auto) 69.0 68.8 % Neut # (Auto) 5.43 5.70 (1.8-7.7) 10^3/uL BMP 09/12/24 09/13/24 16:47 04:47 Sodium 138 139 Potassium 4.7 4.4 Chloride 104 104 Carbon Dioxide 27 28 BUN 20 19 Creatinine 1.2 H 1.2 H Glucose 121 H 133 H Calcium 8.1 L 7.9 L Liver Function 09/12/24 Range/Units 16:47 Total Bilirubin 0.2 (0.15-1.2) mg/dL AST 16 (0-32) U/L ALT 9 (0-33) U/L Alkaline Phosphatase 110 H (35-105) U/L Albumin 3.4 L (3.5-5.2) g/dL Blood Bank 09/13/24 04:47 Blood Type B Positive Rho(D) Type Rh positive Antibody Screen Negative Coags 09/12/24 16:47 PT 15.20 H INR 1.16 Cardiac Studies: Echocardiogram 05/01/22
[2024-09-13] MEDS: acetaminophen 1,000 MG/100 ML PIGGYBACK 400 MG IV (11:44)
[2024-09-13] MEDS: ketorolac 30 mg/mL INJ IVP (11:45)
--- NOTE | 2024-09-13 13:04 | W.PM.OPSUD ---
Surgery/Procedure H&P Update DATE OF PROCEDURE: September 13, 2024 DATE H&P PERFORMED: 09/12/24 H&P UPDATE INFORMATION: I have reviewed H&P completed within last 30 days, I have examined patient prior to procedure and No changes to prior documentation PREOP DIAGNOSIS: Left intertrochanteric femur fracture PRIMARY INDICATION FOR PROCEDURE: Left intertrochanteric femur fracture PLANNED PROCEDURE: Operation Date: 09/13/24 12:15 Proposed Procedures p Trochanteric Femoral Nail(Left) - Shahab Encarnacion DO
[2024-09-13] MEDS: clindamycin 600 MG/50 ML PREMIX 100 MG IV (13:08)
--- NOTE | 2024-09-13 13:25 | PC.SOCIAL ---
IMM Updated Updated pt on IMM. No questions voiced. Provided pt a copy. Initialed, dated, & timed a copy & placed in chart.
[2024-09-13] MEDS: tranexamic acid 1,000 mg/10mL SDV 1000 MG IV (13:50)
--- NOTE | 2024-09-13 14:38 | XR_ITS ---
WS: [id number] Left hip, AP and frog-leg views, 09/13/2024 Clinical Data: s/p L hip troch nail Comparison: Left hip and femur, 09/12/2024 Findings: The repair of the intertrochanteric fracture left hip involves an oblique femoral neck nail and a pro ximal intertrochanteric laly. The adjacent left hip and the soft tissues show only subcutaneous lateral sutures. XR/XR hip LT 2-3V wo/w pel* [id number] Impression: Internal fixation of intertrochanteric fracture left hip.
--- NOTE | 2024-09-13 14:39 | P.OP_ITS ---
Operative Report Date of procedure: September 13, 2024 Surgeon: Shahab Encarnacion DO Planning Management It Specialist: Gt Encarnacion PA-C: PA was necessary for assistance in this case with assistance with reduction, assistance with fracture fixation and implantation, wound closure and dressing application. Procedure: Procedure: Post-op diagnosis: Left?displaced intertrochanteric femur fracture Procedure done: ?Left?intertrochanteric femur fracture ORIF with cephalomedullary nail Implants: Velasquez gamma nail short 11 mm x 180 mm x 125 degree Lag screw 10.5 mm x 100?mm Distal?locking screw 5 mm x?35?mm Surgeon: Shahab Encarnacion DO Estimated blood?loss: 100 mL IV fluids: See anesthesia record Urine output: See anesthesia record Complications: See operative report Findings: See operative report narrative Condition: stable Disposition: Floor Brief History: Patient sustained a fall and was found to have a?Left intertrochanteric hip fx.?Pt has?been unable to bear weight,?Left?hip/lower extremity shortened and externally rotated.? At this point time Pt?was admitted by the hospitalist team and orthopedics was consulted.??Refer to consult note for detailed HPI.??We talked about treatment options as far as nonoperative and operative intervention. Recommend?Left?hip?trochanteric femur nail.??At this point time patient would?like to pursue surgical intervention for benefits of pain control and earlier mobilization.?? Patient understands the ins and outs of procedure, the risk benefits complication alternatives of surgical nonsurgical treatment options.? Understanding risk of surgery?pt?agrees to proceed with surgical intervention all questions answered.? Consent obtained. Procedure: Patient seen evaluated in the preoperative holding area.? Consent was obtained.? Correct extremity was then marked.? Once cleared by anesthesia and the hospitalist team patient was taken back to the operative suite.? Patient underwent anesthesia per the anesthesia department.? Once appropriately anesthetized patient was placed on a fracture [place] table.? Patient was appropriately secured to the bed.? All bony prominences were well-padded.? At this point time patient received appropriate preoperative antibiotics. Patient received preoperative TXA. final timeout was performed.? Prior to beginning surgery a standard closed reduction maneuver was placed on the [place] table and?large C-arm was brought in.? After performing a closed reduction maneuver there was able to achieve satisfactory reduction of?Left?intertrochanteric femur fracture.? Fracture site did not extend into the subtrochanteric region as result plan was for a short nail.?? This point time the right?lower extremity was then prepped and draped in standard orthopedic fashion. A standard?longitudinal incision was made just proximal to the greater?trochanter roughly 4 cm in?length sharp scalpel vision was made through skin and subcutaneous tissue.? I then utilized a blunt Law to split? fascia and mobilized directly down to the greater?trochanter.? I then inserted my starting guidewire which was placed appropriate starting position the tip of the greater?trochanter.? This was advanced in AP and?lateral films to be in center center position and advanced to the?level?lesser?trochanter.? This was confirmed to be in center center position on AP and?lateral imaging.? Once this was done I then introduced my opening reamer which was then subsequently guide pin removed.? I selected a 11 mm x 180 mm x 125 degree. At this point time the nail was then?loaded onto the [employer] gamma?trochanteric nail guide.? This was placed within the canal and confirmed with XR and the setscrew was then gently placed not?locked.? The nail was then impacted to appropriate depth .? At this point time I then inserted my?lag screw guide and subsequently made a small incision through skin and subcutaneous tissue splitting the IT band?longitudinally and the guide was placed directly onto bone.? Next I then subsequently placed the guidewire in center center position in the head with an appropriate tip to apex distance this was confirmed with multiple orthogonal images.? Once I was satisfied with my planned?lag screw placement I then measured which was?100?mm.? I then set my cannulated drill and subsequently reamed this into the head at appropriate depth.? I then had my rep open the 10.5 mm x?100?mm?lag screw which was then opened on the back table and subsequently screwed into place over my cannulated drill guide.? This was placed with excellent tip to apex distance.? Next I then utilized the compressing device and subsequently compressed my fracture after I?let off traction.? This had excellent fracture compression and opposition and closing down to my fracture?line.? Next I then?locked the nail by?locking my setscrew.? This point time the guidewire as well as the sleeve was then removed.? Next I plan for statically?locking the nail distally.? This triple sleeve was then placed a small stab incision was made blunt dissection directly down to bone and the guide sleeve was placed and?locked directly onto the bone.? I then inserted the drill bit and subsequently drilled bicortically measured appropriate?length screw and then placed a 35?mm distal interlocking screw and had excellent fixation was appropriate?length.? This point time is completed my construct I remove the outer jig and took final images of AP and?lateral of the?Left?intertrochanteric femur fracture which showed stable reduction and stable fixation.? Incision was then thoroughly irrigated.? Hemostasis was maintained with electrocautery.? I then once again thoroughly irrigated the incisions and then subsequently closed in?layered fashion of 0 Vicryl 2-0 Vicryl and kianna.? Silverlon dressings applied.? Patient was then awakened from anesthesia transported onto the hospital bed and taken to PACU in stable condition.? Patient tolerated procedure without complications. Disposition: Patient taken to PACU in stable condition.? Postoperatively,? Patient to receive appropriate discharge instructions as well as pain medication DVT prophylaxis postoperatively.? She will be allowed weightbearing as tolerated?Left?lower extremity.? Will receive appropriate postoperative antibiotics, PT/OT.? Patient to follow-up in the orthopedic office in 2 weeks.? Patients family understands and agrees with current plan.? All questions answe red.
--- NOTE | 2024-09-13 14:53 | W.PM.BPON ---
Date of Procedure: [September 13, 2024] Surgeon: [Dr. Encarnacion DO] Tankage Supervisor(s): [Gt Encarnacion PA-C] Procedure(s) performed: [Left hip intertrochanteric fracture ORIF with trochanteric nail] Findings of the procedure(s): [Displaced left hip intertrochanteric fracture. Procedure went well and as planned.] Estimated blood loss: [100 ml] Specimen(s) removed: [N/A] Post-operative diagnosis: [Displaced left hip intertrochanteric fracture]
--- NOTE | 2024-09-13 15:08 | ANE.PACU2 ---
Inpatient post-anesthesia follow up: Airway intact: Yes Vital signs: Temperature 97.9 F Pulse Rate 68 Respiratory Rate 19 Blood Pressure 157/73 Pulse Oximetry 93 Oxygen Delivery Me thod Room Air Oxygen Flow Rate Fraction of Inspir ed Oxygen Hydration adequate: Yes Nausea and vomiting: No Pain level: 1 Mental status: Baseline
--- NOTE | 2024-09-13 15:21 | PM.PACU ---
PACU note Narrative: Patient is a 79-year-old female just underwent a left hip ORIF with trochanteric femur nail. Pt transferred to PACU in stable condition. 1 of patient's dressings was a little saturated with blood so we removed it and put a new dressing on it. The rest the patient's dressings are dry and intact. pt is awake and alert. pt can wiggle toes. Distal pulses are palpable toes are warm and well-perfused. Cap refill is normal and under 2 seconds. Sensation to foot is intact. Pain is controlled. Exam: awake Disposition: back to floor
[2024-09-13] MEDS: pantoprazole DR 40 mg Tablet PO (17:10)
[2024-09-13] MEDS: calcium carb-vit d 600mg/400unit 1 Tablet 1 EACH PO (17:10)
[2024-09-13] MEDS: mupirocin oint 22 gm 1 APPLIC NASAL (17:10)
[2024-09-13] MEDS: iron polysaccharide complex 150 mg Capsule PO (17:10)
[2024-09-13] MEDS: carvedilol 25 mg Tablet PO (17:10)
[2024-09-13] MEDS: oxyCODONE 5 mg IR Tab/Cap PO (17:10)
[2024-09-13] MEDS: chlorhexidine gluconate 0.12% Btl 473 mL 30 ML MUCOUS MEM ×2 (17:11→20:23)
[2024-09-13] MEDS: tranexamic acid 1,000 MG/100 ML PREMIX 600 MG IV (20:24)
[2024-09-13] MEDS: clindamycin 900 MG/50 ML PREMIX 100 MG IV (20:39)
[2024-09-14] VITALS (11 sets, daily range): BP systolic 104–145; BP diastolic 59–87; PULSE 63–79; RESP 15–19; TEMP 36.4–37.8; O2SAT 94–97
[2024-09-14] MEDS: oxyCODONE 5 mg IR Tab/Cap PO ×3 (04:12→18:24)
[2024-09-14] MEDS: clindamycin 900 MG/50 ML PREMIX 100 MG IV ×2 (04:14→16:13)
[2024-09-14 04:43] LABS: Basophils % 0.1 %; Eosinophils % 0.1 %; Hematocrit 34.9 % (36-47); Lymphocytes # 1.3 10^3/uL (0.8-4.8); Lymphocytes % 12.1 %; Mean Corpuscular HGB Conc 31.5 g/dL (30-55); Mean Corpuscular Hemoglobin 30.6 pg (27-33); Mean Corpuscular Volume 97.2 fl (85-98); Mean Platelet Volume 11.7 fL (7.4-10.4); Monocytes # 0.9 10^3/uL (0.2-0.9); Monocytes % 7.8 %; Neutrophils # 8.74 10^3/uL (1.8-7.7); Neutrophils % 79.5 %; Nucleated Red Blood Cells % 0 %; Platelet Count 170 10^3/cmm (157-399); Red Blood Count 3.59 10^6/uL (3.85-5.65); Red Cell Distribution Width 13.6 % (12.1-15.1); White Blood Count 10.99 10^3/uL (3.29-11.43)
--- NOTE | 2024-09-14 04:57 | PM.PN ---
Subjective Subjective: Patient doing well Blood pressure slightly better with pain management Status post intervention Signs of dehydration improving no need to continue IV fluids Vitals/I&O/Wt Last Vital Signs Temp 98.2 F 09/13/24 15:34 Pulse 68 09/13/24 15:34 Resp 15 09/13/24 15:34 BP 151/73 09/13/24 15:34 Pulse Ox 93 09/13/24 15:34 O2 Del Method Room Air 09/13/24 15:34 09/13/24 09/13/24 09/13/24 06:59 14:59 22:59 Intake Total 50 / 50 50 / 100 Output Total 350 / 350 400 / 400 Balance -350 / -350 -350 / -350 50 / -300 Weight last 48 hrs Weight 77.139 kg Weight 80.371 kg Weight 79.379 kg Physical Exam Narrative: Nonfocal neuroexam Pleasant cooperative Gramajo catheter can be discontinued GCS 15 Pleasant cooperative S1, S2 Hemodynamic stable Signs of dehydration improving Urinary Catheter Management: Gramajo: Cath Placed During This Visit: yes Reason for Continuing Indwelling Catheter: Perioperative Use in Selected Surgeries Urinary Catheter Date of Insertion: 09/12/24 Urinary Catheter Time of Insertion: 19:47 Data 09/14/24 04:20 09/13/24 04:47 A&P Assessment and plan (1) Benign essential HTN: (2) 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: (3) Pulmonary embolism: (4) Renal cell carcinoma: Qualifiers: Laterality: left Qualified Code(s): C64.2 - Malignant neoplasm of left kidney, except renal pelvis (5) Closed fracture of left hip: Qualifiers: Encounter type: initial encounter Qualified Code(s): S72.002A - Fracture of unspecified part of neck of left femur, initial encounter for closed fracture (6) Chronic joint pain: (7) Left knee pain: Qualifiers: Chronicity: chronic Qualified Code(s): M25.562 - Pain in left knee; G89.29 - Other chronic pain (8) Neurologic gait disorder: Plan Awaiting SNF placement Status post hip intervention DVT prophylaxis Lovenox Currently on regular diet Optimize antihypertensive regimen Once patient has tolerating diet, can discontinue IV fluids May discontinue Gramajo catheter Opioids along bowel regimen Continue PT Attestations Medical Necessity Statement*: Awaiting placement Diagnoses Benign essential HTN I10 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 Z79.01 Pulmonary embolism I26.99 Renal cell carcinoma of left kidney C64.2 Laterality: left Closed fracture of left hip S72.002A Encounter type: initial encounter Chronic joint pain M25.50; G89.29 Chronic pain of left knee M25.562; G89.29 Chronicity: chronic Neurologic gait disorder R26.9
[2024-09-14 05:01] LABS: Anion Gap 13.7 (5-19); Blood Urea Nitrogen 28 mg/dL (8-23); Calcium 7.8 mg/dL (8.5-10.5); Carbon Dioxide 24 mmol/L (22-29); Chloride 103 mmol/L (98-107); Creatinine Clr Calc Pharmacy 38.1614; Glucose 123 mg/dL (65-115); Osmolality Calculated 289 mOsm/kg (285-295); Potassium 4.7 mmol/L (3.5-5.1); Sodium 136 mmol/L (136-145)
--- NOTE | 2024-09-14 06:27 | P.PN_ITS ---
Subjective 2 Subjective: Patient was seen and examined this morning pain is controlled with medications. She is awake and alert. Updated on surgery. A.m. labs reviewed hemoglobin 11. Goals getting up for therapy today. Will work with case management on discharge planning. Vitals/I&O/Wt Last Vital Signs Temp 98.4 F 09/14/24 04:06 Pulse 79 09/14/24 04:06 Resp 16 09/14/24 04:12 BP 123/72 09/14/24 04:06 Pulse Ox 97 09/14/24 04:12 O2 Del Method Room Air 09/14/24 04:06 09/13/24 09/13/24 09/14/24 14:59 22:59 06:59 Intake Total 50 / 50 700 / 750 170 / 920 Output Total 400 / 400 300 / 700 Balance -350 / -350 700 / 350 -130 / 220 Weight last 48 hrs Weight 184 lb 9.6 oz Weight 170 lb 1 oz Weight 177 lb 3 oz Weight 175 lb Physical Exam 2 Narrative: Examination left hip demonstrates patient is able to follow commands as well as dressing to the left hip is clean dry and intact normal postoperative swelling to the left hip patient has appropriate leg lengths she is able to wiggle toes plantarflex and dorsiflex ankle. Patient has baseline peripheral neuropathy no new change in her symptoms distally, distal pulses are palpable toes are warm well-perfused compartments are soft and compressible. Patient is able to tolerate gentle logroll examination. Urinary Catheter Management: Gramajo: Cath Placed During This Visit: yes Reason for Continuing Indwelling Catheter: Required Immobilization for Trauma or Surgery or Anesthesia Urinary Catheter Date of Insertion: 09/12/24 Urinary Catheter Time of Insertion: 19:47 Data 09/14/24 04:20 09/14/24 04:20 Xray Ortho: Radiologist's impression: Ordering Provider/Ordering MD: Shahab Encarnacion Date of Service: 09/13/24 Procedure(s): XR hip LT 2-3V wo/w pel* [id number] Accession Number(s): [id number] Report Number: [id number] WS: [id number] Left hip, AP and frog-leg views, 09/13/2024 Clinical Data: s/p L hip troch nail Comparison: Left hip and femur, 09/12/2024 Findings: The repair of the intertrochanteric fracture left hip involves an oblique femoral neck nail and a proximal intertrochanteric laly. The adjacent left hip and the soft tissues show only subcutaneous lateral sutures. XR/XR hip LT 2-3V wo/w pel* [id number] Impression: Internal fixation of intertrochanteric fracture left hip. A&P Assessment and plan (1) Fracture, intertrochanteric, left femur: Plan Postop day 1 : weight-bear as tolerated left lower extremity Resume regular diet Completed postoperative antibiotic Receive postoperative TXA PT/OT Pain control X-rays reviewed AM labs reviewed DVT prophylaxis per primary Ice as needed for pain and swelling Dressings clean dry and intact can change as needed Case management for discharge planning Orthopedics will continue to follow Attestations 2 Medical Necessity Statement*: Ongoing care status post left hip intertrochanteric femur fracture status post fixation Coding Level of Care Code Acute Code for g Fwd Diagnoses Fracture, intertrochanteric, left femur S72.142A Time Spent (min) 15
[2024-09-14] MEDS: iron polysaccharide complex 150 mg Capsule PO ×2 (09:05→17:52)
[2024-09-14] MEDS: multivitamin therapeutic Tablet 1 TAB PO (09:05)
[2024-09-14] MEDS: calcium carb-vit d 600mg/400unit 1 Tablet 1 EACH PO ×2 (09:05→17:53)
[2024-09-14] MEDS: sennosides-docusate Tablet 1 TAB PO (09:05)
[2024-09-14] MEDS: carvedilol 25 mg Tablet PO ×2 (09:05→17:53)
[2024-09-14] MEDS: pantoprazole DR 40 mg Tablet PO ×2 (09:05→17:53)
[2024-09-14] MEDS: hyDRALAzine 50 mg Tablet 100 MG PO ×3 (09:06→20:45)
[2024-09-14] MEDS: mupirocin oint 22 gm 1 APPLIC NASAL ×2 (09:06→17:53)
[2024-09-14] MEDS: chlorhexidine gluconate 0.12% Btl 473 mL 30 ML MUCOUS MEM ×4 (09:06→20:46)
--- NOTE | 2024-09-14 09:09 | PC.NURSE ---
Patient states arelto is taken with last meal of the day. Patient refused medication this am.
[2024-09-14] MEDS: sodium chloride 0.9% 1,000 ML 100 ML IV ×2 (12:23→22:50)
[2024-09-14] MEDS: rivaroxaban 10 mg Tablet 20 MG PO (17:53)
[2024-09-14] MEDS: morphine 4 mg/mL SDV 1 mL 2 MG IVP (19:24)
--- NOTE | 2024-09-14 19:33 | PC.NURSE ---
Gramajo removed at 1300. Patient up to bedside commode at 1700. voided nothing. Bladder scanned patient, 187 ml present
[2024-09-14] MEDS: cyclobenzaprine 10 mg Tablet 5 MG PO (22:48)
[2024-09-15] VITALS (12 sets, daily range): BP systolic 126–172; BP diastolic 64–91; PULSE 67–76; RESP 16–20; TEMP 36.7–37.8; O2SAT 92–96
[2024-09-15] MEDS: oxyCODONE 5 mg IR Tab/Cap PO ×3 (01:29→21:50)
--- NOTE | 2024-09-15 03:07 | PC.NURSE ---
rodriguez placement order entred in error; rodriguez not placed at this time.
[2024-09-15 04:36] LABS: Basophils % 0.3 %; Eosinophils # 0.2 10^3/uL (0.0-0.8); Eosinophils % 1.8 %; Hematocrit 31.4 % (36-47); Lymphocytes # 2.2 10^3/uL (0.8-4.8); Lymphocytes % 23.5 %; Mean Corpuscular HGB Conc 31.5 g/dL (30-55); Mean Corpuscular Hemoglobin 30.8 pg (27-33); Mean Corpuscular Volume 97.8 fl (85-98); Mean Platelet Volume 11.5 fL (7.4-10.4); Monocytes # 0.8 10^3/uL (0.2-0.9); Monocytes % 8.3 %; Neutrophils # 6.26 10^3/uL (1.8-7.7); Neutrophils % 65.7 %; Nucleated Red Blood Cells % 0 %; Platelet Count 152 10^3/cmm (157-399); Red Blood Count 3.21 10^6/uL (3.85-5.65); Red Cell Distribution Width 13.9 % (12.1-15.1); White Blood Count 9.53 10^3/uL (3.29-11.43)
[2024-09-15 04:57] LABS: Anion Gap 11.1 (5-19); Blood Urea Nitrogen 30 mg/dL (8-23); Calcium 7.7 mg/dL (8.5-10.5); Carbon Dioxide 24 mmol/L (22-29); Chloride 103 mmol/L (98-107); Glucose 97 mg/dL (65-115); Osmolality Calculated 282 mOsm/kg (285-295); Potassium 5.1 mmol/L (3.5-5.1); Sodium 133 mmol/L (136-145)
[2024-09-15 04:59] LABS: Creatinine Clr Calc Pharmacy 41.0969
[2024-09-15] MEDS: morphine 4 mg/mL SDV 1 mL 2 MG IVP (06:14)
[2024-09-15] MEDS: multivitamin therapeutic Tablet 1 TAB PO (09:26)
[2024-09-15] MEDS: calcium carb-vit d 600mg/400unit 1 Tablet 1 EACH PO ×2 (09:26→18:18)
[2024-09-15] MEDS: hyDRALAzine 50 mg Tablet 100 MG PO ×3 (09:26→21:50)
[2024-09-15] MEDS: iron polysaccharide complex 150 mg Capsule PO ×2 (09:26→18:18)
[2024-09-15] MEDS: cyclobenzaprine 10 mg Tablet 5 MG PO ×2 (09:26→21:50)
[2024-09-15] MEDS: mupirocin oint 22 gm 1 APPLIC NASAL ×2 (09:27→18:19)
[2024-09-15] MEDS: chlorhexidine gluconate 0.12% Btl 473 mL 30 ML MUCOUS MEM ×4 (09:27→21:52)
[2024-09-15] MEDS: sennosides-docusate Tablet 1 TAB PO (09:27)
[2024-09-15] MEDS: pantoprazole DR 40 mg Tablet PO ×2 (09:27→18:18)
[2024-09-15] MEDS: carvedilol 25 mg Tablet PO ×2 (09:27→18:18)
[2024-09-15] MEDS: sodium chloride 0.9% 1,000 ML 100 ML IV (09:29)
--- NOTE | 2024-09-15 09:37 | USR_ITS ---
PROCEDURE INFORMATION: Exam: US Duplex Left Lower Extremity Veins, Limited Exam date and time: 09/15/2024 10:59 AM Age: 79 years old Clinical indication: Pain; Leg, lower; Left; Prior surgery; Surgery date: 3-7 days post-operative; Surgery type: Lt hip surgery; Additional info: Left leg cramps after surgery TECHNIQUE: Imaging protocol: Real-time duplex ultrasound of the left extremity with 2-D shafer scale, color Doppler flow and spectral waveform analysis including responses to compression and other maneuvers (when performed) with image documentation. Limited exam focused on the left lower extremity veins. COMPARISON: CT hip LT wo con* [id number] 09/12/2024 5:09 PM FINDINGS: The common femoral, femoral, popliteal and posterior tibial veins are patent. There is appropriate compression and augmentation. Doppler interogation reveals venous blood flow. US/[place] [id number] IMPRESSION: No evidence of deep venous thrombosis.
--- NOTE | 2024-09-15 09:37 | PM.PN ---
Subjective Subjective: Patient complaining of cramps in her left leg, stating that it is twitching, causing pain Gramajo catheter removed No overnight events Hemodynamically stable, hypertension with uncontrolled pain I request venous Doppler of left leg Vitals/I&O/Wt Last Vital Signs Temp 98.3 F 09/15/24 08:08 Pulse 72 09/15/24 09:04 Resp 16 09/15/24 09:04 BP 172/76 09/15/24 08:08 Pulse Ox 96 09/15/24 09:04 O2 Del Method Room Air 09/15/24 09:04 09/14/24 09/15/24 09/15/24 22:59 06:59 14:59 Intake Total 1410 / 1650 100 / 1750 1480 / 1480 Balance 1410 / 1650 100 / 1750 1480 / 1480 Weight last 48 hrs Weight 84.731 kg Weight 83.733 kg Physical Exam Narrative: Patient is pleasant cooperative Lower extremity no significant swelling, no sign of stroke Gramajo catheter removed Pleasant cooperative nonfocal neuroexam S1, S2 currently on room air Pleasant during my evaluation No audible stridor or wheezing Urinary Catheter Management: Gramajo: Cath Placed During This Visit: yes Reason for Continuing Indwelling Catheter: Required Immobilization for Trauma or Surgery or Anesthesia Urinary Catheter Date of Insertion: 09/12/24 Urinary Catheter Time of Insertion: 19:47 Data 09/15/24 04:14 09/15/24 04:14 A&P Assessment and plan (1) Benign essential HTN: (2) Current use of nursing home anticoagulation: (3) Pulmonary embolism: (4) Renal cell carcinoma: Qualifiers: Laterality: left Qualified Code(s): C64.2 - Malignant neoplasm of left kidney, except renal pelvis (5) Closed fracture of left hip: Qualifiers: Encounter type: initial encounter Qualified Code(s): S72.002A - Fracture of unspecified part of neck of left femur, initial encounter for closed fracture (6) Chronic joint pain: (7) Left knee pain: Qualifiers: Chronicity: chronic Qualified Code(s): M25.562 - Pain in left knee; G89.29 - Other chronic pain (8) Neurologic gait disorder: Plan Awaiting SNF placement Will request venous Doppler left leg she is complaining of cramps after surgery Hemoglobin stable Continue rivaroxaban Coreg No sign of A-fib RVR Patient is getting opioids along bowel regimen Check CPK magnesium and phosphorus For hypertension added lisinopril 10 mg daily, discontinue IV fluids Attestations Medical Necessity Statement*: Continue medical management Diagnoses Benign essential HTN I10 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
[2024-09-15 09:58] LABS: Creatine Phosphokinase 131 U/L (26-192); Magnesium 1.8 mg/dL (1.7-2.3); Phosphorus 3.1 mg/dL (2.5-4.5)
[2024-09-15 10:00] LABS: Hematocrit 31.9 % (36-47)
--- NOTE | 2024-09-15 15:10 | P.PN_ITS ---
Subjective 2 Subjective: Patient seen and examined with family at bedside today she is gotten up with therapy. Patient's been having muscle spasms on a muscle relaxer now. Patient planning on rehab facility at discharge. No acute events overnight. Vitals/I&O/Wt Last Vital Signs Temp 98.0 F 09/15/24 11:42 Pulse 67 09/15/24 11:42 Resp 18 09/15/24 13:18 BP 146/70 09/15/24 11:42 Pulse Ox 93 09/15/24 13:18 O2 Del Method Room Air 09/15/24 11:42 09/15/24 09/15/24 09/15/24 06:59 14:59 22:59 Intake Total 100 / 1750 1720 / 1720 Balance 100 / 1750 1720 / 1720 Weight last 48 hrs Weight 186 lb 12.8 oz Weight 184 lb 9.6 oz Physical Exam 2 Narrative: Examination left hip demonstrates patient is able to follow commands as well as dressing to the left hip is clean dry and intact normal postoperative swelling to the left hip patient has appropriate leg lengths she is able to wiggle toes plantarflex and dorsiflex ankle. Patient has baseline peripheral neuropathy no new change in her symptoms distally, distal pulses are palpable toes are warm well-perfused compartments are soft and compressible. Patient is able to tolerate gentle logroll examination. Urinary Catheter Management: Gramajo: Cath Placed During This Visit: yes Reason for Continuing Indwelling Catheter: Required Immobilization for Trauma or Surgery or Anesthesia Urinary Catheter Date of Insertion: 09/12/24 Urinary Catheter Time of Insertion: 19:47 Data 09/15/24 09:54 09/15/24 04:14 A&P Assessment and plan (1) Fracture, intertrochanteric, left femur: Plan Postop day 2 : weight-bear as tolerated left lower extremity Resume regular diet PT/OT Pain control X-rays reviewed AM labs reviewed DVT prophylaxis per primary Ice as needed for pain and swelling Dressings clean dry and intact can change as needed Case management for discharge planning No further orthopedic surgical invention is time orthopedic surgery team will sign off and follow peripherally. Patient stable for discharge from orthopedic standpoint this point time orthopedic surgery team will sign off and follow peripherally if there is any question pertaining patient care for for contact orthopedics on-call. Orthopedic discharge instructions well as medications DVT prophylaxis in chart patient follow-up in orthopedics in 2 weeks. Patient and family understands and agrees with current plan. All questions answered. Thank you for allow me to partake in the care of this patient. Attestations 2 Medical Necessity Statement*: Status post left hip trochanteric femur nail ongoing postoperative care Coding Level of Care Code Acute Code for Regineg Fwd Diagnoses Fracture, intertrochanteric, left femur S72.142A Time Spent (min) 20
[2024-09-15] MEDS: rivaroxaban 10 mg Tablet 20 MG PO (18:18)
[2024-09-15] MEDS: TRAMadol 50 mg Tablet PO ×2 (18:28→23:07)
[2024-09-16] VITALS (8 sets, daily range): BP systolic 107–174; BP diastolic 62–89; PULSE 68–90; RESP 15–18; TEMP 36.6–37.1; O2SAT 92–96
--- NOTE | 2024-09-16 02:46 | PC.NURSE ---
Order for oxycodone IR edited to reflect instructions present in label comment.
--- NOTE | 2024-09-16 02:58 | PC.NURSE ---
Pt used call light to let this nurse know she was having pain and needed some pain medicine. This nurse left the room to retrieve PRN pain medicine. This nurse returned to the room with two oxycodone IR per the prn order and found the patient resting with her eyes closed with even snoring respirations. This nurse then exited the room and closed the door to allow the patient to continue to rest.
[2024-09-16 06:12] LABS: Basophils % 0.4 %; Eosinophils # 0.2 10^3/uL (0.0-0.8); Eosinophils % 1.9 %; Hematocrit 31.7 % (36-47); Lymphocytes % 25.8 %; Mean Corpuscular HGB Conc 30.9 g/dL (30-55); Mean Corpuscular Hemoglobin 30.5 pg (27-33); Mean Corpuscular Volume 98.8 fl (85-98); Mean Platelet Volume 11.4 fL (7.4-10.4); Monocytes # 0.7 10^3/uL (0.2-0.9); Monocytes % 8.4 %; Neutrophils # 4.91 10^3/uL (1.8-7.7); Neutrophils % 62.9 %; Nucleated Red Blood Cells % 0 %; Platelet Count 166 10^3/cmm (157-399); Red Blood Count 3.21 10^6/uL (3.85-5.65); Red Cell Distribution Width 13.8 % (12.1-15.1); White Blood Count 7.82 10^3/uL (3.29-11.43)
[2024-09-16 06:41] LABS: Anion Gap 13.2 (5-19); Blood Urea Nitrogen 27 mg/dL (8-23); Calcium 7.8 mg/dL (8.5-10.5); Carbon Dioxide 25 mmol/L (22-29); Chloride 106 mmol/L (98-107); Creatinine Clr Calc Pharmacy 40.6609; Glucose 86 mg/dL (65-115); Osmolality Calculated 294 mOsm/kg (285-295); Potassium 4.2 mmol/L (3.5-5.1); Sodium 140 mmol/L (136-145)
[2024-09-16] MEDS: hyDRALAzine 50 mg Tablet 100 MG PO ×2 (08:08→20:08)
[2024-09-16] MEDS: iron polysaccharide complex 150 mg Capsule PO ×2 (08:08→17:50)
[2024-09-16] MEDS: calcium carb-vit d 600mg/400unit 1 Tablet 1 EACH PO ×2 (08:08→17:50)
[2024-09-16] MEDS: pantoprazole DR 40 mg Tablet PO ×2 (08:08→17:50)
[2024-09-16] MEDS: carvedilol 25 mg Tablet PO ×2 (08:08→17:50)
[2024-09-16] MEDS: acetaminophen 500 mg Tablet PO (08:08)
[2024-09-16] MEDS: TRAMadol 50 mg Tablet PO ×3 (08:09→22:53)
[2024-09-16] MEDS: multivitamin therapeutic Tablet 1 TAB PO (08:09)
[2024-09-16] MEDS: cyclobenzaprine 10 mg Tablet 5 MG PO ×2 (08:09→17:51)
[2024-09-16] MEDS: sennosides-docusate Tablet 1 TAB PO (08:09)
[2024-09-16] MEDS: mupirocin oint 22 gm 1 APPLIC NASAL (08:13)
[2024-09-16] MEDS: chlorhexidine gluconate 0.12% Btl 473 mL 30 ML MUCOUS MEM ×2 (08:14→20:08)
--- NOTE | 2024-09-16 09:51 | PC.SOCIAL ---
IMM Updated Updated pt on IMM. No questions voiced. Provided pt a copy. Initialed, dated, & timed copy in chart.
--- NOTE | 2024-09-16 10:53 | PC.CHAP ---
Pastoral Care Encounter/Spiritual Assessment Type of Contact [] Declined health specialist visit [] Patient/Family/Request visit [] Outpatient visit [] Follow-up visit [] Physician referral [] Code/Alert [x] Routine visit [] Staff referral [] Actively dying [] Patient sleeping [] Family support [] [] Out of room [] Palliative care [] [] Receiving care in room [] Pre-surgical visit [] Trauma [] Long length of stay [] ICU visit [] Other: Relational/Emotional Strength [] Patient feels connected with others/family/visitors/staff [] Distress [] Loneliness/isolation [] Abandonment Spirituality of Patient [x] Person of Anais [] Attends Spiritism of their Anais [x] Believes in Prayer [] Reads Bible or Denominational materials [] There are Spiritual issues to be addressed Aircraft Structural Fitter Interventions [x] Prayer [x] Active listening [] Non-anxious presence [] Spiritual/emotional support [] Crisis/trauma care [] Spiritual counseling [] Bereavement support [] Provided bereavement packet [x] Provided Bible/devotional materials [] Provided toy/stuffed animal, coloring book to patient or family member [] Provided Communion [] Anointing/[place] [] Salvation [x] Completed spiritual assessment [] Other: Impact on Illness or Injury [] Angry [] Fearful [] Anxious [] Often cries [] Exhaustion [] Unable to work [] Unable to attend christianity [] Unable to walk/stand [] Unable to read [] Unable to drive [] Unable to eat/drink [] Unable to sleep [] Unable to be with family [] Patient intubated [] Other: Summary Time spent with patient 10 min
--- NOTE | 2024-09-16 12:00 | P.PN_ITS ---
Subjective 2 Subjective: Patient is awaiting placement Patient worked with PT Hemodynamically stable Creatinine improved to 1.3 No sign of DVT Vitals/I&O/Wt Last Vital Signs Temp 98.0 F 09/16/24 08:00 Pulse 68 09/16/24 08:00 Resp 18 09/16/24 08:00 BP 174/77 09/16/24 08:00 Pulse Ox 94 09/16/24 08:00 O2 Del Method Room Air 09/16/24 08:00 09/15/24 09/16/24 09/16/24 22:59 06:59 14:59 Intake Total 1360 / 3080 240 / 3320 240 / 240 Balance 1360 / 3080 240 / 3320 240 / 240 Weight last 48 hrs Weight 81.828 kg Weight 84.731 kg Physical Exam 2 Narrative: Awake and alert GCS 15 Able to work with PT Pleasant cooperative Nonfocal neuroexam Hypertensive Urinary Catheter Management: Gramajo: Cath Placed During This Visit: yes Reason for Continuing Indwelling Catheter: Required Immobilization for Trauma or Surgery or Anesthesia Urinary Catheter Date of Insertion: 09/12/24 Urinary Catheter Time of Insertion: 19:47 Data 09/16/24 05:48 09/16/24 05:48 A&P Assessment and plan (1) Benign essential HTN: (2) Current use of residential anticoagulation: (3) Pulmonary embolism: (4) Renal cell carcinoma: Qualifiers: Laterality: left Qualified Code(s): C64.2 - Malignant neoplasm of left kidney, except renal pelvis (5) Closed fracture of left hip: Qualifiers: Encounter type: initial encounter Qualified Code(s): S72.002A - Fracture of unspecified part of neck of left femur, initial encounter for closed fracture (6) Chronic joint pain: (7) Left knee pain: Qualifiers: Chronicity: chronic Qualified Code(s): M25.562 - Pain in left knee; G89.29 - Other chronic pain (8) Neurologic gait disorder: Plan At this antihypertensive regimen Continue DVT prophylaxis Hemoglobin stable Hypertensive Recommend PT Awaiting placement No signs of DVT Continue regular diet Creatinine improving Attestations 2 Medical Necessity Statement*: Awaiting placement Diagnoses Benign essential HTN I10 Current use of long term care social worker anticoagulation Z79.01 Pulmonary embolism I26.99 Renal cell carcinoma of left kidney C64.2 Laterality: left Closed fracture of left hip S72.002A Encounter type: initial encounter Chronic joint pain M25.50; G89.29 Chronic pain of left knee M25.562; G89.29 Chronicity: chronic Neurologic gait disorder R26.9
[2024-09-16] MEDS: oxyCODONE 5 mg IR Tab/Cap PO (15:04)
--- NOTE | 2024-09-16 15:42 | PC.OT ---
OT TREATMENT ATTEMPTED TWICE TODAY. 1355 PATIENT SLEEPING SOUNDLY 1535 PATIENT BP IS VERY LOW PER LOAN ASSISTANT AND PATIENT REPORTS THAT SHE HAS ALREADY PERFORMED GROOMING AND WOULD LIKE TO REST AT THIS TIME.
[2024-09-16] MEDS: rivaroxaban 10 mg Tablet 20 MG PO (17:50)
[2024-09-17 01:58] VITALS: RESP 18
[2024-09-17] MEDS: oxyCODONE 5 mg IR Tab/Cap PO (01:58)
[2024-09-17 04:00] VITALS: BP 136/74; PULSE 80; RESP 17; TEMP 37; O2SAT 93
[2024-09-17 05:53] LABS: Anion Gap 11.5 (5-19); Carbon Dioxide 26 mmol/L (22-29); Chloride 104 mmol/L (98-107); Creatinine Clr Calc Pharmacy 43.6219; Glucose 114 mg/dL (65-115); Potassium 4.5 mmol/L (3.5-5.1); Sodium 137 mmol/L (136-145)
[2024-09-17 06:09] LABS: Blood Urea Nitrogen 25 mg/dL (8-23); Calcium 7.7 mg/dL (8.5-10.5); Osmolality Calculated 289 mOsm/kg (285-295)
[2024-09-17 08:00] VITALS: BP 84/60; PULSE 85; RESP 18; TEMP 36.4; O2SAT 93
[2024-09-17] MEDS: pantoprazole DR 40 mg Tablet PO (08:37)
[2024-09-17] MEDS: calcium carb-vit d 600mg/400unit 1 Tablet 1 EACH PO (08:37)
[2024-09-17] MEDS: cyclobenzaprine 10 mg Tablet 5 MG PO (08:37)
[2024-09-17] MEDS: multivitamin therapeutic Tablet 1 TAB PO (08:37)
[2024-09-17] MEDS: lisinopril 10 mg Tablet PO (08:37)
[2024-09-17] MEDS: carvedilol 25 mg Tablet PO (08:37)
[2024-09-17] MEDS: iron polysaccharide complex 150 mg Capsule PO (08:38)
[2024-09-17] MEDS: sennosides-docusate Tablet 1 TAB PO (08:38)
[2024-09-17] MEDS: chlorhexidine gluconate 0.12% Btl 473 mL 30 ML MUCOUS MEM (08:39)
[2024-09-17] MEDS: mupirocin oint 22 gm 1 APPLIC NASAL (08:39)
[2024-09-17] MEDS: TRAMadol 50 mg Tablet PO ×2 (08:44→13:22)
[2024-09-17 09:09] VITALS: PULSE 81; RESP 16; O2SAT 95
--- NOTE | 2024-09-17 10:46 | PM.DCS ---
Discharge Providers Date of Admission: 09/12/24 17:28 Date of Discharge: September 17, 2024 Attending Provider at Admission: Maycol Odom MD Attending Provider at Discharge: Maycol Odom MD Primary Care Provider: William Reyna DO Diagnoses at Discharge Discharge Diagnosis (1) Benign essential HTN: Status: Chronic (2) Current use of shelter anticoagulation: Status: Acute (3) Pulmonary embolism: Status: Acute (4) Renal cell carcinoma: Status: Acute Qualifiers: Laterality: left Qualified Code(s): C64.2 - Malignant neoplasm of left kidney, except renal pelvis (5) Closed fracture of left hip: Status: Acute Qualifiers: Encounter type: initial encounter Qualified Code(s): S72.002A - Fracture of unspecified part of neck of left femur, initial encounter for closed fracture (6) Chronic joint pain: Status: Acute (7) Left knee pain: Status: Acute Qualifiers: Chronicity: chronic Qualified Code(s): M25.562 - Pain in left knee; G89.29 - Other chronic pain (8) Neurologic gait disorder: Status: Acute Reason for Visit Reason for Visit: fall, left hip pain Hospital Course Hospital Course 79-year-old female who present to the hospital after sustaining a fall which she is attributing to her neuropathy, Dr. Encarnacion was consulted for surgical intervention, patient went for ORIF 09/13, no postop complications, patient started working with PT, no BM however patient is not endorsing feeling constipated hemoglobin has remained stable she has chronic kidney disease, Creatinine seems to be around 1-1.3 echo shows EF 65% with grade 1 diastolic function, she is being [facility] a [facility]. Continue chronic renal disease I will reduce the dose of lisinopril to 10 mg instead of twice a day 20 mg regimen She will continue her Xarelto Physical Exam Narrative: Awake and alert GCS 15 Pleasant cooperative nonfocal neuroexam hemodynamically stable Pleasant cooperative Currently on room air Urinary Catheter Management: Gramajo: Cath Placed During This Visit: yes, but has since been removed by the nurse Reason for Continuing Indwelling Catheter: Decision to DC Catheter Urinary Catheter Date of Insertion: 09/12/24 Urinary Catheter Time of Insertion: 19:47 Date Urinary Catheter Removed: 09/14/24 Time Urinary Catheter Discontinued: 09:00 Discharge Data Studies Completed and Pending Completed Studies During Hospitalization Category Date Time Status CT hip LT wo con* [id number] Stat Cat Scan 09/12/24 16:39 Completed CXRP [XR chest 1V portable [id number]] Stat Exams 09/12/24 15:56 Completed XR femur LT min 2V* [id number] Stat Exams 09/12/24 16:39 Completed XR hip LT 2-3V wo/w pel* [id number] Routine Exams 09/13/24 14:38 Completed XR hip LT 2-3V wo/w pel* [id number] Stat Exams 09/12/24 15:56 Completed XR knee LT 1-2V [id number] Stat Exams 09/12/24 16:39 [place] [id number] Routine Ultrasound 09/15/24 09:37 Completed Radiology Impressions Chest X-Ray 09/12/24 15:56 Impression: Atherosclerosis. Femur X-Ray 09/12/24 16:39 IMPRESSION: Acute intratrochanteric fracture left hip. Hip CT 09/12/24 16:39 IMPRESSION: Acute comminuted intertrochanteric fracture left hip. Knee X-Ray 09/12/24 16:39 IMPRESSION: Advanced degenerative changes most pronounced within the medial knee compartment. No acute bony abnormalities. Hip/Pelvis X-Ray 09/13/24 14:38 Impression: Internal fixation of intertrochanteric fracture left hip. Venous Duplex 09/15/24 09:37 IMPRESSION: No evidence of deep venous thrombosis. Laboratory Results WBC 7.82 10^3/uL (3.29-11.43) 09/16/24 05:48 RBC 3.21 10^6/uL (3.85-5.65) L 09/16/24 05:48 Hgb 9.80 g/dL (11.27-16.99) L 09/16/24 05:48 Hct 31.7 % (36-47) L 09/16/24 05:48 MCV 98.8 fl (85-98) H 09/16/24 05:48 MCH 30.5 pg (27-33) 09/16/24 05:48 MCHC 30.9 g/dL (30-55) 09/16/24 05:48 RDW 13.8 % (12.1-15.1) 09/16/24 05:48 Plt Count 166 10^3/cmm (157-399) 09/16/24 05:48 MPV 11.4 fL (7.4-10.4) H 09/16/24 05:48 Neut % (Auto) 62.9 % 09/16/24 05:48 Lymph % (Auto) 25.8 % 09/16/24 05:48 [place] % (Auto) 8.4 % 09/16/24 05:48 Eos % (Auto) 1.9 % 09/16/24 05:48 Baso % (Auto) 0.4 % 09/16/24 05:48 Neut # (Auto) 4.91 10^3/uL (1.8-7.7) 09/16/24 05:48 Lymph # (Auto) 2.0 10^3/uL (0.8-4.8) 09/16/24 05:48 [place] # (Auto) 0.7 10^3/uL (0.2-0.9) 09/16/24 05:48 Eos # (Auto) 0.2 10^3/uL (0.0-0.8) 09/16/24 05:48 Baso # (Auto) 0.0 10^3/uL (0.0-0.1) 09/16/24 05:48 Nucleated RBC % (auto) 0 % 09/16/24 05:48 Nucleated RBCs # 0.0 /100WBC 09/16/24 05:48 PT 15.20 SECONDS (12.1-14.9) H 09/12/24 16:47 INR 1.16 (0.8-1.2) 09/12/24 16:47 Sodium 137 mmol/L (136-145) 09/17/24 05:22 Potassium 4.5 mmol/L (3.5-5.1) 09/17/24 05:22 Chloride 104 mmol/L (98-107) 09/17/24 05:22 Carbon Dioxide 26 mmol/L (22-29) 09/17/24 05:22 Anion Gap 11.5 (5-19) 09/17/24 05:22 BUN 25 mg/dL (8-23) H 09/17/24 05:22 Creatinine 1.2 mg/dL (0.5-0.9) H 09/17/24 05:22 GFR Calculation Not Reportable 09/17/24 05:22 Glucose 114 mg/dL (65-115) 09/17/24 05:22 Calculated Osmolality 289 mOsm/kg (285-295) 09/17/24 05:22 Calcium 7.7 mg/dL (8.5-10.5) L 09/17/24 05:22 Phosphorus 3.1 mg/dL (2.5-4.5) 09/15/24 04:14 Magnesium 1.8 mg/dL (1.7-2.3) 09/15/24 04:14 Total Bilirubin 0.2 mg/dL (0.15-1.2) 09/12/24 16:47 AST 16 U/L (0-32) 09/12/24 16:47 ALT 9 U/L (0-33) 09/12/24 16:47 Alkaline Phosphatase 110 U/L (35-105) H 09/12/24 16:47 Creatine Kinase 131 U/L (26-192) 09/15/24 04:14 Total Protein 6.2 g/dL (6.6-8.7) L 09/12/24 16:47 Albumin 3.4 g/dL (3.5-5.2) L 09/12/24 16:47 Globulin 2.8 g/dL (1.3-4.6) 09/12/24 16:47 Vitamin B12 249 pg/mL (232-1245) 09/12/24 16:47 Blood Type B Positive 09/13/24 04:47 Rho(D) Type Rh positive 09/13/24 04:47 Antibody Screen Negative 09/13/24 04:47 Vitals Last Vital Signs Temp 97.6 F 09/17/24 08:00 Pulse 81 09/17/24 09:09 Resp 16 09/17/24 09:09 BP 84/60 09/17/24 08:00 Pulse Ox 95 09/17/24 09:09 O2 Del Method Room Air 09/17/24 09:09 Discharge Plan Discharge Patient Disposition: Xfer SNF Condition: Stable Prescriptions: New oxycodone 5 mg tablet 5 mg PO Q6H PRN (Reason: pain postop) 7 Days Qty: 28 0RF calcium carbonate-vitamin D3 [Calcium 600 + D(3)] 600 mg-10 mcg (400 unit) tablet 1 tab PO DAILY 30 Days Qty: 30 0RF ondansetron 4 mg tablet,disintegrating 4 mg PO Q8H 3 Days Qty: 9 0RF lisinopril 10 mg Tablet 10 mg PO DAILY Qty: 30 0RF Continued magnesium citrate Solution 300 ml PO DAILY Qty: 296 1RF Rx Instructions: 300ml daily x 2 doses lactulose 10 gram/15 mL solution 20 g PO BID Qty: 473 2RF docusate sodium 100 mg capsule 100 mg PO BID PRN (Reason: Constipation) cholecalciferol (vitamin D3) 1,250 mcg (50,000 unit) capsule 1,250 mcg PO .WEEKLY Qty: 12 3RF Rx Instructions: TAKE ONE CAPSULE BY MOUTH, ONE TIME A WEEK. pantoprazole 40 mg tablet,delayed release (DR/EC) See Rx Instructions .ROUTE .COMPLEX Qty: 180 3RF Hold Instructions: Resume on 08/31/22. Dose Instruction: TAKE 1 TABLET BY MOUTH EVERY DAY Rx Instructions: TAKE 1 TABLET BY MOUTH TWO TIMES A DAY. carvedilol 25 mg tablet See Rx Instructions .ROUTE .COMPLEX Qty: 180 3RF Dose Instruction: TAKE ONE TABLET BY MOUTH TWICE DAILY Rx Instructions: TAKE ONE TABLET BY MOUTH TWICE DAILY Xarelto 20 mg tablet See Rx Instructions .ROUTE .COMPLEX Qty: 30 5RF Hold Instructions: Resume on 07/23/22. Dose Instruction: TAKE 1 TABLET BY MOUTH EVERY DAY with evening meal Rx Instructions: TAKE 1 TABLET BY MOUTH EVERY DAY with evening meal tramadol 50 mg tablet 100 mg PO Q8H PRN (Reason: pain) 30 Days Qty: 180 4RF hydralazine 100 mg tablet See Rx Instructions .ROUTE .COMPLEX Qty: 90 3RF Dose Instruction: TAKE 1 TABLET BY MOUTH THREE TIMES DAILY Rx Instructions: TAKE 1 TABLET BY MOUTH THREE TIMES DAILY Discontinued lisinopril 20 mg tablet See Rx Instructions .ROUTE .COMPLEX Qty: 120 3RF Dose Instruction: TAKE TWO TABLETS BY MOUTH TWICE DAILY Rx Instructions: TAKE TWO TABLETS BY MOUTH TWICE DAILY Discharge Orders: Discharge Order (Routine); Ordered 09/17/24 Ordered By: Maycol Odom Referrals: William Reyna DO [Primary Care Provider] - Shahab Encarnacion DO [Physician] - 2 weeks Discharge Diet: Regular Discharge Activity: Limit activity as instructed and Use walker/crutches as instructed Patient Instructions: Acute Wound Care (DC), Post Anesthesia Care Activity Restrictions/Additional Instructions: Orthopedic discharge instructions: Patient may weight-bear as tolerated to the operative lower extremity Take DVT prophylaxis (blood thinner as prescribed ) Take pain medication as prescribed Take antinausea medication as needed Supplement with Citracal vitamin D for bone health and healing Ice as needed for pain and swelling Leave Silverlon bandage dressing on for 7 days after that may remove, rinse incision with warm soapy water/shower pat dry keep clean dry and intact and redress with a clean dry dressing. No baths or soap Follow-up in the orthopedic office in 2 weeks from date of surgery Contact the office for any questions or concerns per (fevers, increased drainage or redness around the incision site etc.) Discharge Attestations Time Spent in Discharge Care*: greater than 30 min Status at Discharge: Cognitive status at discharge: cognitively intact, Behavioral status at discharge: cooperative, Quality Metrics Clinical Quality Measures [ No reported AMI, CVA or VTE this stay] Coding Level of Care Code Acute Code for Chg Fwd Diagnoses Benign essential HTN I10 Current use of terminal operations supervisor anticoagulation Z79.01 Pulmonary embolism I26.99 Renal cell carcinoma of left kidney C64.2 Laterality: left Closed fracture of left hip S72.002A Encounter type: initial encounter Chronic joint pain M25.50; G89.29 Chronic pain of left knee M25.562; G89.29 Chronicity: chronic Neurologic gait disorder R26.9
[2024-09-17 11:40] LABS: SARS Covid-2 Antigen negative (Negative)
--- NOTE | 2024-09-17 11:42 | PC.NURSE ---
This nurse called report to Kayy at [facility] at 1140. [facility] will be taking pt to their facility. Unsure of time.
[2024-09-17 12:00] VITALS: BP 148/85; PULSE 74; RESP 19; TEMP 36.9; O2SAT 96
[2024-09-17 13:40] VITALS: BP 148/85; PULSE 74; RESP 19; TEMP 36.9; O2SAT 96
== END 2024-09-17 13:41 | disposition skilled nursing facility (03) | DRG 481 ==
LOC: ER 17:15 → MEDSURG 17:34
PROVIDERS: Student in an Organized Health Care Education/Training Program; Admitting Provider Internal Medicine; Emergency Provider Emergency Medicine; PCP Family Medicine; Visit Provider Internal Medicine
PROC: 0QS736Z Reposition Left Upper Femur with Intramedullary Internal Fixation Device, Percutaneous Approach (ICD-10-PCS; CPT 27245; principal; 2024-09-13 12:15)
DX: S72.142A Displaced intertrochanteric fracture of left femur, initial encounter for closed fracture (principal); C64.2 Malignant neoplasm of left kidney, except renal pelvis; G37.9 Demyelinating disease of central nervous system, unspecified; I27.82 Chronic pulmonary embolism; N17.9 Acute kidney failure, unspecified; W18.30XA Fall on same level, unspecified, initial encounter; G62.9 Polyneuropathy, unspecified; M48.061 Spinal stenosis, lumbar region without neurogenic claudication; G25.81 Restless legs syndrome; J44.9 Chronic obstructive pulmonary disease, unspecified; K21.9 Gastro-esophageal reflux disease without esophagitis; E78.2 Mixed hyperlipidemia; I10 Essential (primary) hypertension; G89.29 Other chronic pain; M25.562 Pain in left knee; E86.0 Dehydration; Z79.01 Long term (current) use of anticoagulants; Z79.891 Long term (current) use of opiate analgesic; Z98.1 Arthrodesis status; Z11.52 Encounter for screening for COVID-19; Z90.49 Acquired absence of other specified parts of digestive tract; Z90.710 Acquired absence of both cervix and uterus; Z86.73 Personal history of transient ischemic attack (TIA), and cerebral infarction without residual deficits; Z87.891 Personal history of nicotine dependence; Z88.0 Allergy status to penicillin; Z88.2 Allergy status to sulfonamides
CPT/HCPCS: 36415; 51702; 51798; 71045; 73502; 73552; 73560; 73700; 76000; 80048; 80053; 82550; 82607; 83735; 84100; 85014; 85018; 85025; 85610; 86850; 86900; 87426; 93971; 96374; 96376; 97110; 97162; 97167; 97530; 97535; 99285; C1713; C1776; J0131; J1100; J1171; J1885; J2270; J2371; J2405; J2704; J2710; J3010; J3490; J7030

== ENCOUNTER 2024-10-01 13:58 | Outpatient (CLI) | payer MEDICARE, SELFPAY | END 2024-10-01 13:59 | disposition home or self-care (01) | LOC: RAD 13:59 | PROVIDERS: PCP Family Medicine; Visit Provider Physician Assistant | DX: G89.18 Other acute postprocedural pain (principal); Z98.890 Other specified postprocedural states; Z87.81 Personal history of (healed) traumatic fracture | CPT/HCPCS: 73502; 99024 ==

== ENCOUNTER → 2024-12-18 13:47 | Outpatient (BNVA) | payer MEDICARE, SELFPAY | PROVIDERS: PCP Family Medicine; Visit Provider Family Medicine | DX: M25.562 Pain in left knee (principal); M25.561 Pain in right knee; M17.12 Unilateral primary osteoarthritis, left knee; M25.50 Pain in unspecified joint; G89.29 Other chronic pain; K44.9 Diaphragmatic hernia without obstruction or gangrene; R14.0 Abdominal distension (gaseous); E78.2 Mixed hyperlipidemia; E55.9 Vitamin D deficiency, unspecified; J43.9 Emphysema, unspecified; I10 Essential (primary) hypertension; R79.89 Other specified abnormal findings of blood chemistry; R30.9 Painful micturition, unspecified; N39.0 Urinary tract infection, site not specified | CPT/HCPCS: 80053; 80061; 81000; 82306; 82607; 82746; 84443; 85025 ==

== ENCOUNTER 2025-02-08 11:00 | Emergency (ER) | payer MEDICARE, SELFPAY ==
--- NOTE | 2025-02-08 11:02 | CTR_ITS ---
PROCEDURE INFORMATION: Exam: CT Head Without Contrast Exam date and time: 02/08/2025 11:03 AM Age: 79 years old Clinical indication: Stroke-like symptoms; Altered mental status/memory loss; Additional info: Symptoms of acute stroke TECHNIQUE: Imaging protocol: Computed tomography of the head without contrast. Radiation optimization: All CT scans at this facility use at least one of these dose optimization techniques: automated exposure control; mA and/or kV adjustment per patient size (includes targeted exams where dose is matched to clinical indication); or iterative reconstruction. Other technique: STROKE PROTOCOL was implemented. COMPARISON: CT angio headneck* [id number] 04/30/2022 1:36 PM RADIATION DOSE METRICS: Total DLP (mGy-cm): 1104.98 FINDINGS: Brain: Moderate periventricular and subcortical white matter hypodensities compatible with chronic small vessel ischemic disease. No intracranial hemorrhage. No extra-axial fluid collection. Encephalomalacia in the left occipital lobe. Cerebral ventricles: No ventriculomegaly. Paranasal sinuses: Mucosal thickening in the right maxillary sinus. Mastoid air cells: Visualized mastoid air cells are well aerated. Bones: Unremarkable. No acute fracture. Soft tissues: Unremarkable. CT/CT head thrombolytic [id number] IMPRESSION: Encephalomalacia in the left occipital lobe, concerning for age-indeterminate infarct. ASSESSMENT: ASPECTS ([place] Stroke Program Early CT Score) is 10.
[2025-02-08 11:06] VITALS: BP 145/91; PULSE 65; RESP 18; TEMP 36.4; O2SAT 98
[2025-02-08 11:28] LABS: Basophils % 0.3 %; Eosinophils # 0.3 10^3/uL (0.0-0.8); Eosinophils % 4.4 %; Hematocrit 40.6 % (36-47); Lymphocytes # 2.1 10^3/uL (0.8-4.8); Lymphocytes % 31.7 %; Mean Corpuscular HGB Conc 30.3 g/dL (30-55); Mean Corpuscular Volume 95.8 fl (85-98); Mean Platelet Volume 11.5 fL (7.4-10.4); Monocytes # 0.4 10^3/uL (0.2-0.9); Monocytes % 6.7 %; Neutrophils # 3.68 10^3/uL (1.8-7.7); Neutrophils % 56.6 %; Nucleated Red Blood Cells % 0 %; Platelet Count 208 10^3/cmm (157-399); Red Blood Count 4.24 10^6/uL (3.85-5.65); Red Cell Distribution Width 15.9 % (12.1-15.1); White Blood Count 6.52 10^3/uL (3.29-11.43)
--- NOTE | 2025-02-08 11:32 | ECG_ITS ---
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[id number] Requested By: Keron Garcia Order Number: [id number] Luis Alberto MD: EVARISTO RUDD Measurements Intervals [place] Rate: 62 P: -71 [place]: 353 QRS: -2 QRSD: 93 T: 11 QT: 434 QTc: 444 Interpretive Statements ELECTRONIC ATRIAL PACEMAKER POSSIBLE INFERIOR MYOCARDIAL INFARCTION , PROBABLY OLD [30 ms Q WAVE IN II/aVF] ABNORMAL RHYTHM ECG Compared to ECG 04/30/2022 12:44:07 Myocardial infarct finding now present Sinus bradycardia no longer present Incomplete right bundle-branch block no longer present Electronically Signed On 02-10-2025 18:11:25 CDT by EVARISOT RUDD [email or web address]
--- NOTE | 2025-02-08 11:46 | W.ED.NEUROSD ---
HPI - Neuro Symptoms/Deficit General: Chief Complaint: Neuro Symptoms/Deficit Stated Complaint: facial droop Time Seen by Provider: 02/08/25 11:01 Source: patient Mode of arrival: ambulatory Limitations: no limitations History of Present Illness: 79-year-old female who is here with TIA-like symptoms. She states that she had had some left-sided facial droop at 10 family noticed and states she just was not feeling right by time EMS arrived the facial droop is resolved she states she feels back to her normal self currently she has weakness to her legs that are old and uses a wheelchair. She denies any headache denies any pain denies any worse improved factors Associated symptoms: Deny chest pain, headache(s), nausea or vomiting Related Data Home Medications ?Medication ?Instructions ?Recorded ?Confirmed carvedilol 25 mg tablet 25 mg PO BID 02/08/25 02/08/25 hydralazine 100 mg tablet 100 mg PO TID 02/08/25 02/08/25 lisinopril 20 mg tablet 40 mg PO BID 02/08/25 02/08/25 pantoprazole 40 mg tablet,delayed 40 mg PO BID 02/08/25 02/08/25 release Previous Rx's ?Medication ?Instructions ?Recorded tramadol 50 mg tablet 100 mg (2 x 50 mg) PO Q8H PRN pain 12/18/24 30 days #180 tabs rivaroxaban 20 mg tablet (Xarelto) See Rx Instructions .Route 02/06/25 .COMPLEX #30 tabs atorvastatin 40 mg tablet (Lipitor) 40 mg PO DAILY #30 tabs 02/08/25 Allergies Allergy/AdvReac Type Severity Reaction Status Date / Time amlodipine Allergy ANGIOEDEMA Verified 12/18/24 13:00 hydrochlorothiazide Allergy HIVES Verified 12/18/24 13:00 hydroxychloroquine (From Allergy LEG CRAMPS Verified 12/18/24 13:00 Plaquenil) levofloxacin (From Levaquin) Allergy DIFFICULTY Verified 12/18/24 13:00 BREATHING Penicillins Allergy ANAPHYLAXIS Verified 12/18/24 13:00 Sulfa (Sulfonamide Allergy RASH Verified 12/18/24 13:00 Antibiotics) Review of Systems Const: Denies: fever(s), chills, body aches or change in appetite ENMT: Denies: throat pain or dental pain Card: Denies: chest pain Resp: Denies: dyspnea GI: Denies: abdominal pain, nausea, vomiting or diarrhea Musc: Denies: neck pain or back pain Skin/Breast: Denies: rash Neuro: Denies: headache(s) PFSH ED PFSH: Medical History (Updated 02/08/25 @ 12:33 by Felipe Alvarez MD) Fracture, intertrochanteric, left femur Fall Closed fracture of left hip Renal cell carcinoma Neurologic gait disorder Left knee pain Pulmonary embolism Current use of mcc anticoagulation Benign essential HTN Left carotid stenosis Chronic joint pain Spinal stenosis, lumbar region without neurogenic claudication Renal function test abnormal Cervical stenosis of spine Demyelinating disease Restless legs syndrome Chronic obstructive pulmonary disease, unspecified Gastro-esophageal reflux disease without esophagitis Personal history of transient ischemic attack (TIA), and cerebral infarction without residual deficits Mixed hyperlipidemia Pulmonary embolism on long-term anticoagulation therapy Surgical History Hx of colonoscopy History of esophagogastroduodenoscopy (EGD) with Dr. Wilburn 10 yrs [place] [facility] [place] S/P tonsillectomy and adenoidectomy H/O: hysterectomy S/P cervical spinal fusion S/P bilateral cataract extraction Family History Other Heart disease Social History Smoking and tobacco/nicotine status: never used tobacco/nicotine Quit status (tobacco/nicotine): has quit using Former quit date comment: 10/08/23 Alcohol intake: never Substance/Drug Use: never Household members: spouse Marital status: Female Reproductive History: Spontaneous abortions: No NIH stroke score NIHSS: Level Of Consciousness - 1a: 0 Level Of Consciousness Questions - 1b: Both Correct Level Of Consciousness Commands - 1c: Both Correct Best Gaze - 2: Normal Visual Sin - 3: No Visual Loss Facial Palsy - 4: Normal Motor Arm Right - 5: No Drift Motor Arm Left - 5: No Drift Motor Leg Right - 6: No Drift Motor Leg Left - 6: No Drift Limb Ataxia - 7: Absent Sensory - 8: Normal Best Language - 9: No Aphasia Dysarthia - 10: Normal Extinction And Inattention - 11: 0 Score: Total Score: 0 Physical Exam Const: COMMON NORMALS: patient oriented x3 HENMT: COMMON NORMALS: normocephalic and atraumatic HEAD & SCALP: normocephalic and atraumatic Eye: COMMON NORMALS: Equal, round and reactive pupils present and EOMs intact bilaterally PUPIL: Yes Equal, round and reactive pupils present Neck/C-Spine: COMMON NORMALS: full ROM and supple Chest: COMMONS NORMALS: normal inspection of the chest and normal palpation of entire chest wall Resp: COMMON NORMALS: normal respiratory effort, No retractions, No use of accessory muscles and clear to auscultation bilaterally AUSCULTATION: clear to auscultation bilaterally Cardio: COMMON NORMALS: regular rate, regular rhythm and No murmurs present (Cardio) RATE: regular rate RHYTHM: regular rhythm GI: COMMON NORMALS: Normal to inspection, nondistended, normoactive bowel sounds present, Soft to palpation, non-tender and no masses PALPATION: Yes Soft to palpation Extremity: COMMON NORMALS: normal to inspection and full ROM Neuro: COMMON NORMALS: patient oriented x3, moves all extremities and no focal motor deficits Psych: COMMON NORMALS: mental status grossly normal, Normal thought process present and cooperative THOUGHT PROCESS: Normal thought process present Skin: COMMON NORMALS: no rashes or lesions noted and no wounds GENERAL SKIN EXAM: no rashes or lesions noted Course Vital Signs: Vital signs: Vital Signs Temperature 97.5 F L 02/08/25 11:06 Pulse Rate 65 02/08/25 11:06 Respiratory Rate 18 02/08/25 11:06 Blood Pressure 145/91 02/08/25 11:06 Pulse Oximetry 98 02/08/25 11:06 MDM - Neuro Symptoms/Deficit Medical Decision Making Patient presents here with likely TIA imaging here shows an old infarct no acute findings patient's symptoms of point resolved I recommended admission patient states she does not want to stay I spoke to her daughters who agree they want to take her home she states she has had many TIAs in the past did prescribe her statin she is already on Xarelto we will get a follow-up with neurology she is return if worsening she understands agrees to plan Medical Records I reviewed the patient's medical records. Lab Data I reviewed the patient's lab results. 02/08/25 11:21 02/08/25 12:[address] 02/08/25 11:02 IMPRESSION: Encephalomalacia in the left occipital lobe, concerning for age-indeterminate infarct. ASSESSMENT: ASPECTS ([place] Stroke Program Early CT Score) is 10. ADDENDUM: 02/08/25 1117 COMMENT: THIS REPORT CONTAINS FINDINGS THAT MAY BE CRITICAL TO PATIENT CARE. The exam findings were verbally communicated by me to FELIPE ALVAREZ via telephone conference at 11:15 AM CDT on 02/08/2025. The findings were acknowledged and understood. Laboratory Results WBC 6.52 10^3/uL (3.29-11.43) 02/08/25 11:21 RBC 4.24 10^6/uL (3.85-5.65) 02/08/25 11:21 Hgb 12.30 g/dL (11.27-16.99) 02/08/25 11:21 Hct 40.6 % (36-47) 02/08/25 11:21 MCV 95.8 fl (85-98) 02/08/25 11:21 MCH 29.0 pg (27-33) 02/08/25 11:21 MCHC 30.3 g/dL (30-55) 02/08/25 11:21 RDW 15.9 % (12.1-15.1) H 02/08/25 11:21 Plt Count 208 10^3/cmm (157-399) 02/08/25 11:21 MPV 11.5 fL (7.4-10.4) H 02/08/25 11:21 Neut % (Auto) 56.6 % 02/08/25 11:21 Lymph % (Auto) 31.7 % 02/08/25 11:21 [place]duffie % (Auto) 6.7 % 02/08/25 11:21 Eos % (Auto) 4.4 % 02/08/25 11:21 Baso % (Auto) 0.3 % 02/08/25 11:21 Neut # (Auto) 3.68 10^3/uL (1.8-7.7) 02/08/25 11:21 Lymph # (Auto) 2.1 10^3/uL (0.8-4.8) 02/08/25 11:21 [place]duffie # (Auto) 0.4 10^3/uL (0.2-0.9) 02/08/25 11:21 Eos # (Auto) 0.3 10^3/uL (0.0-0.8) 02/08/25 11:21 Baso # (Auto) 0.0 10^3/uL (0.0-0.1) 02/08/25 11:21 Nucleated RBC % (auto) 0 % 02/08/25 11:21 Nucleated RBCs # 0.0 /100WBC 02/08/25 11:21 PT 16.60 SECONDS (12.1-14.9) H 02/08/25 12:00 INR 1.26 (0.8-1.2) H 02/08/25 12:00 APTT 40.4 SECONDS (23.9-36.7) H 02/08/25 12:00 Sodium 136 mmol/L (136-145) 02/08/25 12:00 Potassium 4.6 mmol/L (3.5-5.1) 02/08/25 12:00 Chloride 102 mmol/L (98-107) 02/08/25 12:00 Carbon Dioxide 26 mmol/L (22-29) 02/08/25 12:00 Anion Gap 12.6 (5-19) 02/08/25 12:00 BUN 24 mg/dL (8-23) H 02/08/25 12:00 Creatinine 1.4 mg/dL (0.5-0.9) H 02/08/25 12:00 GFR Calculation Not Reportable 02/08/25 12:00 Glucose 104 mg/dL (65-115) 02/08/25 12:00 Calculated Osmolality 286 mOsm/kg (285-295) 02/08/25 12:00 Calcium 8.6 mg/dL (8.5-10.5) 02/08/25 12:00 Total Bilirubin 0.2 mg/dL (0.15-1.2) 02/08/25 12:00 AST 18 U/L (0-32) 02/08/25 12:00 ALT 7 U/L (0-33) 02/08/25 12:00 Alkaline Phosphatase 94 U/L (35-105) 02/08/25 12:00 Total Protein 6.4 g/dL (6.6-8.7) L 02/08/25 12:00 Albumin 3.4 g/dL (3.5-5.2) L 02/08/25 12:00 Globulin 3.0 g/dL (1.3-4.6) 02/08/25 12:00 All radiology interpretation(s) finalized by discharge Discharge Plan Discharge Patient Disposition: Home Clinical Impression: Transient cerebral ischemia Condition: Stable Prescriptions: New atorvastatin [Lipitor] 40 mg tablet 40 mg PO DAILY Qty: 30 0RF No Action tramadol 50 mg tablet 100 mg PO Q8H PRN (Reason: pain) 30 Days Qty: 180 1RF Xarelto 20 mg tablet See Rx Instructions .ROUTE .COMPLEX Qty: 30 0RF Dose Instruction: TAKE 1 TABLET BY MOUTH EVERY DAY with evening meal Rx Instructions: TAKE 1 TABLET BY MOUTH EVERY DAY with evening meal carvedilol 25 mg tablet 25 mg PO BID Rx Instructions: TAKE ONE TABLET BY MOUTH TWICE DAILY lisinopril 20 mg tablet 40 mg PO BID Rx Instructions: TAKE TWO TABLETS BY MOUTH TWICE DAILY hydralazine 100 mg tablet 100 mg PO TID Rx Instructions: TAKE 1 TABLET BY MOUTH THREE TIMES DAILY pantoprazole 40 mg tablet,delayed release (DR/EC) 40 mg PO BID Rx Instructions: TAKE 1 TABLET BY MOUTH TWICE DAILY Discharge Orders: Discharge ED (Routine); Ordered 02/08/25 Ordered By: Felipe Alvarez Referrals: William Reyna DO [Primary Care Provider] - 4-7 days Discharge Diet: Advance as tolerated Discharge Activity: Resume usual activity Patient Instructions: Transient Ischemic Attack (ED) Print Language: Trinidadian Coding Level of Care Code ED Classification Case Manager for Fredis Vick
[2025-02-08 12:16] LABS: INR 1.26 (0.8-1.2)
[2025-02-08 12:18] LABS: Partial Thromboplastin Time 40.4 SECONDS (23.9-36.7)
[2025-02-08 12:21] LABS: Alanine Aminotransferase 7 U/L (0-33); Albumin Level 3.4 g/dL (3.5-5.2); Alkaline Phosphatase 94 U/L (35-105); Anion Gap 12.6 (5-19); Aspartate Amino Transferase 18 U/L (0-32); Blood Urea Nitrogen 24 mg/dL (8-23); Calcium 8.6 mg/dL (8.5-10.5); Carbon Dioxide 26 mmol/L (22-29); Chloride 102 mmol/L (98-107); Creatinine Clr Calc Pharmacy 36.7542; Glucose 104 mg/dL (65-115); Osmolality Calculated 286 mOsm/kg (285-295); Potassium 4.6 mmol/L (3.5-5.1); Sodium 136 mmol/L (136-145); Total Bilirubin 0.2 mg/dL (0.15-1.2); Total Protein 6.4 g/dL (6.6-8.7)
[2025-02-08] MEDS: aspirin 81 mg Chew Tablet 324 MG PO (12:35)
[2025-02-08 13:02] VITALS: BP 138/80; PULSE 55; RESP 18; O2SAT 96
--- NOTE | 2025-02-10 07:27 | DCPLANNER ---
messaged neuro for er f/u
== END 2025-02-08 13:05 | disposition home or self-care (01) ==
PROVIDERS: Emergency Provider Emergency Medicine; PCP Family Medicine
DX: G45.9 Transient cerebral ischemic attack, unspecified (principal); Z87.891 Personal history of nicotine dependence; I10 Essential (primary) hypertension; E78.2 Mixed hyperlipidemia
CPT/HCPCS: 36415; 70450; 80053; 85025; 85610; 85730; 93005; 99284; J9999

== ENCOUNTER 2025-02-21 13:41 | Outpatient (CLI) | payer MEDICARE, SELFPAY ==
--- NOTE | 2025-02-21 13:50 | MR_ITS ---
WS: [id number] MRI CERVICAL SPINE NONCONTRAST HISTORY: CERVICAL REGION SPINAL STENOSIS COMPARISON: 07/25/2023 Technique: Multiplanar, multisequence noncontrast imaging of the cervical spine. Anterior cervical fusion with interbody spacers at C4-5 and C5-6. Additional posterior cervical fusion from C5-C7. Progression of anterolisthesis at T1 and T2 by 3 mm. Progression of degenerative disc disease at T2-3. Central disc protrusion contacting the thoracic cord was described on 07/25/2023. There is now very slight cord atrophy with focal myelomalacia. Craniocervical junction, C1 and C2 relationship, odontoid process and soft tissues are normal. C2-C3: Annular disc bulging and facet arthritis. Mild foraminal narrowing on the LEFT. C3-C4: Osteophytic ridging with annular disc bulging and facet joint arthritis. Moderate central, bilateral foraminal stenosis and facet arthritis, LEFT greater than RIGHT. Similar to the prior study. C4-C5: Disc fusion with bony ridging. Bony ridging encroaching upon the ventral thecal sac. Mild central and bilateral foraminal stenosis. C5-C6: Mild bony ridging. This level is poorly visualized due to hardware. Laminectomy defects. C6-C7: Osteophytic ridging. Mild central with moderate foraminal stenosis. Laminectomy defects. C7-T1: Unroofing of the disc. Mild to moderate central with bilateral foraminal stenosis. T1-2; mild central with moderate to severe bilateral foraminal stenosis. Bilateral thyroid nodules. Abnormal signal in the LEFT occipital lobe. Prior infarct noted on recent CT from 02/08/2025. MR/MR cervical spin wo con* [id number] IMPRESSION: 1. Prior anterior cervical disc fusion from C4-C6. Additional prior posterior fusion from C5-C7 with laminectomy defects. 2. T2-3: Central disc protrusion contacting the thoracic cord was previously d escribed. Continued central canal stenosis with myelomalacia and mild cord atro phy. 3. Mild progression of T1 and 2 anterolisthesis by 3 mm. 4. C7-T1: Mild to moderate central with moderate foraminal stenosis. 5. T1-2: Mild central with moderate to severe bilateral foraminal stenosis. 6. C4-5: Mild central and bilateral foraminal stenosis. 7. C3-4: Moderate central and bilateral foraminal stenosis. 8. Remote LEFT occipital lobe infarct.
--- NOTE | 2025-02-21 13:50 | MR_ITS ---
WS: [id number] MRI THORACIC SPINE noncontrast HISTORY: CERVICAL REGION SPINAL STENOSIS COMPARISON: 07/25/2023 TECHNIQUE: Multiplanar sequences are performed in sagittal and axial planes. Mild long curvature thoracic spine to the RIGHT. Anterolisthesis of T1 and T2 by 3 mm. Advanced degenerative disc disease at T2-3 with mild fragmentation of the anterior T3 vertebral body, no change. There is less marrow edema within the T2 and T3 endplates as seen on the prior study. Central disc protrusion at T2-3 is reidentified. Thoracic cord myelomalacia at the T2-3 level as seen on the prior study and there may be very slight atrophy developing. No acute thoracic spine fractures. Small amount of edema in the L2 and L3 vertebral bodies with a disc protrusion. Disc protrusion at L2-3 causing significant central and bilateral foraminal stenosis. Small disc protrusions at T5-6, T6-7, T7-8, T8-9, T10-11 and T11-12. Slightly greater contact on the thoracic cord at T7-8 as seen on the prior study. Facet joint arthropathy encroaching posteriorly in the mid thoracic spine. Facet joint arthropathy resulting in foraminal narrowing along with osteophytes at multiple levels throughout the thoracic spine as noted on the prior exam. Most significant areas of foraminal stenosis include T1-2, T2-3, T3-4, T4-5, T7- 8, T8-9, T9-10, T10-11 and T11-12. LEFT kidney has been removed since the prior study. MR/MR thoracic spin wo con* [id number] IMPRESSION: 1. Advanced multilevel degenerative disc disease and facet arthritis throughou t the thoracic spine. Multilevel disc protrusions are similar to the prior exam ination. 2. Large central disc protrusion at L2-3 with severe central and bilateral for aminal stenosis. 3. T1 and T2 anterolisthesis by 3 mm. 4. T2-3: Central disc protrusion with mild central stenosis and cord myelomala konrad. 5. LEFT nephrectomy since the prior exam.
== END 2025-02-21 13:42 | disposition home or self-care (01) ==
LOC: RAD 13:43
PROVIDERS: PCP Family Medicine; Visit Provider Neurological Surgery
DX: M48.02 Spinal stenosis, cervical region (principal); M51.34 Other intervertebral disc degeneration, thoracic region; M47.894 Other spondylosis, thoracic region; M51.24 Other intervertebral disc displacement, thoracic region; M51.26 Other intervertebral disc displacement, lumbar region; M48.061 Spinal stenosis, lumbar region without neurogenic claudication; M43.14 Spondylolisthesis, thoracic region; G95.89 Other specified diseases of spinal cord; Z90.5 Acquired absence of kidney; M43.8X4 Other specified deforming dorsopathies, thoracic region; M25.78 Osteophyte, vertebrae; M48.04 Spinal stenosis, thoracic region; Z98.890 Other specified postprocedural states; M96.89 Other intraoperative and postprocedural complications and disorders of the musculoskeletal system; M50.31 Other cervical disc degeneration, high cervical region; M47.892 Other spondylosis, cervical region; R93.7 Abnormal findings on diagnostic imaging of other parts of musculoskeletal system; E04.2 Nontoxic multinodular goiter; M16.12 Unilateral primary osteoarthritis, left hip; M85.88 Other specified disorders of bone density and structure, other site; S72.142D Displaced intertrochanteric fracture of left femur, subsequent encounter for closed fracture with routine healing; X58.XXXD Exposure to other specified factors, subsequent encounter; Z87.81 Personal history of (healed) traumatic fracture; I63.89 Other cerebral infarction
CPT/HCPCS: 72141; 72146; 73502; 99213

== ENCOUNTER 2025-03-05 13:24 | Outpatient (RCR) | payer MEDICARE, SELFPAY | END 2025-03-21 10:00 | disposition home or self-care (01) | LOC: SPT 13:24 | PROVIDERS: Visit Provider Physician Assistant | DX: Z98.890 Other specified postprocedural states (principal) | CPT/HCPCS: 97110; 97116; 97162 ==

== ENCOUNTER 2025-03-31 08:25 | Outpatient (CLI) | payer MEDICARE, SELFPAY ==
--- NOTE | 2025-03-31 08:30 | FL_ITS ---
WS: [id number] BARIUM SWALLOW 03/31/2025. HISTORY: Dysphagia TECHNIQUE: Examination is somewhat limited by limitation in patient's physical abilities. The swallowing of barium was performed in the upright PA and lateral projections and in the prone GALDAMEZ position. The swallowing of barium was monitored fluoroscopically and multiple rapid sequence spot films obtained from the oropharynx to the gastric fundus. FINDINGS: Mild prominence of the cricopharyngeus, proximal esophageal sphincter in the cervical esophagus. No extrinsic or intrinsic mass effect in the thoracic esophagus. The thoracic esophagus demonstrated frequent loss of the primary peristaltic wave with degeneration into tertiary contractions with prolonged retention of barium within the mid esophagus. There were intermittent episodes of retrograde movement of the barium from the midesophagus with the tertiary contractions. Intermittent spasm of the distal esophageal sphincter with no fixed stricture. Small sliding hiatal hernia without reflux elicited. FL/FL barium swallow 2cont [id number] IMPRESSION: Esophageal dysmotility as above.
== END 2025-03-31 08:26 | disposition home or self-care (01) ==
PROVIDERS: PCP Family Medicine; Visit Provider Family Medicine
DX: R13.10 Dysphagia, unspecified (principal); K22.2 Esophageal obstruction; G45.9 Transient cerebral ischemic attack, unspecified; R93.89 Abnormal findings on diagnostic imaging of other specified body structures; K44.9 Diaphragmatic hernia without obstruction or gangrene; K22.4 Dyskinesia of esophagus
CPT/HCPCS: 74221

== ENCOUNTER → 2025-05-28 13:15 | Outpatient (BNVA) | payer MEDICARE, SELFPAY | PROVIDERS: PCP Family Medicine; Visit Provider Family Medicine | DX: I10 Essential (primary) hypertension (principal); E55.9 Vitamin D deficiency, unspecified; E78.2 Mixed hyperlipidemia; E53.8 Deficiency of other specified B group vitamins; R79.89 Other specified abnormal findings of blood chemistry | CPT/HCPCS: 80053; 80061; 82306; 82607; 82746; 83735; 84443; 85025 ==

== ENCOUNTER 2025-09-12 10:40 | Emergency (ER) | payer MEDICARE, SELFPAY ==
--- NOTE | 2025-09-12 10:36 | CT_ITS ---
WS: [id number] CT HEAD NONCONTRAST HISTORY: Symptoms of acute stroke TECHNIQUE: Contiguous axial imaging performed through the brain. Bone and soft tissue windows. Sagittal and coronal reformats reviewed. All CT scans at [place] use at least one of these dose optimization techniques: automated exposure control; mA and/or kV adjustment per patient size (includes targeted exams where dose is matched to clinical indication); or iterative reconstruction. DLP: 1161.74 mGy COMPARISON: 02/08/2025 No acute intracranial hemorrhage, midline shift or mass effect. Mild atrophy and small vessel disease. Low-attenuation in the periventricular white matter is similar to the prior study of 02/08/2025. Remote area of encephalomalacia from a prior infarct involving the LEFT occipital lobe. Ventricles: Mildly dilated ventricles. Ex vacuo dilatation occipital horn of the LEFT lateral ventricle adjacent to the prior infarct. No intra displacement of the cerebellar tonsils. Paranasal sinuses: Mucoperiosteal thickening bilaterally. Mild progression of paranasal sinus disease. Mastoid air cells: Well pneumatized. Calvarium and scalp: Skull is intact with no soft tissue edema or swelling. CT/CT head thrombolytic [id number] IMPRESSION: 1. No acute intracranial hemorrhage or edema. 2. Mild atrophy with small vessel changes. Small vessel changes are very simil ar to prior studies. 3. Remote LEFT occipital lobe infarct with encephalomalacia, stable. Notified Grace Brunson MD at 09/12/2025 10:56 AM.
[2025-09-12 10:41] VITALS: BP 123/72; PULSE 69; RESP 18; TEMP 36.8; O2SAT 94; BMI 28.5
--- NOTE | 2025-09-12 10:43 | ED_ITS ---
HPI - Syncope 2 General: Chief Complaint: Neuro Symptoms/Deficit Stated Complaint: slurred speech - loc History of Present Illness: 80-year-old female with a history of pul monary embolism on chronic anticoagulation with Xarelto, history of nephrectomy, spinal stenosis, tobacco dependence, TIA, COPD, carotid stenosis, and hypertension who presents to the emergency room by ambulance from her hairdresser after having had a syncopal episode and awakening with slurred speech. There was initial concern for stroke. EMS reports no focal deficits but she did have slurred speech/dysarthria on presentation which has resolved upon arrival. She says she feels generally weak. No chest pain. No abdominal pain. No vomiting. Related Data Previous Rx's ?Medication ?Instructions ?Recorded carvedilol 25 mg tablet See Rx Instructions .Route 0 02/24/25 .COMPLEX #180 tabs rivaroxaban 20 mg tablet (Xarelto) See Rx Instructions .Route 04/22/25 .COMPLEX #90 tabs metoclopramide HCl 5 mg tablet 5 mg PO DAILY #90 tabs 05/28/25 pantoprazole 40 mg tablet,delayed 40 mg PO QDAY #90 ta bs 05/28/25 release tramadol 50 mg tablet 100 mg (2 x 50 mg) PO Q8H IN N pain 06/24/25 30 days #180 tabs hydralazine 100 mg tablet See Rx Instructions .Route 0 07/02/25 .COMPLEX #90 tabs lisinopril 20 mg tablet See Rx Instructions .Route 0 07/02/25 .COMPLEX #120 tabs cefdinir 300 mg capsule 300 mg PO BID 7 days #14 cap s 09/12/25 Allergies Allergy/AdvReac Type Severity Reaction Status Date / Time amlodipine Allergy ANGIOEDEMA Verified 07/23/25 15:34 hydrochlorothiazide Allergy HIVES Verified 07/23/25 15:34 hydroxychloroquine (From Allergy LEG CRAMPS Verified 07/23/25 15:34 Plaquenil) levofloxacin (From Levaquin) Allergy DIFFICULTY Verified 07/23/25 15:34 BREATHING Penicillins Allergy ANAPHYLAXIS Verified 07/23/25 15:34 Sulfa (Sulfonamide Allergy RASH Verified 07/23/25 15:34 Antibiotics) Review of Systems 2 Narrative: Constitutional symptoms: Negative except as documented in HPI. Skin symptoms: Negative except as documented in HPI. Eye symptoms: Negative except as documented in HPI. ENMT symptoms: Negative except as documented in HPI. Respiratory symptoms: Negative except as documented in HPI. Cardiovascular symptoms: Negative except as documented in HPI. Gastrointestinal symptoms: Negative except as documented in HPI. Genitourinary symptoms: Negative except as documented in HPI. Musculoskeletal symptoms: Negative except as documented in HPI. Neurologic symptoms: Negative except as documented in HPI. Psychiatric symptoms: Negative except as documented in HPI. Endocrine symptoms: Negative except as documented in HPI. PFSH ED 2 PFSH: Medical History (Updated 09/12/25 @ 11:51 by Grace Brunson MD) Fracture, intertrochanteric, left femur Fall Closed fracture of left hip Renal cell carcinoma Neurologic gait disorder Left knee pain Pulmonary embolism Current use of prison anticoagulation Benign essential HTN Left carotid stenosis Chronic joint pain Spinal stenosis, lumbar region without neurogenic claudication Renal function test abnormal Cervical stenosis of spine Demyelinating disease Restless legs syndrome Chronic obstructive pulmonary disease, unspecified Gastro-esophageal reflux disease without esophagitis Personal history of transient ischemic attack (TIA), and cerebral infarction without residual deficits Mixed hyperlipidemia Pulmonary embolism on long-term anticoagulation therapy Surgical History Hx of colonoscopy History of esophagogastroduodenoscopy (EGD) with Dr. Wilburn 10 yrs ago at [facility] [place] S/P cholecystectomy S/P tonsillectomy and adenoidectomy H/O: hysterectomy S/P cervical spinal fusion S/P bilateral cataract extraction Family History Other Heart disease Social History Smoking and tobacco/nicotine status: current every day tobacco/nicotine user Quit status (tobacco/nicotine): has quit using Former quit date comment: 10/08/23 Alcohol intake: never Substance/Drug Use: never Household members: spouse Marital status: Female Reproductive History: Spontaneous abortions: No Physical Exam 2 Narrative: EXAM NARRATIVE: General: Alert, no acute distress. Skin: Warm, dry. Head: Normocephalic, atraumatic. Neck: Supple, trachea midline. Eye: Extraocular movements are intact. Ears, nose, mouth and throat: mucosa moist. Cardiovascular: Regular, Normal peripheral perfusion. Respiratory: Lungs are clear to auscultation, respirations are non-labored, breath sounds are equal, Symmetrical chest wall expansion. Gastrointestinal: Soft, Nontender, Non distended Musculoskeletal: Normal ROM, no deformity. Neurological: Alert and oriented, No focal neurological deficit observed. No facial droop. No slurred speech. No altered mental status. No focal extremity deficits. Psychiatric: Cooperative, appropriate mood & affect. Course 2 Vital Signs: Vital signs: Vital Signs Temperature 98.2 F 09/12/25 10:41 Pulse Rate 88 09/12/25 11:27 Respiratory Rate 18 09/12/25 10:41 Blood Pressure 122/78 09/12/25 11:27 Pulse Oximetry 98 09/12/25 11:27 Oxygen Delivery Me thod Room Air 09/12/25 10:41 MDM - Syncope Medical Decision Making Medical decision making: Differential diagnosis including but not limited to and based on the above HPI, review of systems and physical exam in this patient with syncope: Vasovagal, orthostatics hypotension, cardiac dysrhythmia, myocardial infarction, infection and hypotension, Orders placed to evaluate differential diagnosis based on the above differential, HPI and physical exam This was called out as a stroke as she had some aphasia. This could have been a TIA and so in addition to syncopal workup we are doing stroke workup. NIH Stroke Scale/Score (NIHSS) from [employer] on 09/12/2025 All calculations should be rechecked by clinician prior to use RESULT SUMMARY: 0 points NIH Stroke Scale INPUTS: 1A: Level of consciousness ?> 0 = Alert; keenly responsive 1B: Ask month and age ?> 0 = Both questions right 1C: 'Blink eyes' & 'squeeze hands' ?> 0 = Performs both tasks 2: Horizontal extraocular movements ?> 0 = Normal 3: Visual jaquez ?> 0 = No visual loss 4: Facial palsy ?> 0 = Normal symmetry 5A: Left arm motor drift ?> 0 = No drift for 10 seconds 5B: Right arm motor drift ?> 0 = No drift for 10 seconds 6A: Left leg motor drift ?> 0 = No drift for 5 seconds 6B: Right leg motor drift ?> 0 = No drift for 5 seconds 7: Limb Ataxia ?> 0 = No ataxia 8: Sensation ?> 0 = Normal; no sensory loss 9: Language/aphasia ?> 0 = Normal; no aphasia 10: Dysarthria ?> 0 = Normal 11: Extinction/inattention ?> 0 = No abnormality CT head: No acute intracranial process. No intracranial hemorrhage, no evidence of infarct. No evidence of acute fracture. This was reviewed and interpreted by myself the emergency room physician. I also reviewed the radiology report. EKG: Time 10:46 AM. Rate 69 atrial fibrillation with controlled rate, No ST-T changes, no ectopy, This was reviewed and interpreted by myself the ER physician at 10:50 AM Lab Review: Laboratory results were reviewed and interpreted by myself the emergency room physician. No leukocytosis. No anemia. Mild renal insufficiency with a creatinine of 1.2. Urinalysis is positive for infection. Also quite concentrated which would indicate dehydration. I reviewed the patient's medical record. 80-year-old female with a history of pulmonary embolism on chronic anticoagulation with Xarelto, history of nephrectomy, spinal stenosis, tobacco dependence, TIA, COPD, carotid stenosis, and hypertension. History of previous stroke Reexamination: Patient remained stable. No increased work of breathing. No altered mental status. No focal motor deficits. Assessment and plan: Syncope Urinary tract infection Dehydration ?Normal saline bolus and IV Rocephin - Discharged home - Discussed plan with patient. Answered any questions. - Evaluation and treatment of this problem were appropriate in the emergency setting. Lab Data 09/12/25 10:25 09/12/25 10:[address] 09/12/25 10:36 IMPRESSION: 1. No acute intracranial hemorrhage or edema. 2. Mild atrophy with small vessel changes. Small vessel changes are very similar to prior studies. 3. Remote LEFT occipital lobe infarct with encephalomalacia, stable. Notified Grace Brunson MD at 09/12/2025 10:56 AM. Laboratory Results WBC 10.05 10^3/uL (3.29-11.43) 09/12/25 10:25 RBC 4.49 10^6/uL (3.85-5.65) 09/12/25 10:25 Hgb 12.70 g/dL (11.27-16.99) 09/12/25 10:25 Hct 39.7 % (36-47) 09/12/25 10:25 MCV 88.4 fl (85-98) 09/12/25 10:25 MCH 28.3 pg (27-33) 09/12/25 10:25 MCHC 32.0 g/dL (30-55) 09/12/25 10:25 RDW 14.4 % (12.1-15.1) 09/12/25 10:25 Plt Count 280 10^3/cmm (157-399) 09/12/25 10:25 MPV 11.2 fL (7.4-10.4) H 09/12/25 10:25 Neut % (Auto) 62.8 % 09/12/25 10:25 Lymph % (Auto) 28.9 % 09/12/25 10:25 Wilson % (Auto) 6.3 % 09/12/25 10:25 Eos % (Auto) 1.3 % 09/12/25 10:25 Baso % (Auto) 0.3 % 09/12/25 10:25 Neut # (Auto) 6.32 10^3/uL (1.8-7.7) 09/12/25 10:25 Lymph # (Auto) 2.9 10^3/uL (0.8-4.8) 09/12/25 10:25 Wilson # (Auto) 0.6 10^3/uL (0.2-0.9) 09/12/25 10:25 Eos # (Auto) 0.1 10^3/uL (0.0-0.8) 09/12/25 10:25 Baso # (Auto) 0.0 10^3/uL (0.0-0.1) 09/12/25 10:25 Nucleated RBC % (auto) 0 % 09/12/25 10:25 Nucleated RBCs # 0.0 /100WBC 09/12/25 10:25 PT 17.50 SECONDS (12.1-14.9) H 09/12/25 10:25 INR 1.34 (0.8-1.2) H 09/12/25 10:25 APTT 45.8 SECONDS (23.9-36.7) H 09/12/25 10:25 Sodium 136 mmol/L (136-145) 09/12/25 10:25 Potassium 4.5 mmol/L (3.5-5.1) 09/12/25 10:25 Chloride 101 mmol/L (98-107) 09/12/25 10:25 Carbon Dioxide 22 mmol/L (22-29) 09/12/25 10:25 Anion Gap 17.5 (5-19) 09/12/25 10: BUN 19 mg/dL (8-23) 09/12/25 10:25 Creatinine 1.2 mg/dL (0.5-0.9) H 09/12/25 10:25 GFR Calculation Not Reportable 09/12/25 10:25 Glucose 123 mg/dL (65-115) H 09/12/25 10:25 POC Glucose 111 mg/dL (70-110) H 09/12/25 10:50 Calculated Osmolality 286 mOsm/kg (285-295) 09/12/25 10:25 Lactic Acid 1.8 mmol/L (0.5-2.2) 09/12/25 10:25 Calcium 8.5 mg/dL (8.5-10.5) 09/12/25 10:25 Total Bilirubin 0.3 mg/dL (0.15-1.2) 09/12/25 10:25 AST 14 U/L (0-32) 09/12/25 10:25 ALT 6 U/L (0-33) 09/12/25 10:25 Alkaline Phosphatase 104 U/L (35-105) 09/12/25 10:25 Total Protein 6.5 g/dL (6.6-8.7) L 09/12/25 10:25 Albumin 3.4 g/dL (3.5-5.2) L 09/12/25 10:25 Globulin 3.1 g/dL (1.3-4.6) 09/12/25 10:25 Urine Color Yellow (Yellow) 09/12/25 11:05 Urine Appearance Turbid (CLEAR) A 09/12/25 11:05 Urine pH 6.0 (5-7) 09/12/25 11:05 Ur Specific [place] 1.024 (1.005-1.030) 09/12/25 11:05 Urine Protein 1+ (Negative) A 09/12/25 11:05 Urine Glucose (UA) Negative (Normal) 09/12/25 11:05 Urine Ketones Trace (Negative) 09/12/25 11:05 Urine Blood Negative (Negative) 09/12/25 11:05 Urine Nitrate Negative (Negative) 09/12/25 11:05 Urine Bilirubin Negative (Negative) 09/12/25 11:05 Urine Urobilinogen 1.0 mg/dL (Negative) 09/12/25 11:05 Ur Leukocyte Esterase 2+ (Negative) A 09/12/25 11:05 Urine RBC 6-10 /hpf (0-2) 09/12/25 11:05 Urine WBC 21-50 /hpf (0-5) H 09/12/25 11:05 Ur Squamous Epith Cells 21-50 /hpf (0-5) H 09/12/25 11:05 Amorphous Sediment Not Reportable 09/12/25 11:05 Urine Bacteria 4+ /hpf (NONE) H 09/12/25 11:05 Hyaline Casts 22.33 /lpf 09/12/25 11:05 Urine Opiates Screen Negative ng/mL (Negative) 09/12/25 11:05 Ur Barbiturates Screen Negative ng/mL (Negative) 09/12/25 11:05 Ur Phencyclidine Scrn Negative ng/mL (Negative) 09/12/25 11:05 Ur Amphetamines Screen Negative ng/mL (Negative) 09/12/25 11:05 U Benzodiazepines Scrn Negative ng/mL (Negative) 09/12/25 11:05 Urine Cocaine Screen Negative ng/mL (Negative) 09/12/25 11:05 U Marijuana (THC) Screen Negative ng/mL (Negative) 09/12/25 11:05 All radiology interpretation(s) finalized by discharge Discharge Plan Discharge Patient Disposition: Home Clinical Impression: Syncope, Urinary tract infection, Dehydration Condition: Stable Prescriptions: New cefdinir 300 mg capsule 300 mg PO BID 7 Days Qty: 14 0RF No Action metoclopramide HCl 5 mg tablet 5 mg PO DAILY Qty: 90 2RF pantoprazole 40 mg tablet,delayed release (DR/EC) 40 mg PO QDAY Qty: 90 1RF Rx Instructions: TAKE 1 TABLET BY MOUTH TWICE DAILY Xarelto 20 mg tablet See Rx Instructions .ROUTE .COMPLEX Qty: 90 3RF Dose Instruction: TAKE 1 TABLET BY MOUTH EVERY DAY with evening meal Rx Instructions: TAKE 1 TABLET BY MOUTH EVERY DAY with evening meal carvedilol 25 mg tablet See Rx Instructions .ROUTE .COMPLEX Qty: 180 3RF Dose Instruction: TAKE ONE TABLET BY MOUTH TWICE DAILY Rx Instructions: TAKE ONE TABLET BY MOUTH TWICE DAILY tramadol 50 mg tablet 100 mg PO Q8H PRN (Reason: pain) 30 Days Qty: 180 1RF lisinopril 20 mg tablet See Rx Instructions .ROUTE .COMPLEX Qty: 120 3RF Dose Instruction: TAKE TWO TABLETS BY MOUTH TWICE DAILY Rx Instructions: TAKE TWO TABLETS BY MOUTH TWICE DAILY hydralazine 100 mg tablet See Rx Instructions .ROUTE .COMPLEX Qty: 90 3RF Dose Instruction: TAKE 1 TABLET BY MOUTH THREE TIMES DAILY Rx Instructions: TAKE 1 TABLET BY MOUTH THREE TIMES DAILY Discharge Orders: Discharge ED (Routine); Ordered 09/12/25 Ordered By: Grace Brunson Referrals: William Reyna DO [Primary Care Provider, Family Practice] Discharge Diet: Usual diet Discharge Activity: Increase activity as tolerated Patient Instructions: Syncope (ED), Urinary Tract Infection in Older Adults (ED), Opioid Safety, Pain Management, Patient Portal & Cleve Instructions Activity Restrictions/Additional Instructions: Thank you for choosing [facility] for your healthcare needs today. You have been screened and evaluated and felt safe for discharge. Health conditions do change or evolve sometimes and as such it is important that you follow up with your Primary Doctor to be re checked, 3-5 days is a general good time frame for follow up. You are always welcome to return to the ED for re assessment if your symptoms are worsening or you have new concerns Print Language: Ukrainian Coding Level of Care Code ED Paint Mixer Hand for Fredis Vick
--- NOTE | 2025-09-12 10:46 | ECG_ITS ---
[facility] Date: 2025-09-12 Pat Name: Kathie Valerio Department: Room: Gender: Female Corporate Legal Assistant: : 1945 Requested By: Grace Orozco Order Number: [id number] Sahu MD: Naresh Appiah M.D. Measurements Intervals Allison Rate: 69 P: 0 ND: 0 QRS: 51 QRSD: 97 T: 41 QT: 408 QTc: 440 Interpretive Statements ATRIAL FIBRILLATION INCOMPLETE RIGHT BUNDLE BRANCH BLOCK [90+ ms QRS DURATION, TERMINAL R IN V1/V2, 40+ ms S IN I/aVL/V4/V5/V6] Compared to ECG 02/08/2025 11:32:15 Incomplete right bundle-branch block now present Atrial-paced complex(es) or rhythm no longer present Myocardial infarct finding no longer present Electronically Signed On 09-13-2025 11:59:09 CDT by Naresh Appiah M.D. [id number]
[2025-09-12 10:51] LABS: Hematocrit 39.7 % (36-47); Hemoglobin 12.70 g/dL (11.27-16.99); Mean Corpuscular HGB Conc 32.0 g/dL (30-55); Mean Corpuscular Hemoglobin 28.3 pg (27-33); Mean Corpuscular Volume 88.4 fl (85-98); Nucleated Red Blood Cells % 0 %; Platelet Count 280 10^3/cmm (157-399); Red Blood Count 4.49 10^6/uL (3.85-5.65); White Blood Count 10.05 10^3/uL (3.29-11.43)
[2025-09-12 11:02] LABS: INR 1.34 (0.8-1.2); Prothrombin Time 17.50 SECONDS (12.1-14.9)
[2025-09-12 11:03] LABS: Partial Thromboplastin Time 45.8 SECONDS (23.9-36.7)
--- OUTSIDE RECORDS SUMMARY | 2025-09-12 11:05 | XMS_ITS | Encounter Summary ---
Author Organization [facility] Address [address] [place] [address] Care Team Providers Care Clothing Room Supervisor Name Role Phone Unavailable Primary Care Provider Unavailabl e Encounter Details Date Type Department Care Team (Latest Contact Info) Description 06/28/2001 Outpatient Historical HIS [facility] Henry Gomez, Alton Chowdhury MD [address] [place] [id number] Shortness of breath (Primary Dx); Pain in joint, shoulder region Social History Tobacco Use Types Packs/Day Years Used Date Smoking Tobacco: Never Assessed Comments Unknown Sex and Gender Information Value Date Recorded Sex Assigned at Not on file 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
--- OUTSIDE RECORDS SUMMARY | 2025-09-12 11:05 | XMS_ITS | Patient Health Record ---
Author Organization [facility] Address [address] [place], [place] [id number] Support Name Relationship Address Phone Ismael Valerio Emergency Contact [address] [place], [place] [id number] Kathie Valerio Guarantor Unknown Allergies Allergen (clinical drug ingredient) Drug/Non Drug Allergy documented on EMR Reaction Allergy Type Onset Date Status amlodipine Amlodipine Besylate angioedema Drug Allergy Active hydrochlorothiazide Hydrochlorothiazide hives D rug Allergy Active hydroxychloroquine Hydroxychloroquine Sulfate leg cramps Drug Allergy Active levofloxacin Levofloxacin difficulty breathing Drug Allergy Active lisinopril Lisinopril cough Drug Allergy Active penicillin V Penicillin V Potassium anaphylaxis Drug Allergy Active sulfamethoxazole / trimethoprim Sulfamethoxazole-Trimet hoprim rash Drug Allergy Active Reason For Referral No Information Medications Medication SIG (Take, Route, Frequency, Duration) Notes Start Date End Date Status Metoprolol Tartrate 25 MG 1 tablet with food Orally Twice a day; Duration: 30 day(s) Active Spironolactone 50 MG 1 tablet with food Orally Once a day; Duration: 30 day(s) Active predniSONE 20 MG 1 tablet Orally Once a day; Duration: 5 day(s) 02/12/2020 Active Eliquis 5 MG as directed Orally BID Active traMADol HCl PRN Active Losartan Potassium 100 MG 1 tablet Orall y Once a day; Duration: 30 day(s) Active Social History Tobacco Use: Social History Observation Description Date Details (start date - stop date) Current Smoker NA - NA Tobacco Use/Smoking Question Answer Notes Are you a current smoker Problems Problem Type SNOMED Code ICD Code Onset Dates Problem Status W/U Status Risk Notes Problem Essential hypertension (09064840) Hypertension, unspecified type (I10) Active confirmed Problem Osteoarthritis of knee (240666887) Osteoarthritis of both knees, unspecified osteoarthritis type (M17.0) Active confirmed Plan Of Treatment No Information Insurance Providers Payer Name Payer Address Payer Phone Subscriber Number Group Number Insured Name Patient Relationship to Insured Coverage Start Date Coverage End Date Medicare [address] [place], [place] [id number] [place], [place] Self - patient is the insured [place] of [address] [id number] [place], [place] Self - patient is the insured Medical (General) History Medical History History ICD Code hypertension hx of pulmonary embolism Surgical History Surgery Date(Month/Year) cervical spine surgery x 2, fusion Hospitalization History Reason Date(Month/Year) PE
--- OUTSIDE RECORDS SUMMARY | 2025-09-12 11:05 | XMS_ITS | Clinical Summary ---
Author Organization [facility] Address [address] 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
--- OUTSIDE RECORDS SUMMARY | 2025-09-12 11:06 | XMS_ITS | Encounter Summary ---
Author Organization [facility] Address [address] [place] [address] Care Team Providers Care Resident Services Manager Name Role Phone Unavailable Primary Care Provider Unavailabl e Encounter Details Date Type Department Care Team (Latest Contact Info) Description 12/22/2000 Outpatient Historical HIS [facility] Fahad Milligan NO ADDRESS ON FILE Benign hypertension (Primary Dx); Osteoarthrosis, unspecified whether generalized or localized, other specified sites; Nonspecific elevation of levels of transaminase or lactic acid dehydrogenase (LDH) Social History Tobacco Use Types Packs/Day Years Used Date Smoking Tobacco: Never Assessed Comments Unknown Sex and Gender Information Value Date Recorded Sex Assigned at Not on file 

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
--- OUTSIDE RECORDS SUMMARY | 2025-09-12 11:06 | XMS_ITS | Clinical Summary ---
Author Organization [facility] Address [address] [place] [address] Care Team Providers Care Professional Tutor Name Role Phone Unavailable Primary Care Provider Unavailabl e Encounters Date Type Department Care Team Description 07/08/2025 Abstract [facility] Neuro[facility] [address] [place] [address] Mark Brewer MD from Last 3 Months Social History Tobacco Use Types Packs/Day Years Used Date Smoking Tobacco: Never Assessed Comments Unknown Sex and Gender Information Value Date Recorded Sex Assigned at Not on file Legal Sex Female 4:04 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
--- OUTSIDE RECORDS SUMMARY | 2025-09-12 11:06 | XMS_ITS | Patient Health Record ---
Author Organization [facility] Address [address] [place] [address] Care Team Providers Care Seed Packer Name Role Phone [facility] Primary C are Provider Unavailable Kilo Wilburn Unavailable [phone] Allergies Allergen (clinical drug ingredient) Drug/Non Drug Allergy documented on EMR Reaction Allergy Type Onset Date Status hydrochlorothiazide hydroCHLOROthiazide Unknown Drug Aller gy Active amlodipine Amlodipine Unknown Drug Allergy Activ e levofloxacin Levofloxacin Unknown Drug Allergy A ctive lisinopril Lisinopril Unknown Drug Allergy Activ e Penicillin Unknown Drug Allergy Active Substance with sulfonamide structure and antibacterial mechanism of action (substance) Sulfa Antibiotics Unknown Drug Allergy Active Reason For Referral No Information Medications Medication SIG (Take, Route, Frequency, Duration) Notes Start Date End Date Status Pantoprazole Sodium 40 MG Tablet Delayed Release 1 tablet Orally Twice a day Active Dexilant 60 MG Capsule Delayed Release 1 capsule Orally Daily; Duration: 30 days 09/02/2024 Not-Taking hydrALAZINE HCl 100 MG Tablet 1 tablet with food Orally Three a day Not-Taking Xarelto 20 MG Tablet 1 tablet with food Orally Once a day Active traMADol HCl 50 MG Tablet 1 tablet as ne eded Orally Once a day Active Lisinopril 20 MG Tablet 2 tablet Orally Twice a day Active Carvedilol 25 MG Tablet 1 tablet with fo od Orally Twice a day Active Social History Tobacco Use: Social History Observation Description Date Details (start date - stop date) Current Smoker NA - NA Social History Depression Screening Social Info Question Answer Notes depression screening findings Findings Negative (0 -4) 01/29/25 PHQ-9 Little interest or p mayelin in doing things Not at all Feeling down, depressed, or hopeless Not at all Trouble falling or staying asleep, or sleeping t oo much Not at all Feeling tired or having little energy Not at all Poor appetite or overeating Not at all Feeling bad about yourself, or that you are a failure, or have let yourself or your family down Not at all Trouble concentrating on thi ngs, such as reading the newspaper or watching television Not at all Moving or speaking so slowly that other people could have noticed. Or the opposite ? being so fidgety or restless that you have been moving around a lot more than usual Not at all Thoughts that you would be b araceli off , or of hurting yourself in some way Not at all Total Score 0 Tobacco Use: Social Info Question Answer Notes Tobacco Control (Standard) Tobacco use: Current smoker How often do you smoke cigarettes? Every day How many cigarettes a day do you smoke? 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) Active confirmed Problem Chronic constipation (348349084) Chronic constipation (K59.09) Active confirmed Problem Dysphagia (89992159) Dysphagia, unspecified type (R13.10) Active confirmed Problem Esophageal stricture (18500590) Esophageal stricture (K22.2) Active confirmed Problem Urge urinary incontinence (92096763) Urge urinary incontinence (N39.41) Active confirmed Problem Gastroduodenitis (542016892) Gastritis, presence of bleeding unspecified, unspecified chronicity, unspecified gastritis type (K29.70) Active confirmed Vital Signs Heart Rate 92 /min 01/29/2025 Temperature 97.8 degrees Fahrenheit 01/29/2025 Blood pressure diastolic 76 mm Hg 01/29/2025 Height-cm 172.72 cm 01/29/2025 Oximetry 98 % 01/29/2025 Weight-kg 79.38 kg 01/29/2025 Height 68 in 01/29/2025 Blood pressure systolic 130 mm Hg 01/29/2025 Weight 175 lbs 01/29/2025 BMI 26.61 kg/m2 01/29/2025 Encounters Encounter Location Date Provider Diagnosis [facility] [address] [place] [id number] 01/29/2025 Kilo Wilburn Dysphagia, unspecified type R13.10 and Depression screen Z13.31 Assessments Encounter Date Diagnosis (ICD Code) Assessment Notes Treatment Notes Treatment Clinical Notes Section Notes 01/29/2025 Dysphagia, unspecified type (ICD-10 - R13.10) She didn't have any outright stricture, but she continues to have diysphagia. She is maintaining her weight. She may have a bit of achalasia, or a symptomatic hiatal hernia. 01/29/2025 Depression screen (ICD-10 - Z13.31) Plan Of Treatment No Information Medical (General) History Medical History History ICD Code L kidney cancer GERD High Blood Pressure neuropathy waist down hernia stroke pulmonary embolism Surgical History Surgery Date(Month/Year) L hip broke EGD back surgery neck surgery L Kidney removed hysterectomy gall bladder removal
--- OUTSIDE RECORDS SUMMARY | 2025-09-12 11:06 | XMS_ITS | Encounter Summary ---
Author Organization [facility] Address [address] [place] [address] Care Team Providers Care Bindery Machine Setter/Set Up Operator Name Role Phone Unavailable Primary Care Provider Unavailabl e Encounter Details Date Type Department Care Team (Latest Contact Info) Description 04/11/2001 Outpatient Historical [facility] Fahad Milligan NO ADDRESS ON FILE Unspecified essential hypertension (Primary Dx) Social History Tobacco Use Types Packs/Day Years Used Date Smoking Tobacco: Never Assessed Comments Unknown Sex and Gender Information Value Date Recorded Sex Assigned at Not on file Legal Sex 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
--- OUTSIDE RECORDS SUMMARY | 2025-09-12 11:06 | XMS_ITS | Encounter Summary ---
Author Organization [employer] [facility] Address [address] [place] [address] Care Team Providers Care Parcel Wrapper Name Role Phone Unavailable Primary Care Provider Unavailabl e Encounter Details Date Type Department Care Team (Latest Contact Info) Description 01/26/2001 Outpatient Historical [facility] Fahad Milligan NO ADDRESS ON FILE Other and unspecified hyperlipidemia (Primary Dx); Other abnormal blood chemistry Social History Tobacco Use Types Packs/Day Years Used Date Smoking Tobacco: Never Assessed Comments Unknown Sex and Gender Information Value Date Recorded Sex Assigned at Not on file 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
--- OUTSIDE RECORDS SUMMARY | 2025-09-12 11:06 | XMS_ITS | Encounter Summary ---
Author Organization [facility] Address [address] [place] [address] Care Team Providers Care Plasma Center Technician Name Role Phone Unavailable Primary Care Provider Unavailabl e Encounter Details Date Type Department Care Team (Latest Contact Info) Description 06/13/2001 Outpatient Historical [facility] Henry Gomez, Alton Chowdhury MD [address] [place] [phone] Cardiomegaly (Primary Dx); Unspecified hereditary and idiopathic peripheral neuropathy; Right bundle branch block Social History Tobacco Use Types Packs/Day Years Used Date Smoking Tobacco: Never Assessed Comments Unknown Sex and Gender Information Value Date Recorded Sex Assigned at Not on file 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
--- OUTSIDE RECORDS SUMMARY | 2025-09-12 11:06 | XMS_ITS | Encounter Summary ---
Author Organization [facility] Address [address] [place] [address] Care Team Providers Care Offset Lithographic Press Operator Name Role Phone Unavailable Primary Care Provider Unavailabl e Encounter Details Date Type Department Care Team (Latest Contact Info) Description 04/16/1999 Outpatient Historical HIS [facility] Fahad Milligan NO ADDRESS ON FILE Unspecified essential hypertension (Primary Dx); Other and unspecified hyperlipidemia; Skin sensation disturb Social History Tobacco Use Types Packs/Day Years Used Date Smoking Tobacco: Never Assessed Comments Unknown Sex and Gender Information Value Date Recorded Sex Assigned at Not on file Legal Sex Female 5:36 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
[2025-09-12 11:07] LABS: Alanine Aminotransferase 6 U/L (0-33); Albumin Level 3.4 g/dL (3.5-5.2); Alkaline Phosphatase 104 U/L (35-105); Anion Gap 17.5 (5-19); Aspartate Amino Transferase 14 U/L (0-32); Blood Urea Nitrogen 19 mg/dL (8-23); Calcium 8.5 mg/dL (8.5-10.5); Carbon Dioxide 22 mmol/L (22-29); Chloride 101 mmol/L (98-107); Creatinine Clr Calc Pharmacy 44.1911; Globulin 3.1 g/dL (1.3-4.6); Glucose 123 mg/dL (65-115); Osmolality Calculated 286 mOsm/kg (285-295); Potassium 4.5 mmol/L (3.5-5.1); Sodium 136 mmol/L (136-145); Total Protein 6.5 g/dL (6.6-8.7)
[2025-09-12 11:09] VITALS: BP 121/49
[2025-09-12 11:16] LABS: Glucose Urine UA Negative (Normal); Nitrate Urine Negative (Negative); Specific Gravity, Urine 1.024 (1.005-1.030)
[2025-09-12 11:16] LABS: Lactic Sepsis W/Reflex 1.8 mmol/L (0.5-2.2)
[2025-09-12 11:21] LABS: Add Urine Microscopic? YES
[2025-09-12 11:22] LABS: PCP Screen Urine Negative (Negative)
[2025-09-12 11:27] VITALS: BP 122/78; PULSE 88; O2SAT 98
[2025-09-12 11:37] LABS: UA Slide Review UA Slide Review Perf
[2025-09-12] MEDS: cefTRIAXone 1,000 mg SDV 1000 MG IVP (11:55)
--- NOTE | 2025-09-12 11:59 | PC.NURSE ---
fluids and abx ordered same time as abx, discharge delayed
[2025-09-12 12:36] VITALS: BP 169/72; PULSE 87; O2SAT 93
== END 2025-09-12 12:59 | disposition home or self-care (01) ==
PROVIDERS: Emergency Provider Emergency Medicine; PCP Family Medicine
DX: R55 Syncope and collapse (principal); N39.0 Urinary tract infection, site not specified; E86.0 Dehydration; Z72.0 Tobacco use; I10 Essential (primary) hypertension; Z85.528 Personal history of other malignant neoplasm of kidney; E78.5 Hyperlipidemia, unspecified
CPT/HCPCS: 36415; 36416; 70450; 80053; 80306; 81001; 82962; 83605; 85025; 85610; 85730; 87040; 93005; 96374; 99285; J0696; J7030